=== PATIENT | male | born 1935 | race Caucasian/White ===

== ENCOUNTER → 2016-08-14 | Outpatient (CLI) | payer MEDICARE, BC ==
--- NOTE | 2016-08-14 15:47 | XR ---
EXAMINATION TYPE: XR chest 2V, XR ribs LT DATE OF EXAM: 08/14/2016 11:26 AM COMPARISON: Prior chest x-ray August 31, 2009. HISTORY: Fall injury with chest and left lower rib pain. TECHNIQUE: Frontal and lateral views of the chest are obtained. A frontal and oblique images left-si ded ribs are acquired. FINDINGS: There is chronic parenchymal change without focal air space opacity, pleural effusion, or pneumothorax seen. The cardiac silhouette size is enlarged with atherosclerotic aorta. There is extr a convex scoliotic curvature centered in the lower thoracic spine with multilevel spurring.. DGD in left GH joint is noted. There are old healed fracture deformities of left lateral sixth through eighth ribs. No acute displac ed left-sided rib fracture is clearly evident. Osseous structures are demineralized. IMPRESSION: 1. Cardiomegaly and chronic changes without acute pulmonary process. 2. Old minimally displaced healed left lateral rib fractures. No acute displaced rib fractures are cl early evident.
== END ==
LOC: RADXRMAIN 10:57
PROVIDERS: ATTEND Internal Medicine
DX: I51.7 Cardiomegaly (principal); Z87.81 Personal history of (healed) traumatic fracture
CPT/HCPCS: 71020

== ENCOUNTER → 2020-09-16 | Outpatient (CLI) | payer MEDICARE, BC ==
--- NOTE | 2020-09-16 14:32 | US ---
EXAMINATION TYPE: US venous doppler duplex LE DATE OF EXAM: 09/16/2020 2:18 PM COMPARISON: NONE CLINICAL HISTORY: R22.43 Localized swelling, mass and lump, lower li. edema SIDE PERFORMED: bilateral TECHNIQUE: The lower extremity deep venous system is examined utilizing real time linear array sonog apollo with graded compression, doppler sonography and color-flow sonography. VESSELS IMAGED: Common Femoral Vein Deep Femoral Vein Greater Saphenous Vein * Femoral Vein Popliteal Vein Small Saphenous Vein * Proximal Calf Veins (* superficial vessels) Right Leg: no evidence of DVT as visualized Left Leg: no evidence of DVT as visualized Grayscale, color doppler, spectral doppler imaging performed of the deep veins of the bilateral lower extremities. There is normal flow, compressibility, vascular waveforms. IMPRESSION: No ultrasound evidence for acute DVT in either lower extremity.
== END | disposition home or self-care (01) ==
LOC: RADUSWWP 13:30
PROVIDERS: ATTEND Internal Medicine
DX: R22.43 Localized swelling, mass and lump, lower limb, bilateral (principal)
CPT/HCPCS: 93970

== ENCOUNTER 2020-10-24 10:52 | Emergency (ER) | payer MEDICARE, BC ==
[2020-10-24 11:01] VITALS: RESP 16
--- NOTE | 2020-10-24 11:19 | ED ---
General Adult HPI - General Chief complaint: Urogenital Stated complaint: Hematuria Time Seen by Provider: 10/24/20 11:05 Source: patient, RN notes reviewed Mode of arrival: ambulatory Limitations: no limitations - History of Present Illness Initial comments: 85-year-old male presents emergency Department with chief complaint of hematuria. Patient states started late Sunday and has been persistent. Patient hurts when he urinates. Patient states he tried some [id number] Azo with no relief. She does take Coumadin no history of kidney issues. Patient states she's never had hematuria like this in the past mild lower abdominal pain no flank pain no chest pain or shortness breath no noted fevers or chills - Related Data Home Medications Medication Instructions Recorded Confirmed Aspirin [Adult Low Dose Aspirin EC] 81 mg PO DAILY 03/28/18 06/03/18 Digoxin [Lanoxin] 1 tab PO DAILY 03/28/18 06/03/18 Lovastatin [Mevacor] 10 mg PO HS 03/28/18 06/03/18 sitaGLIPtin PHOS/metFORMIN HCL 1 tab PO DAILY 03/28/18 06/03/18 [Janumet Xr 100-1,000 mg Tablet] Repaglinide [Prandin] 2 mg PO AC-TID 04/01/18 06/03/18 Warfarin [Coumadin] 1 tab PO DAILY 04/01/18 06/03/18 metFORMIN HCL 1,000 mg PO BID 04/01/18 06/03/18 Previous Rx's Medication Instructions Recorded Cephalexin [Keflex] 500 mg PO Q8HR #30 cap 10/24/20 Allergies Allergy/AdvReac Type Severity Reaction Status Date / Time No Known Allergies Allergy Verified 10/24/20 10:55 Review of Systems ROS Statement: Those systems with pertinent positive or pertinent negative responses have been documented in the HPI. ROS Other: All systems not noted in ROS Statement are negative. Past Medical History Past Medical History: Diabetes Mellitus, Hyperlipidemia History of Any Multi-Drug Resistant Organisms: None Reported Past Surgical History: Appendectomy, Heart Catheterization With Stent, Tonsillectomy Past Psychological History: No Psychological Hx Reported Smoking Status: Former smoker Past Alcohol Use History: Occasional Past Drug Use History: None Reported - Past Family History Mother Family Medical History: Cancer General Exam Limitations: no limitations General appearance: alert, in no apparent distress Head exam: Present: atraumatic, normocephalic, normal inspection Neck exam: Present: normal inspection, full ROM. Absent: tenderness, meningismus, lymphadenopathy Respiratory exam: Present: normal lung sounds bilaterally. Absent: respiratory distress, wheezes, rales, rhonchi, stridor Cardiovascular Exam: Present: regular rate, normal rhythm, normal heart sounds. Absent: systolic murmur, diastolic murmur, rubs, gallop, clicks GI/Abdominal exam: Present: soft, tenderness, normal bowel sounds. Absent: distended, guarding, rebound, rigid Back exam: Absent: CVA tenderness (R), CVA tenderness (L) Neurological exam: Present: alert Skin exam: Present: warm, dry, intact, normal color. Absent: rash Course Vital Signs 10/24/20 10:57 Temperature 97.4 F L Pulse Rate 69 Respiratory 16 Rate Blood Pressure 107/55 O2 Sat by Pulse 97 Oximetry Medical Decision Making - Medical Decision Making Urinalysis shows evidence of hematuria, UTI. Patient's labs unremarkable otherwise patient CT does not show any evidence of renal or bladder mass though there is some thickened wall consistent with cystitis. Patient was given Rocephin emergency from will be discharged on antibiotics and return parameters were discussed. - Lab Data Result diagrams: 10/24/20 11:39 10/24/20 11:39 Lab Results 10/24/20 10/24/20 10/24/20 Range/Units 11:39 11:39 11:39 WBC 13.8 H (3.8-10.6) k/uL RBC 5.18 (4.30-5.90) m/uL Hgb 14.9 (13.0-17.5) gm/dL Hct 45.0 (39.0-53.0) % MCV 86.9 (80.0-100.0) fL MCH 28.7 (25.0-35.0) pg MCHC 33.0 (31.0-37.0) g/dL RDW 13.5 (11.5-15.5) % Plt Count 294 (150-450) k/uL MPV 6.5 Neutrophils % 82 % Lymphocytes % 11 % Monocytes % 5 % Eosinophils % 0 % Basophils % 0 % Neutrophils # 11.3 H (1.3-7.7) k/uL Lymphocytes # 1.6 (1.0-4.8) k/uL Monocytes # 0.7 (0-1.0) k/uL Eosinophils # 0.1 (0-0.7) k/uL Basophils # 0.0 (0-0.2) k/uL PT 22.0 H (9.0-12.0) sec INR 2.3 H (<1.2) APTT 33.9 H (22.0-30.0) sec Sodium (137-145) mmol/L Potassium (3.5-5.1) mmol/L Chloride (98-107) mmol/L Carbon Dioxide (22-30) mmol/L Anion Gap mmol/L BUN (9-20) mg/dL Creatinine (0.66-1.25) mg/dL Est GFR (CKD-EPI)AfAm (>60 ml/min/1.73 sqM) Est GFR (CKD-EPI)NonAf (>60 ml/min/1.73 sqM) Glucose (74-99) mg/dL Plasma Lactic Acid Shaheed (0.7-2.0) mmol/L Calcium (8.4-10.2) mg/dL Total Bilirubin (0.2-1.3) mg/dL AST (17-59) U/L ALT (4-49) U/L Alkaline Phosphatase (38-126) U/L Total Protein (6.3-8.2) g/dL Albumin (3.5-5.0) g/dL Amylase (30-110) U/L Lipase (23-300) U/L Urine Color Red Urine Appearance Bloody (Clear) Urine RBC >182 H (0-5) /hpf Urine WBC >182 H (0-5) /hpf Urine Bacteria Rare H (None) /hpf 10/24/20 10/24/20 Range/Units 11:39 11:39 WBC (3.8-10.6) k/uL RBC (4.30-5.90) m/uL Hgb (13.0-17.5) gm/dL Hct (39.0-53.0) % MCV (80.0-100.0) fL MCH (25.0-35.0) pg MCHC (31.0-37.0) g/dL RDW (11.5-15.5) % Plt Count (150-450) k/uL MPV Neutrophils % % Lymphocytes % % Monocytes % % Eosinophils % % Basophils % % Neutrophils # (1.3-7.7) k/uL Lymphocytes # (1.0-4.8) k/uL Monocytes # (0-1.0) k/uL Eosinophils # (0-0.7) k/uL Basophils # (0-0.2) k/uL PT (9.0-12.0) sec INR (<1.2) APTT (22.0-30.0) sec Sodium 137 (137-145) mmol/L Potassium 5.3 H (3.5-5.1) mmol/L Chloride 103 (98-107) mmol/L Carbon Dioxide 28 (22-30) mmol/L Anion Gap 6 mmol/L BUN 21 H (9-20) mg/dL Creatinine 0.75 (0.66-1.25) mg/dL Est GFR (CKD-EPI)AfAm >90 (>60 ml/min/1.73 sqM) Est GFR (CKD-EPI)NonAf 83 (>60 ml/min/1.73 sqM) Glucose 108 H (74-99) mg/dL Plasma Lactic Acid Shaheed 1.9 (0.7-2.0) mmol/L Calcium 9.0 (8.4-10.2) mg/dL Total Bilirubin 0.8 (0.2-1.3) mg/dL AST 27 (17-59) U/L ALT 23 (4-49) U/L Alkaline Phosphatase 111 (38-126) U/L Total Protein 6.8 (6.3-8.2) g/dL Albumin 4.1 (3.5-5.0) g/dL Amylase 55 (30-110) U/L Lipase 162 (23-300) U/L Urine Color Urine Appearance (Clear) Urine RBC (0-5) /hpf Urine WBC (0-5) /hpf Urine Bacteria (None) /hpf Disposition Clinical Impression: UTI (urinary tract infection) Disposition: HOME SELF-CARE Condition: Stable Instructions (If sedation given, give patient instructions): Urinary Tract Infection in Men (ED) Additional Instructions: Please return to the Emergency Department if symptoms worsen or any other concerns. Prescriptions: Cephalexin [Keflex] 500 mg PO Q8HR #30 cap Is patient prescribed a controlled substance at d/c from ED?: No Referrals: Maskoni,Bashar, MD [Primary Care Provider] - 1-2 days Basim Shaw MD [STAFF PHYSICIAN] - 1-2 days Time of Disposition: 12:41
[2020-10-24 11:50] LABS: Basophils % (A) 0 %; Eosinophils # (A) 0.1 k/uL (0-0.7); Eosinophils % (A) 0 %; HGB 14.9 gm/dL (13.0-17.5); Lymphocytes # (A) 1.6 k/uL (1.0-4.8); Lymphocytes % (A) 11 %; MCH 28.7 pg (25.0-35.0); MCV 86.9 fL (80.0-100.0); Mean Platelet Volume 6.5; Monocytes # (A) 0.7 k/uL (0-1.0); Monocytes % (A) 5 %; Neutrophils # (A) 11.3 k/uL (1.3-7.7); Neutrophils % (A) 82 %; Platelet Count 294 k/uL (150-450); RBC 5.18 m/uL (4.30-5.90); RDW 13.5 % (11.5-15.5); WBC 13.8 k/uL (3.8-10.6)
[2020-10-24 11:59] LABS: ALT 23 U/L (4-49); AST 27 U/L (17-59); African American GFR (CKD) >90 (>60 ml/min/1.73 sqM); Albumin 4.1 g/dL (3.5-5.0); Alkaline Phosphatase 111 U/L (38-126); Amylase 55 U/L (30-110); Anion Gap 6 mmol/L; Blood Urea Nitrogen 21 mg/dL (9-20); Carbon Dioxide 28 mmol/L (22-30); Chloride 103 mmol/L (98-107); Glucose 108 mg/dL (74-99); Lipase 162 U/L (23-300); Non-African American GFR(CKD) 83 (>60 ml/min/1.73 sqM); Potassium 5.3 mmol/L (3.5-5.1); Sodium 137 mmol/L (137-145); Total Bilirubin 0.8 mg/dL (0.2-1.3); Total Protein 6.8 g/dL (6.3-8.2)
[2020-10-24 12:04] LABS: Bacteria,Urine Rare /hpf; RBC,Urine >182 /hpf (0-5); WBC,Urine >182 /hpf (0-5)
[2020-10-24 12:06] LABS: INR 2.3 (<1.2); Partial Thromboplastin Time 33.9 sec (22.0-30.0)
[2020-10-24 12:09] LABS: Appearance,Urine Bloody (Clear); Color,Urine Red
--- NOTE | 2020-10-24 12:37 | CT ---
EXAMINATION TYPE: CT abdomen pelvis wo con DATE OF EXAM: 10/24/2020 COMPARISON: HISTORY: hematuria CT DLP: 537.4 mGycm Automated exposure control for dose reduction was used. TECHNIQUE: Helical acquisition of images from the lung bases through the pelvis. FINDINGS: Lack of intravenous contrast could compromise sensitivity. The heart is enlarged. There is metallic density at the level of the mitral annulus. Coronary artery calcifications are present. Some metallic density seen at the root of the aorta. LUNG BASES: There are some pleural calcifications present. Interstitium is increased. No pleural martin cardial effusion. AORTA: No significant abnormality is appreciated. LIVER/GB: No significant abnormality is appreciated. PANCREAS: No significant abnormality is seen. SPLEEN: No significant abnormality is seen. ADRENALS: 13 mm soft tissue left adrenal nodule is seen. KIDNEYS: No significant abnormality is seen. REPRODUCTIVE ORGANS: Prostate is enlarged and shows associated calcification URINARY BLADDER: There is a thickened wall. Question some perivesicle inflammatory change BOWEL: Diverticular changes noted especially in the sigmoid colon and descending colon, there is daryn e retained fecal debris present within the colon associated transverse colon and ascending colon, no evident appendicitis. FREE AIR: No Free Air is visible. ASCITES: None visible. PELVIC ADENOPATHY: None visualized. RETROPERITONEAL ADENOPATHY: No Retroperitoneal Adenopathy visible. OSSEOUS STRUCTURES: Degenerative disc changes, facet arthropathy change present within the lumbar sp ine, spondylolysis bilaterally at L5, anterolisthesis grade 1 to grade 2 L5-S1. 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 DIVERTICULOSIS. NONCONTRA ST EXAM AND ADDITIONAL FINDINGS ABOVE
[2020-10-24] MEDS ORDERED: cefTRIAXone IN SWFI 1,000 MG/10 ML SYRINGE IVP STA (12:38)
[2020-10-24] MEDS ORDERED: CEPHALEXIN 500MG STARTER PACK 4 CAP BTL PO STA (12:46)
[2020-10-24 13:05] VITALS: BP 119/58; PULSE 82; TEMP 97.6
== END 2020-10-24 13:05 | disposition home or self-care (01) ==
LOC: EC 10:52
DX: N39.0 Urinary tract infection, site not specified (principal); E11.9 Type 2 diabetes mellitus without complications; E78.5 Hyperlipidemia, unspecified; Z87.891 Personal history of nicotine dependence; Z79.82 Long term (current) use of aspirin; Z79.84 Long term (current) use of oral hypoglycemic drugs; Z79.01 Long term (current) use of anticoagulants
CPT/HCPCS: 36415; 80053; 82150; 83605; 83690; 85025; 85610; 85730; 81001; 87086; 74176; 99284; 96374; J0696

== ENCOUNTER → 2021-12-28 | Outpatient (CLI) | payer MEDICARE ==
--- NOTE | 2021-12-28 15:19 | XR ---
Right shoulder Limited HISTORY: Pain 2 views of the right shoulder, comparison chest x-ray 07/17/2016 Calcification is present in the insertion of the rotator cuff tendon on the proximal humerus. Acromio n clavicular joint shows arthropathy. Alignment is maintained, there is no evident fracture or disloc ation. Right upper lung shows some questionable scarring laterally versus pleural plaques similar to prior chest x-ray. Distal acromion appears somewhat downturned. IMPRESSION: Possible calcific tendinitis. Acromioclavicular joint arthropathy. Correlate for impingem ent. Findings in the right lung as described..
== END | disposition home or self-care (01) ==
LOC: RADXRMAIN 14:30
PROVIDERS: ATTEND Internal Medicine
DX: M19.011 Primary osteoarthritis, right shoulder (principal)

== ENCOUNTER 2022-04-05 12:36 | Inpatient (IN) | payer MEDICARE, BC ==
--- NOTE | 2022-04-05 13:38 | ED ---
General Adult HPI - General Chief complaint: Extremity Injury, Upper Stated complaint: rt arm pain/swelling Time Seen by Provider: 04/05/22 12:40 Source: patient, RN notes reviewed, old records reviewed Mode of arrival: ambulatory Limitations: no limitations - History of Present Illness Initial comments: This is an 86-year-old male presents emergency department stating that over the last 2 days he has had some significant swelling in his right arm he doesn't believe he was stung or bit patient is not sure. There is an area of ecchymosis on the posterior medial aspect of the right elbow and there is an area of skin breakdown. Or possibly sloughing of the skin in that area. The bicep is erythematous and warm however the rest of the arm feels at normal temperature but touching the bicep does cause him some pain. Patient denies any fever chill s. Patient denies any injury. Patient denies any difficulty breathing shortness of breath per patient any other symptoms at this time. Patient denies ever having something similar in the past. Patient denies any other extremity with swelling or edema - Related Data Home Medications Medication Instructions Recorded Confirmed Aspirin [Adult Low Dose Aspirin EC] 81 mg PO DAILY 03/28/18 06/03/18 Digoxin [Lanoxin] 1 tab PO DAILY 03/28/18 06/03/18 Lovastatin [Mevacor] 10 mg PO HS 03/28/18 06/03/18 sitaGLIPtin PHOS/metFORMIN HCL 1 tab PO DAILY 03/28/18 06/03/18 [Janumet Xr 100-1,000 mg Tablet] Repaglinide [Prandin] 2 mg PO AC-TID 04/01/18 06/03/18 Warfarin [Coumadin] 1 tab PO DAILY 04/01/18 06/03/18 metFORMIN HCL [Glucophage] 1,000 mg PO BID 04/01/18 06/03/18 Previous Rx's Medication Instructions Recorded Cephalexin [Keflex] 500 mg PO Q8HR #30 cap 10/24/20 Allergies Allergy/AdvReac Type Severity Reaction Status Date / Time No Known Allergies Allergy Verified 04/05/22 12:42 Review of Systems ROS Statement: Those systems with pertinent positive or pertinent negative responses have been documented in the HPI. ROS Other: All systems not noted in ROS Statement are negative. Past Medical History Past Medical History: Diabetes Mellitus, Hearing Disorder / Deafness, Hyperlipidemia History of Any Multi-Drug Resistant Organisms: None Reported Past Surgical History: Appendectomy, Heart Catheterization With Stent, Tonsillectomy Past Psychological History: No Psychological Hx Reported Smoking Status: Former smoker Past Alcohol Use History: Occasional Past Drug Use History: None Reported - Past Family History Mother Family Medical History: Cancer General Exam - General Exam Comments Initial Comments: GENERAL: Patient is well-developed and well-nourished. Patient is nontoxic and well- hydrated and is in no acute distress. Patient has no pain in the arm unless it is touched in the biceps. ENT Neck is soft and supple. No significant lymphadenopathy is noted. Oropharynx is clear. Moist mucous membranes. Neck has full range of motion without eliciting any pain. EYES: The sclera were anicteric and conjunctiva were pink and moist. Extraocular movements were intact and pupils were equal round and reactive to light. Eyelids were unremarkable. PULMONARY: Unlabored respirations. Good breath sounds bilaterally. No audible rales rhonchi or wheezing was noted. CARDIOVASCULAR: There is a regular rate and rhythm without any murmurs gallops or rubs. Patient has palpable radial pulses ABDOMEN: Soft and nontender with normal bowel sounds. SKIN: There is a breakdown of the skin in the posterior elbow region where the ecchymosis exists. NEUROLOGIC: Patient is alert and oriented x3. Cranial nerves II through XII are grossly intact. Motor and sensory are also intact. Normal speech, volume and content. Symmetrical smile. MUSCULOSKELETAL: Normal extremities with adequate strength and full range of motion. Patient's left arm from the shoulder down is edematous all the way to the hand. Patient has some erythema on the anterior biceps area and it is tender to touch that area. LYMPHATICS: No significant lymphadenopathy is noted PSYCHIATRIC: Normal psychiatric evaluation. Limitations: no limitations Course Vital Signs 04/05/22 12:38 Temperature 98.0 F Pulse Rate 80 Respiratory 20 Rate Blood Pressure 133/80 O2 Sat by Pulse 96 Oximetry Medical Decision Making - Medical Decision Making Ultrasound of the right upper arm shows a DVT. Because of the significant swelling of the arm and the break of skin on the posterior elbow along with the fact the patient is oriented Coumadin I felt the patient needed to be admitted and be seen bypass. Spoke with sound physician's they were in agreement with this. I admitted the patient wrote admitting orders I consulted vascular - Lab Data Result diagrams: 04/05/22 13:34 04/05/22 13:34 Lab Results 04/05/22 04/05/22 04/05/22 Range/Units 13:34 13:34 13:34 WBC 8.5 (3.8-10.6) k/uL RBC 4.12 L (4.30-5.90) m/uL Hgb 10.9 L (13.0-17.5) gm/dL Hct 33.8 L (39.0-53.0) % MCV 82.0 (80.0-100.0) fL MCH 26.6 (25.0-35.0) pg MCHC 32.4 (31.0-37.0) g/dL RDW 14.6 (11.5-15.5) % Plt Count 443 (150-450) k/uL MPV 7.2 Neutrophils % 81 % Lymphocytes % 9 % Monocytes % 6 % Eosinophils % 0 % Basophils % 0 % Neutrophils # 6.9 (1.3-7.7) k/uL Lymphocytes # 0.8 L (1.0-4.8) k/uL Monocytes # 0.5 (0-1.0) k/uL Eosinophils # 0.0 (0-0.7) k/uL Basophils # 0.0 (0-0.2) k/uL Hypochromasia Slight Sodium 135 L (137-145) mmol/L Potassium 4.9 (3.5-5.1) mmol/L Chloride 102 (98-107) mmol/L Carbon Dioxide 26 (22-30) mmol/L Anion Gap 7 mmol/L BUN 17 (9-20) mg/dL Creatinine 0.69 (0.66-1.25) mg/dL Est GFR (CKD-EPI)AfAm >90 (>60 ml/min/1.73 sqM) Est GFR (CKD-EPI)NonAf 86 (>60 ml/min/1.73 sqM) Glucose 193 H (74-99) mg/dL Plasma Lactic Acid Shaheed 2.8 H* (0.7-2.0) mmol/L Calcium 7.9 L (8.4-10.2) mg/dL Total Bilirubin 0.7 (0.2-1.3) mg/dL AST 34 (17-59) U/L ALT 31 (4-49) U/L Alkaline Phosphatase 143 H (38-126) U/L Total Protein 5.8 L (6.3-8.2) g/dL Albumin 2.9 L (3.5-5.0) g/dL Disposition Clinical Impression: DVT (deep venous thrombosis) Disposition: ADMITTED IP TO THIS HOSP Referrals: None,Stated [Primary Care Provider] - 1-2 days Time of Disposition: 15:05
[2022-04-05 13:42] LABS: Basophils % (A) 0 %; Eosinophils % (A) 0 %; HCT 33.8 % (39.0-53.0); HGB 10.9 gm/dL (13.0-17.5); Hypochromasia Slight; Lymphocytes # (A) 0.8 k/uL (1.0-4.8); Lymphocytes % (A) 9 %; MCH 26.6 pg (25.0-35.0); MCHC 32.4 g/dL (31.0-37.0); Mean Platelet Volume 7.2; Monocytes # (A) 0.5 k/uL (0-1.0); Monocytes % (A) 6 %; Neutrophils # (A) 6.9 k/uL (1.3-7.7); Neutrophils % (A) 81 %; Platelet Count 443 k/uL (150-450); RBC 4.12 m/uL (4.30-5.90); RDW 14.6 % (11.5-15.5); WBC 8.5 k/uL (3.8-10.6)
[2022-04-05 13:53] LABS: ALT 31 U/L (4-49); AST 34 U/L (17-59); African American GFR (CKD) >90 (>60 ml/min/1.73 sqM); Albumin 2.9 g/dL (3.5-5.0); Alkaline Phosphatase 143 U/L (38-126); Anion Gap 7 mmol/L; Blood Urea Nitrogen 17 mg/dL (9-20); Calcium 7.9 mg/dL (8.4-10.2); Carbon Dioxide 26 mmol/L (22-30); Chloride 102 mmol/L (98-107); Glucose 193 mg/dL (74-99); Non-African American GFR(CKD) 86 (>60 ml/min/1.73 sqM); Potassium 4.9 mmol/L (3.5-5.1); Sodium 135 mmol/L (137-145); Total Bilirubin 0.7 mg/dL (0.2-1.3); Total Protein 5.8 g/dL (6.3-8.2)
--- NOTE | 2022-04-05 14:19 | US ---
EXAMINATION TYPE: US venous doppler duplex UE RT DATE OF EXAM: 04/05/2022 COMPARISON: NONE CLINICAL HISTORY: Swollen arm. red, hot, swollen right arm that is weeping, no h/o dvt, no known inju ry SIDE PERFORMED: Right Right Arm: Brachial veins at mid upper arm had internal echoes, were dilated and not compressible. Pr obable DVT. Brachial vein at axilla junction and brachial veins at antecubital fossa were wnl. IMPRESSION: Findings compatible with DVT as noted above.
[2022-04-05] MEDS ORDERED: VANCOMYCIN IV PER PHARMACY 1 EACH MISC MISCELLANE SCH (15:30)
[2022-04-05] MEDS ORDERED: HEPARIN SODIUM 1,000 UN/ML (10ML VL) IV PRN (15:34)
[2022-04-05] MEDS ORDERED: HEPARIN SODIUM 1,000 UN/ML (10ML VL) IV ONE (15:34)
[2022-04-05] MEDS ORDERED: METOPROLOL SUCCINATE (ER) 25 MG TAB.ER.24H PO STA (15:50)
[2022-04-05] MEDS ORDERED: DEXTROSE 50% SYRINGE 50 ML IVP PRN (15:56)
[2022-04-05] MEDS ORDERED: VANCOMYCIN 1,500 MG in SODIUM CHLORIDE 0.9% 500 ML 500 ML IVPB ONE (16:00)
[2022-04-05] MEDS: PANTOPRAZOLE 40 MG TABLET PO SCH (16:23)
--- NOTE | 2022-04-05 16:44 | XR ---
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 Elbow joint is intact. There is soft tissue swelling posterior to the distal humeru s. There is vascular calcification. IMPRESSION: There is some soft tissue swelling around the lower humerus. No fracture seen. Osteoarthr itis in the shoulder joint.
[2022-04-05 16:47] LABS: Basophils % (A) 0 %; Eosinophils % (A) 0 %; HCT 35.8 % (39.0-53.0); HGB 11.5 gm/dL (13.0-17.5); Hypochromasia Moderate; Lymphocytes # (A) 1.5 k/uL (1.0-4.8); Lymphocytes % (A) 17 %; MCH 26.5 pg (25.0-35.0); MCV 82.7 fL (80.0-100.0); Mean Platelet Volume 7.1; Monocytes # (A) 0.5 k/uL (0-1.0); Monocytes % (A) 6 %; Neutrophils # (A) 6.2 k/uL (1.3-7.7); Neutrophils % (A) 73 %; Platelet Count 484 k/uL (150-450); RBC 4.32 m/uL (4.30-5.90); RDW 14.6 % (11.5-15.5); WBC 8.5 k/uL (3.8-10.6)
[2022-04-05] MEDS: SODIUM CHLORIDE 0.9% 1,000 ML IV SCH (16:52)
--- NOTE | 2022-04-05 16:53 | P.HPIM ---
History of Present Illness H&P Date: 04/05/22 Chief Complaint: RIGHT ARM SWELLING This is a pleasant 86-year-old male who presents to [facility] with sudden onset right upper extremity swelling and pain. About a week ago patient had a fall and hit his right arm. Patient didn't think anything of it a nd went about his day. Patient also states that he had a presyncopal fall earlier today. Patient's son came to visit him and asked his father why his right arm was swollen. Patient is a poor historian and really didn't think anything of it. As a result, patient's son brought him in to the ER for further evaluation. Ultrasound of the right upper extremity was ordered and DVT was identified. Patient has a known history of A. fib and is on Coumadin and digoxin. Her son and patient patient is very responsible taking his medications as directed. Patient is a type II diabetic and has noted that early in the morning his blood sugars drop in the 50s. Patient also has history of hypertension and hyperlipidemia. Patient currently denies chest pain, shortness breath, nausea, vomiting, fever, or chills. Laboratory data was significant for hemoglobin of 10.9 hematocrit of 33.8 lactic acid of 2.8 and calcium 7.9. EKG was not done yet in the ER when he was evaluated the patient. Review of Systems A 14 point review of systems was assessed patient was only positive for those discussed in HPI Past Medical History Past Medical History: Atrial Fibrillation, Dementia, Diabetes Mellitus, Hearing Disorder / Deafness, Hyperlipidemia History of Any Multi-Drug Resistant Organisms: None Reported Past Surgical History: Appendectomy, Heart Catheterization With Stent, Tonsille ctomy Past Psychological History: No Psychological Hx Reported Smoking Status: Former smoker Past Alcohol Use History: Occasional Past Drug Use History: None Reported - Past Family History Mother Family Medical History: Cancer Medications and Allergies Home Medications Medication Instructions Recorded Confirmed Type Warfarin [Coumadin] 5 mg PO SUTUWETHSA 04/01/18 04/05/22 History metFORMIN HCL [Glucophage] 1,000 mg PO BID 04/01/18 04/05/22 History Atorvastatin [Lipitor] 40 mg PO DAILY 04/05/22 04/05/22 History Digoxin [Digitek] 125 mcg PO DAILY 04/05/22 04/05/22 History Insulin Glargine,Hum.rec.anlog 27 units SQ DAILY@1130 04/05/22 04/05/22 History [Damon Campbelljanetsandro] Repaglinide [Prandin] 1 mg PO TID 04/05/22 04/05/22 History Warfarin [Coumadin] 7.5 mg PO MOFR 04/05/22 04/05/22 History lisinopriL [Zestril] 20 mg PO DAILY 04/05/22 04/05/22 History Allergies Allergy/AdvReac Type Severity Reaction Status Date / Time No Known Allergies Allergy Verified 04/05/22 15:37 Physical Exam Osteopathic Statement: *. No significant issues noted on an osteopathic structural exam other than those noted in the History and Physical/Consult. Vitals: Vital Signs Temp Pulse Resp BP Pulse Ox 04/05/22 12:38 98.0 F 80 20 133/80 96 Intake and Output 04/05/22 04/05/22 04/05/22 06:59 14:59 22:59 Other: Weight 77.111 kg General: [non toxic], [no distress], [appears at stated age] Derm: [warm], [dry] Head: [atraumatic], [normocephalic], [symmetric] Eyes: [EOMI], [no lid lag], [anicteric sclera] Mouth: [no lip lesion], [mucus membranes moist] Cardiovascular: [Irregular], [positive posterior tibial pulse bilateral], Lungs: [CTA bilateral], [no rhonchi, no rales] , [no accessory muscle use] Abdominal: [soft], [ nontender to palpation], [no guarding], [no appreciable organomegaly] Ext: [no gross muscle atrophy], [no edema], [no contractures] Neuro: [ CN II-XI grossly intact], [no focal neuro deficits] Psych: [Alert and oriented to person and place], [appropriate affect] Results CBC & Chem 7: 04/05/22 13:34 04/05/22 13:34 Labs: Abnormal Lab Results - Last 24 Hours (Table) 04/05/22 04/05/22 04/05/22 Range/Units 13:34 13:34 13:34 RBC 4.12 L (4.30-5.90) m/uL Hgb 10.9 L (13.0-17.5) gm/dL Hct 33.8 L (39.0-53.0) % Lymphocytes # 0.8 L (1.0-4.8) k/uL Sodium 135 L (137-145) mmol/L Glucose 193 H (74-99) mg/dL Plasma Lactic Acid Shaheed 2.8 H* (0.7-2.0) mmol/L Calcium 7.9 L (8.4-10.2) mg/dL Alkaline Phosphatase 143 H (38-126) U/L Total Protein 5.8 L (6.3-8.2) g/dL Albumin 2.9 L (3.5-5.0) g/dL Thrombosis Risk Factor Assmnt - DVT/VTE Prophylaxis DVT/VTE Prophylaxis: Pharmacologic Prophylaxis ordered Assessment and Plan Assessment: 1. Acute right upper extremity DVT Heparin with pharmacy to dose Consult vascular Telemetry 2. Right upper extremity open wound with cellulitis Vancomycin with pharmacy to dose Wound care Check pro-calcitonin level wound culture 3. Arrhythmia with history of atrial fibrillation Stat EKG Telemetry Metoprolol 25 mg by mouth daily with parameters Restart digoxin Check digoxin level Vitals every 4 hours Patient is currently on Coumadin Check INR 4. Recurrent falls likely due to presyncope versus syncope PT OT Fall precautions CT of the brain without contrast Check orthostatics Check echo and carotid doppler 5. Insulin-dependent diabetes mellitus type 2 with recurrent episodes of hypoglycemia Decrease long-acting insulin to 18 units daily Insulin sliding scale Glucose monitoring every 6 hours 6. History of hyperlipidemia Restart statin 7. Normocytic anemia Check iron studies Monitor CBC No sign of acute GI bleeding 8. GI DVT prophylaxis 9. A.m. labs Greater than 45 minutes spent coordinating care, documenting, talking to family, and counseling patient. Disposition: Length of stay is greater than 2 midnights Time with Patient: Greater than 30
[2022-04-05 16:57] LABS: INR 4.3 (<1.2); Partial Thromboplastin Time 47.2 sec (22.0-30.0); Prothrombin Time 43.3 sec (9.0-12.0)
[2022-04-05] MEDS: HEPARIN SOD,PORK IN 0.45% NACL 25,000 UNIT in 0.45% NACL 1 250ML.BAG IV SCH (16:57)
--- NOTE | 2022-04-05 16:59 | CT ---
EXAMINATION TYPE: CT brain wo con DATE OF EXAM: 04/05/2022 COMPARISON: None HISTORY: Recurrent falls CT DLP: 1129.4 mGycm Automated exposure control for dose reduction was used. Images obtained of the brain with no contrast. There is cerebral cortical atrophy. There is a 4 cm hypodense area in the left posterior frontal lobe consistent with old infarct and encephalomalacia. There is no mass effect or midline shift. No sign of intracranial hemorrhage. Calvarium is intact. 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 Cerebral atrophy. No acute intracranial abnormality.
--- NOTE | 2022-04-05 17:51 | US ---
EXAMINATION TYPE: US carotid duplex BILAT DATE OF EXAM: 04/05/2022 COMPARISON: NONE CLINICAL HISTORY: syncope. syncope TECHNIQUE: Carotid duplex ultrasound examination. Indirect Doppler criteria was utilized. FINDINGS: EXAM MEASUREMENTS: RIGHT: Peak Systolic Velocity (PSV) cm/sec ----- Right CCA: 72.4 ----- Right ICA: 138.7 ----- Right ECA: 124.2 ICA/CCA ratio: 1.9 RIGHT: End Diastole cm/sec ----- Right CCA: 17.5 ----- Right ICA: 24.1 ----- Right ECA: 11.1 LEFT: Peak Systolic Velocity (PSV) cm/sec ----- Left CCA: 82.7 ----- Left ICA: 88.7 ----- Left ECA: 70.9 ICA/CCA ratio: 1.1 LEFT: End Diastole cm/sec ----- Left CCA: 14.1 ----- Left ICA: 24.1 ----- Left ECA: 9.5 VERTEBRALS (direction of flow): Right Vertebral: Antegrade Left Vertebral: Antegrade Rhythm: Normal MECHANISM ASSEMBLER NOTES: Plaque was visualized in bilateral bulbs IMPRESSION: There is slight elevated right internal carotid artery velocities suggestive of 50-70% stenosis. Ther e is close to 50% stenosis in the left internal carotid artery. There is antegrade flow in the verteb ral arteries. Criteria for Assigning % of Stenosis / Diameter reduction (Estimation based on the indirect measurements of the internal carotid artery velocities (ICA PSV). 1. Normal (no stenosis)=ICA PSV < 125 cm/s: ratio < 2.0: ICA EDV<40 cm/s. 2. Less than 50% stenosis=ICA PSV < 125 cm/s: ratio < 2.0: ICA EDV<40 cm/s. 3. 50 to 69% stenosis=ICA PSV of 125 to 230 cm/s: ration 2.0 ? 4.0: ICA EDV 40-100 cm/s. 4. Greater than 70% stenosis to near occlusion= ICA PSV > 230 cm/s: ratio > 4.0: ICA EDV > 100 cm/s. 5. Near occlusion= ICA PSV velocities may be low or undetectable: variable ratio and ICA EDV. 6. Total occlusion=unable to detect flow.
[2022-04-05 18:05] LABS: Glucose,Whole Blood 79 mg/dL (70-110)
[2022-04-05] MEDS: INSULIN ASPART (NovoLOG) 100 UNIT/ML VIAL SQ SCH (18:05)
[2022-04-05] MEDS: CALCIUM CARB-VIT D 500 MG-5 MCG TAB PO SCH (18:11)
[2022-04-05 20:07] LABS: Digoxin 0.6 ng/mL
[2022-04-05 20:15] LABS: Glucose,Whole Blood 207 mg/dL (70-110)
[2022-04-06 02:58] LABS: % Iron Saturation 4.51 (15.00-50.00)
[2022-04-06 03:07] LABS: Glucose,Whole Blood 95 mg/dL (70-110)
[2022-04-06] MEDS: SODIUM CHLORIDE 0.9% 1,000 ML IV SCH (05:59)
[2022-04-06] MEDS: VANCOMYCIN 1,500 MG in SODIUM CHLORIDE 0.9% 500 ML 500 ML IVPB SCH ×2 (06:00→17:45)
[2022-04-06 07:23] LABS: Glucose,Whole Blood 51 mg/dL (70-110)
[2022-04-06] MEDS: INSULIN ASPART (NovoLOG) 100 UNIT/ML VIAL SQ SCH ×3 (07:27→18:17)
[2022-04-06 07:44] LABS: Glucose,Whole Blood 79 mg/dL (70-110)
[2022-04-06 08:32] LABS: ALT 32 U/L (4-49); AST 35 U/L (17-59); African American GFR (CKD) >90 (>60 ml/min/1.73 sqM); Albumin 2.4 g/dL (3.5-5.0); Albumin/Globulin Ratio 0.9; Alkaline Phosphatase 113 U/L (38-126); Anion Gap 3 mmol/L; Blood Urea Nitrogen 14 mg/dL (9-20); Calcium 7.6 mg/dL (8.4-10.2); Carbon Dioxide 23 mmol/L (22-30); Chloride 107 mmol/L (98-107); Globulin 2.8 g/dL; Non-African American GFR(CKD) 88 (>60 ml/min/1.73 sqM); Potassium 4.2 mmol/L (3.5-5.1); Sodium 133 mmol/L (137-145); Total Bilirubin 0.3 mg/dL (0.2-1.3); Total Protein 5.2 g/dL (6.3-8.2)
[2022-04-06 08:34] LABS: Glucose 44 mg/dL (74-99)
[2022-04-06] MEDS: CALCIUM CARB-VIT D 500 MG-5 MCG TAB PO SCH ×2 (09:01→18:21)
[2022-04-06] MEDS: METOPROLOL SUCCINATE (ER) 25 MG TAB.ER.24H PO SCH (09:02)
[2022-04-06] MEDS: PANTOPRAZOLE 40 MG TABLET PO SCH (09:02)
[2022-04-06] MEDS: ATORVASTATIN 40 MG TAB PO SCH (09:02)
[2022-04-06] MEDS: DIGOXIN 125 MCG TAB PO SCH (09:02)
--- NOTE | 2022-04-06 09:57 | P.GSCN ---
History of Present Illness Consult date: 04/06/22 Reason for Consult: Right upper extremity DVT Requesting physician: Tony Dunbar History of present illness: This is a pleasant 86-year-old male who presented to the emergency department yesterday brought in by his son with concerns for right upper extremity swelling. Apparently the patient had fallen about a week ago and hit the right arm but he did not think anything of it. He has been having possible syncopal episodes and has had 2-3 falls within the last couple weeks. Patient has a past medical history including coronary artery disease status post stent, diabetes mellitus, hyperlipidemia, hypertension, atrial fibrillation on Coumadin and digoxin. The patient had a venous Doppler done of the right or extremity with findings compatible with DVT. Vascular surgery was consulted for a right upper extremity DVT. Patient states he had been taking his Coumadin, his INR was 4.3 on admission. He also was noted to have an elevated lactic acid. Patient also had x-ray of the right humerus that showed some soft tissue swelling around the lower humerus. No fracture seen. 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 Patient also was worked up for syncope and had a CT of the brain that reported old left frontal cortical infarct. Cerebral atrophy. No acute intracranial abnormality. Carotid duplex reported right ICA stenosis 50-70%, close to 50% stenosis left internal carotid artery. Antegrade flow in the vertebral arteries. Review of Systems A 14 point review systems was completed all pertinent positives and negatives as stated in the HPI. Past Medical History Past Medical History: Atrial Fibrillation, Dementia, Diabetes Mellitus, Hearing Disorder / Deafness, Hyperlipidemia, Hypertension Additional Past Medical History / Comment(s): neuropathy History of Any Multi-Drug Resistant Organisms: None Reported Past Surgical History: Appendectomy, Heart Catheterization With Stent, Tonsillectomy Past Anesthesia/Blood Transfusion Reactions: No Reported Reaction Date of Last Stent Placement:: 1996 Past Psychological History: No Psychological Hx Reported Smoking Status: Former smoker Past Alcohol Use History: Rare Past Drug Use History: None Reported - Past Family History Mother Family Medical History: Cancer Additional Family Medical History / Comment(s): Father Family Medical History: Congestive Heart Failure (CHF) Additional Family Medical History / Comment(s): 82 years old Medications and Allergies Home Medications Medication Instructions Recorded Confirmed Type Warfarin [Coumadin] 5 mg PO SUTUWETHSA 04/01/18 04/05/22 History metFORMIN HCL [Glucophage] 1,000 mg PO BID 04/01/18 04/05/22 History Atorvastatin [Lipitor] 40 mg PO DAILY 04/05/22 04/05/22 History Digoxin [Digitek] 125 mcg PO DAILY 04/05/22 04/05/22 History Insulin Glargine,Hum.rec.anlog 27 units SQ DAILY@1130 04/05/22 04/05/22 History [Toujeo Max Solostar] Repaglinide [Prandin] 1 mg PO TID 04/05/22 04/05/22 History Warfarin [Coumadin] 7.5 mg PO MOFR 04/05/22 04/05/22 History lisinopriL [Zestril] 20 mg PO DAILY 04/05/22 04/05/22 History Allergies Allergy/AdvReac Type Severity Reaction Status Date / Time No Known Allergies Allergy Verified 04/05/22 15:37 Surgical - Exam Vital Signs Temp Pulse Resp BP Pulse Ox 98.0 F 80 20 133/80 96 04/05/22 12:38 04/05/22 12:38 04/05/22 12:38 04/05/22 12:38 04/05/22 12:38 General appearance: The patient is alert, oriented, appears in no acute distress. HET: Head is normocephalic and atraumatic. Pupils are equal and reactive. hard of hearing Neck: Supple. Heart: Irregular Lungs: Normal expansion, normal respiratory effort. Abdomen: Soft, nontender, nondistended. Extremities: Right upper extremity with swelling, significant swelling ecchymosis above the elbow. Noted area of excoriation on medial aspect of right upper extremity. Patient has full range of motion Neurological: Awake and alert Results - Labs 04/05/22 16:15 04/06/22 07:05 Abnormal Lab Results - Last 24 Hours (Table) 04/05/22 04/05/22 04/05/22 Range/Units 13:34 13:34 13:34 RBC 4.12 L (4.30-5.90) m/uL Hgb 10.9 L (13.0-17.5) gm/dL Hct 33.8 L (39.0-53.0) % Plt Count (150-450) k/uL Lymphocytes # 0.8 L (1.0-4.8) k/uL PT (9.0-12.0) sec INR (<1.2) APTT (22.0-30.0) sec Sodium 135 L (137-145) mmol/L Glucose 193 H (74-99) mg/dL POC Glucose (mg/dL) (70-110) mg/dL Hemoglobin A1c (0.0-6.0) % Plasma Lactic Acid Shaheed 2.8 H* (0.7-2.0) mmol/L Calcium 7.9 L (8.4-10.2) mg/dL Iron (65-175) ug/dL TIBC (228-460) ug/dL % Saturation (15.00-50.00) Transferrin (204.0-354.0) mg/dL Alkaline Phosphatase 143 H (38-126) U/L Total Protein 5.8 L (6.3-8.2) g/dL Albumin 2.9 L (3.5-5.0) g/dL Procalcitonin (0.02-0.09) ng/mL 04/05/22 04/05/22 04/05/22 Range/Units 16:15 16:15 16:15 RBC (4.30-5.90) m/uL Hgb 11.5 L (13.0-17.5) gm/dL Hct 35.8 L (39.0-53.0) % Plt Count 484 H (150-450) k/uL Lymphocytes # (1.0-4.8) k/uL PT 43.3 H (9.0-12.0) sec INR 4.3 H (<1.2) APTT 47.2 H (22.0-30.0) sec Sodium (137-145) mmol/L Glucose (74-99) mg/dL POC Glucose (mg/dL) (70-110) mg/dL Hemoglobin A1c (0.0-6.0) % Plasma Lactic Acid Shaheed (0.7-2.0) mmol/L Calcium (8.4-10.2) mg/dL Iron 10 L (65-175) ug/dL TIBC 220 L (228-460) ug/dL % Saturation 4.51 L (15.00-50.00) Transferrin 157.0 L (204.0-354.0) mg/dL Alkaline Phosphatase (38-126) U/L Total Protein (6.3-8.2) g/dL Albumin (3.5-5.0) g/dL Procalcitonin (0.02-0.09) ng/mL 04/05/22 04/05/22 04/05/22 Range/Units 16:15 16:39 16:39 RBC (4.30-5.90) m/uL Hgb (13.0-17.5) gm/dL Hct (39.0-53.0) % Plt Count (150-450) k/uL Lymphocytes # (1.0-4.8) k/uL PT (9.0-12.0) sec INR (<1.2) APTT (22.0-30.0) sec Sodium (137-145) mmol/L Glucose (74-99) mg/dL POC Glucose (mg/dL) (70-110) mg/dL Hemoglobin A1c 8.4 H (0.0-6.0) % Plasma Lactic Acid Shaheed 2.1 H* (0.7-2.0) mmol/L Calcium (8.4-10.2) mg/dL Iron (65-175) ug/dL TIBC (228-460) ug/dL % Saturation (15.00-50.00) Transferrin (204.0-354.0) mg/dL Alkaline Phosphatase (38-126) U/L Total Protein (6.3-8.2) g/dL Albumin (3.5-5.0) g/dL Procalcitonin 0.13 H (0.02-0.09) ng/mL 04/05/22 04/05/22 04/05/22 Range/Units 19:42 20:14 23:42 RBC (4.30-5.90) m/uL Hgb (13.0-17.5) gm/dL Hct (39.0-53.0) % Plt Count (150-450) k/uL Lymphocytes # (1.0-4.8) k/uL PT (9.0-12.0) sec INR (<1.2) APTT 156.6 H* (22.0-30.0) sec Sodium (137-145) mmol/L Glucose (74-99) mg/dL POC Glucose (mg/dL) 207 H (70-110) mg/dL Hemoglobin A1c (0.0-6.0) % Plasma Lactic Acid Shaheed 2.1 H* (0.7-2.0) mmol/L Calcium (8.4-10.2) mg/dL Iron (65-175) ug/dL TIBC (228-460) ug/dL % Saturation (15.00-50.00) Transferrin (204.0-354.0) mg/dL Alkaline Phosphatase (38-126) U/L Total Protein (6.3-8.2) g/dL Albumin (3.5-5.0) g/dL Procalcitonin (0.02-0.09) ng/mL 04/06/22 04/06/22 Range/Units 07:05 07:21 RBC (4.30-5.90) m/uL Hgb (13.0-17.5) gm/dL Hct (39.0-53.0) % Plt Count (150-450) k/uL Lymphocytes # (1.0-4.8) k/uL PT (9.0-12.0) sec INR (<1.2) APTT 66.7 H (22.0-30.0) sec Sodium (137-145) mmol/L Glucose (74-99) mg/dL POC Glucose (mg/dL) 51 L (70-110) mg/dL Hemoglobin A1c (0.0-6.0) % Plasma Lactic Acid Shaheed (0.7-2.0) mmol/L Calcium (8.4-10.2) mg/dL Iron (65-175) ug/dL TIBC (228-460) ug/dL % Saturation (15.00-50.00) Transferrin (204.0-354.0) mg/dL Alkaline Phosphatase (38-126) U/L Total Protein (6.3-8.2) g/dL Albumin (3.5-5.0) g/dL Procalcitonin (0.02-0.09) ng/mL Diabetes panel 04/05/22 04/05/22 Range/Units 13:34 16:39 Sodium 135 L (137-145) mmol/L Potassium 4.9 (3.5-5.1) mmol/L Chloride 102 (98-107) mmol/L Carbon Dioxide 26 (22-30) mmol/L BUN 17 (9-20) mg/dL Creatinine 0.69 (0.66-1.25) mg/dL Glucose 193 H (74-99) mg/dL Hemoglobin A1c 8.4 H (0.0-6.0) % Calcium 7.9 L (8.4-10.2) mg/dL AST 34 (17-59) U/L ALT 31 (4-49) U/L Alkaline Phosphatase 143 H (38-126) U/L Total Protein 5.8 L (6.3-8.2) g/dL Albumin 2.9 L (3.5-5.0) g/dL Calcium panel 04/05/22 Range/Units 13:34 Calcium 7.9 L (8.4-10.2) mg/dL Albumin 2.9 L (3.5-5.0) g/dL Pituitary panel 04/05/22 Range/Units 13:34 Sodium 135 L (137-145) mmol/L Potassium 4.9 (3.5-5.1) mmol/L Chloride 102 (98-107) mmol/L Carbon Dioxide 26 (22-30) mmol/L BUN 17 (9-20) mg/dL Creatinine 0.69 (0.66-1.25) mg/dL Glucose 193 H (74-99) mg/dL Calcium 7.9 L (8.4-10.2) mg/dL Adrenal panel 04/05/22 Range/Units 13:34 Sodium 135 L (137-145) mmol/L Potassium 4.9 (3.5-5.1) mmol/L Chloride 102 (98-107) mmol/L Carbon Dioxide 26 (22-30) mmol/L BUN 17 (9-20) mg/dL Creatinine 0.69 (0.66-1.25) mg/dL Glucose 193 H (74-99) mg/dL Calcium 7.9 L (8.4-10.2) mg/dL Total Bilirubin 0.7 (0.2-1.3) mg/dL AST 34 (17-59) U/L ALT 31 (4-49) U/L Alkaline Phosphatase 143 H (38-126) U/L Total Protein 5.8 L (6.3-8.2) g/dL Albumin 2.9 L (3.5-5.0) g/dL - Imaging Comments: See HPI for details Assessment and Plan Assessment: 1. Right upper extremity DVT 2. Recent Fall 3. Atrial fibrillation on Coumadin 4. Supratherapeutic INR 5. Asymptomatic right ICA stenosis, 50-70% per carotid duplex 6. History of hypertension and hyperlipidemia 7. History coronary artery disease status post stent Plan: 1 Consider hematology consultation for further recommendations on anticoagu lation due to patient previously on Coumadin with DVT. 2. Elevate right upper extremity 3. Apply compression to right upper extremity 4. Continue medical management per primary team 5. There is no indication for any vascular surgical intervention at this time Thank you for this consultation, we will continue to follow. The impression and plan of care has been dictated as directed. I performed a history and examination of this patient, discussed the same with the dictator. I agree with the dictator's note ,documented as a scribe. Any additional findings or plans will be noted.
[2022-04-06 10:59] LABS: Basophils # (A) 0.02 X 10*3/uL (0.00-0.10); Basophils % (A) 0.3 %; Eosinophils # (A) 0.03 X 10*3/uL (0.04-0.35); Eosinophils % (A) 0.4 %; HCT 27.2 % (39.6-50.0); HGB 8.7 g/dL (13.0-17.0); Immature Grans, Automated 0.5 %; Lymphocytes # (A) 1.98 X 10*3/uL (0.90-5.00); Lymphocytes % (A) 26.8 %; MCH 25.2 pg (27.0-32.0); MCV 78.8 fL (80.0-97.0); Monocytes # (A) 0.84 X 10*3/uL (0.20-1.00); Monocytes % (A) 11.4 %; NRBC Per 100 WBC 0 /100 WBCS (0.0-0.0); Neutrophils # (A) 4.49 X 10*3/uL (1.80-7.70); Neutrophils % (A) 60.6 %; Platelet Count 437 X 10*3/uL (140-440); RBC 3.45 X 10*6/uL (4.40-5.60); RDW 15.5 % (11.5-14.5)
[2022-04-06] MEDS ORDERED: INSULIN DETEMIR (LEVEMIR) 100 UNIT/ML SYR SQ SCH ×2 (11:30)
[2022-04-06 11:38] VITALS: BMI 25.8
[2022-04-06 11:44] LABS: Glucose,Whole Blood 237 mg/dL (70-110)
--- NOTE | 2022-04-06 12:02 | CA ---
Transthoracic Echo Report Name: Neil Gibson Age: 86 Gender: M : 1935 Exam Date: 04/06/2022 08:16 Exam Location: [facility] Ht (in): 68 Wt (lb): 170 Ordering Physician: Cleopatra Barone DO Attending/Referring Phys: Shoulder Puncher Tia Young RDCS Procedure CPT: Indications: recurrent falls Cardiac Hx: Technical Quality: Fair Contrast 1: Total Dose (mL): Contrast 2: Total Dose (mL): MEASUREMENTS (Male / Female) Normal Values 2D ECHO LV Diastolic Diameter PLAX 4.0 cm 4.2 - 5.9 / 3.9 - 5.3 cm LV Systolic Diameter PLAX 2.6 cm IVS Diastolic Thickness 1.4 cm 0.6 - 1.0 / 0.6 - 0.9 cm LVPW Diastolic Thickness 1.2 cm 0.6 - 1.0 / 0.6 - 0.9 cm LV Relative Wall Thickness 0.7 RV Internal Dim ED PLAX 3.2 cm LA Volume 104.7 cm??? 18 - 58 / 22 - 52 cm??? M-MODE Aortic Root Diameter MM 2.6 cm LA Systolic Diameter MM 4.7 cm LA Ao Ratio MM 1.8 AV Cusp Separation MM 1.7 cm DOPPLER AV Peak Velocity 158.9 cm/s AV Peak Gradient 10.1 mmHg AV Mean Velocity 115.8 cm/s AV Mean Gradient 6.0 mmHg AV Velocity Time Integral 33.5 cm LVOT Peak Velocity 95.8 cm/s LVOT Peak Gradient 3.7 mmHg LVOT Velocity Time Integral 20.4 cm MV Peak Velocity 174.3 cm/s MV Peak Gradient 12.2 mmHg MV Mean Velocity 87.3 cm/s MV Mean Gradient 4.0 mmHg MV Velocity Time Integral 40.9 cm MV Area PHT 3.4 cm??? TR Peak Velocity 314.6 cm/s TR Peak Gradient 39.6 mmHg Right Ventricular Systolic Press 43.8 mmHg FINDINGS Left Ventricle Mildly increased left ventricular wall thickness. Normal left ventricular systolic function with no obvious regional wall motion abnormalities. Left ventricular ejection fraction is estimated at 55-60%. Right Ventricle Normal right ventricular size. Mild pulmonary hypertension. Right Atrium Mild right atrial dilatation. Left Atrium Severely increased left atrial volume. Mitral Valve Moderate mitral annular calcification. Mitral valve thickened. [id number] mitral regurgitation. Aortic Valve No aortic stenosis. No aortic regurgitation. Diffuse thickening (sclerosis) of the aortic valve cusps without reduced excursion. Aortic valve sclerosis. Tricuspid Valve Structurally normal tricuspid valve. Moderate tricuspid regurgitation. Pulmonic Valve Trace pulmonic regurgitation. Pericardium No pericardial effusion. Aorta Normal size aortic root and proximal ascending aorta. CONCLUSIONS Normal left ventricular dimension and systolic function Aortic sclerosis with no stenosis or insufficiency Previewed by: Dr. Salty Grider MD (Electronically Signed) Final Date: 06 April 2022 12:01
--- NOTE | 2022-04-06 13:10 | P.CONS ---
History of Present Illness - Reason for Consult Consult date: 04/06/22 DVT on coumadin - Chief Complaint Arm swelling - History of Present Illness Mr. Gibson is an 86 year old gentleman with a PMHx significant for non-valvular atrial fibrillation on coumadin and digoxin who presents with right arm DVT. Per clinical documentation, Mr. Gibson and traumatic fall onto right arm about 1 week ago. Since then, he's had progressive swelling, circumfrential erythema, and payton n of the right arm. He was taken to the ED for additional management. On presentation, RUE doppler US of the right arm was concerning for right brachial DVT. INR on admission was noted to be supratherapeutic at 4.3. Hgb on today's labs was 8.7 with MCV 78. Vitamin B12, folate, and TSH checked on admission were normal. Iron saturation was low at 4.51% with no ferritin ordered. He was started on heparin drip for anticoagulation and vancomycin for treatment of cellulitis. Hematology was consulted for additional management recommendations. Review of Systems 14 point review of systems was conducted with pertinent positives and negatives as noted per HPI. Past Medical History Past Medical History: Atrial Fibrillation, Dementia, Diabetes Mellitus, Hearing Disorder / Deafness, Hyperlipidemia, Hypertension Additional Past Medical History / Comment(s): neuropathy History of Any Multi-Drug Resistant Organisms: None Reported Past Surgical History: Appendectomy, Heart Catheterization With Stent, Tonsillectomy Past Anesthesia/Blood Transfusion Reactions: No Reported Reaction Date of Last Stent Placement:: 1996 Past Psychological History: No Psychological Hx Reported Smoking Status: Former smoker Past Alcohol Use History: Rare Past Drug Use History: None Reported - Past Family History Mother Family Medical History: Cancer Additional Family Medical History / Comment(s): Father Family Medical History: Congestive Heart Failure (CHF) Additional Family Medical History / Comment(s): 82 years old Medications and Allergies Home Medications Medication Instructions Recorded Confirmed Type Warfarin [Coumadin] 5 mg PO SUTUWETHSA 04/01/18 04/05/22 History metFORMIN HCL [Glucophage] 1,000 mg PO BID 04/01/18 04/05/22 History Atorvastatin [Lipitor] 40 mg PO DAILY 04/05/22 04/05/22 History Digoxin [Digitek] 125 mcg PO DAILY 04/05/22 04/05/22 History Insulin Glargine,Hum.rec.anlog 27 units SQ DAILY@1130 04/05/22 04/05/22 History [Damon Pal] Repaglinide [Prandin] 1 mg PO TID 04/05/22 04/05/22 History Warfarin [Coumadin] 7.5 mg PO MOFR 04/05/22 04/05/22 History lisinopriL [Zestril] 20 mg PO DAILY 04/05/22 04/05/22 History Allergies Allergy/AdvReac Type Severity Reaction Status Date / Time No Known Allergies Allergy Verified 04/05/22 15:37 Physical Exam Vitals: Vital Signs Temp Pulse Pulse Resp BP BP Pulse Ox 04/06/22 09:04 76 18 111/58 98 04/06/22 04:50 98.7 F 78 16 113/58 98 04/06/22 02:00 98.5 F 74 18 108/55 97 04/05/22 22:00 98.8 F 77 18 123/52 97 04/05/22 18:37 98.4 F 80 16 145/65 99 04/05/22 17:24 85 17 128/88 97 04/05/22 16:20 97 17 122/69 97 Intake and Output 04/05/22 04/06/22 04/06/22 22:59 06:59 14:59 Intake Total 123.995 42.824 Output Total 2 Balance 121.995 42.824 Intake: Intake, IV Titration 123.995 42.824 Amount Heparin Sod,Pork in 0.45% 123.995 42.824 NaCl 25,000 unit In 0.45 % NaCl 1 250ml.bag @ 18 UNITS/KG/HR 13.88 mls/hr IV .Q18H1M [facility] Rx#: [id number] Output: Urine 2 Other: Voiding Method Urinal Urinal Weight 77.111 kg 77.111 kg Pleasant, well appearing - Constitutional General appearance: average body habitus, cooperative, no acute distress - EENT Eyes: EOMI - Respiratory Respiratory: bilateral: CTA - Cardiovascular Rhythm: regular Heart sounds: normal: S1, S2 - Gastrointestinal General gastrointestinal: normal bowel sounds, soft, no tenderness - Neurologic Neurologic: CNII-XII intact - Musculoskeletal Swelling of right arm compared to the left with circumfrential erythema extending to the upper right bicep. No tenderness to palpation - Psychiatric Psychiatric: appropriate affect Results CBC & Chem 7: 04/06/22 07:05 04/06/22 07:05 Labs: Abnormal Lab Results - Last 24 Hours (Table) 04/05/22 04/05/22 04/05/22 Range/Units 13:34 13:34 13:34 RBC 4.12 L (4.30-5.90) m/uL Hgb 10.9 L (13.0-17.5) gm/dL Hct 33.8 L (39.0-53.0) % MCV (80.0-97.0) fL MCH (27.0-32.0) pg RDW (11.5-14.5) % Plt Count (150-450) k/uL MPV (9.5-12.2) fL Lymphocytes # 0.8 L (1.0-4.8) k/uL Eosinophils # (0.04-0.35) X 10*3/uL PT (9.0-12.0) sec INR (<1.2) APTT (22.0-30.0) sec Sodium 135 L (137-145) mmol/L Creatinine (0.66-1.25) mg/dL Glucose 193 H (74-99) mg/dL POC Glucose (mg/dL) (70-110) mg/dL Hemoglobin A1c (0.0-6.0) % Plasma Lactic Acid Shaheed 2.8 H* (0.7-2.0) mmol/L Calcium 7.9 L (8.4-10.2) mg/dL Iron (65-175) ug/dL TIBC (228-460) ug/dL % Saturation (15.00-50.00) Transferrin (204.0-354.0) mg/dL Alkaline Phosphatase 143 H (38-126) U/L Total Protein 5.8 L (6.3-8.2) g/dL Albumin 2.9 L (3.5-5.0) g/dL Procalcitonin (0.02-0.09) ng/mL 04/05/22 04/05/22 04/05/22 Range/Units 16:15 16:15 16:15 RBC (4.30-5.90) m/uL Hgb 11.5 L (13.0-17.5) gm/dL Hct 35.8 L (39.0-53.0) % MCV (80.0-97.0) fL MCH (27.0-32.0) pg RDW (11.5-14.5) % Plt Count 484 H (150-450) k/uL MPV (9.5-12.2) fL Lymphocytes # (1.0-4.8) k/uL Eosinophils # (0.04-0.35) X 10*3/uL PT 43.3 H (9.0-12.0) sec INR 4.3 H (<1.2) APTT 47.2 H (22.0-30.0) sec Sodium (137-145) mmol/L Creatinine (0.66-1.25) mg/dL Glucose (74-99) mg/dL POC Glucose (mg/dL) (70-110) mg/dL Hemoglobin A1c (0.0-6.0) % Plasma Lactic Acid Shaheed (0.7-2.0) mmol/L Calcium (8.4-10.2) mg/dL Iron 10 L (65-175) ug/dL TIBC 220 L (228-460) ug/dL % Saturation 4.51 L (15.00-50.00) Transferrin 157.0 L (204.0-354.0) mg/dL Alkaline Phosphatase (38-126) U/L Total Protein (6.3-8.2) g/dL Albumin (3.5-5.0) g/dL Procalcitonin (0.02-0.09) ng/mL 04/05/22 04/05/22 04/05/22 Range/Units 16:15 16:39 16:39 RBC (4.30-5.90) m/uL Hgb (13.0-17.5) gm/dL Hct (39.0-53.0) % MCV (80.0-97.0) fL MCH (27.0-32.0) pg RDW (11.5-14.5) % Plt Count (150-450) k/uL MPV (9.5-12.2) fL Lymphocytes # (1.0-4.8) k/uL Eosinophils # (0.04-0.35) X 10*3/uL PT (9.0-12.0) sec INR (<1.2) APTT (22.0-30.0) sec Sodium (137-145) mmol/L Creatinine (0.66-1.25) mg/dL Glucose (74-99) mg/dL POC Glucose (mg/dL) (70-110) mg/dL Hemoglobin A1c 8.4 H (0.0-6.0) % Plasma Lactic Acid Shaheed 2.1 H* (0.7-2.0) mmol/L Calcium (8.4-10.2) mg/dL Iron (65-175) ug/dL TIBC (228-460) ug/dL % Saturation (15.00-50.00) Transferrin (204.0-354.0) mg/dL Alkaline Phosphatase (38-126) U/L Total Protein (6.3-8.2) g/dL Albumin (3.5-5.0) g/dL Procalcitonin 0.13 H (0.02-0.09) ng/mL 04/05/22 04/05/22 04/05/22 Range/Units 19:42 20:14 23:42 RBC (4.30-5.90) m/uL Hgb (13.0-17.5) gm/dL Hct (39.0-53.0) % MCV (80.0-97.0) fL MCH (27.0-32.0) pg RDW (11.5-14.5) % Plt Count (150-450) k/uL MPV (9.5-12.2) fL Lymphocytes # (1.0-4.8) k/uL Eosinophils # (0.04-0.35) X 10*3/uL PT (9.0-12.0) sec INR (<1.2) APTT 156.6 H* (22.0-30.0) sec Sodium (137-145) mmol/L Creatinine (0.66-1.25) mg/dL Glucose (74-99) mg/dL POC Glucose (mg/dL) 207 H (70-110) mg/dL Hemoglobin A1c (0.0-6.0) % Plasma Lactic Acid Shaheed 2.1 H* (0.7-2.0) mmol/L Calcium (8.4-10.2) mg/dL Iron (65-175) ug/dL TIBC (228-460) ug/dL % Saturation (15.00-50.00) Transferrin (204.0-354.0) mg/dL Alkaline Phosphatase (38-126) U/L Total Protein (6.3-8.2) g/dL Albumin (3.5-5.0) g/dL Procalcitonin (0.02-0.09) ng/mL 04/06/22 04/06/22 04/06/22 Range/Units 07:05 07:05 07:05 RBC 3.45 L (4.30-5.90) m/uL Hgb 8.7 L (13.0-17.5) gm/dL Hct 27.2 L (39.0-53.0) % MCV 78.8 L (80.0-97.0) fL MCH 25.2 L (27.0-32.0) pg RDW 15.5 H (11.5-14.5) % Plt Count (150-450) k/uL MPV 9.0 L (9.5-12.2) fL Lymphocytes # (1.0-4.8) k/uL Eosinophils # 0.03 L (0.04-0.35) X 10*3/uL PT (9.0-12.0) sec INR (<1.2) APTT 66.7 H (22.0-30.0) sec Sodium 133 L (137-145) mmol/L Creatinine 0.64 L (0.66-1.25) mg/dL Glucose 44 L* (74-99) mg/dL POC Glucose (mg/dL) (70-110) mg/dL Hemoglobin A1c (0.0-6.0) % Plasma Lactic Acid Shaheed (0.7-2.0) mmol/L Calcium 7.6 L (8.4-10.2) mg/dL Iron (65-175) ug/dL TIBC (228-460) ug/dL % Saturation (15.00-50.00) Transferrin (204.0-354.0) mg/dL Alkaline Phosphatase (38-126) U/L Total Protein 5.2 L (6.3-8.2) g/dL Albumin 2.4 L (3.5-5.0) g/dL Procalcitonin (0.02-0.09) ng/mL 04/06/22 04/06/22 Range/Units 07:21 11:41 RBC (4.30-5.90) m/uL Hgb (13.0-17.5) gm/dL Hct (39.0-53.0) % MCV (80.0-97.0) fL MCH (27.0-32.0) pg RDW (11.5-14.5) % Plt Count (150-450) k/uL MPV (9.5-12.2) fL Lymphocytes # (1.0-4.8) k/uL Eosinophils # (0.04-0.35) X 10*3/uL PT (9.0-12.0) sec INR (<1.2) APTT (22.0-30.0) sec Sodium (137-145) mmol/L Creatinine (0.66-1.25) mg/dL Glucose (74-99) mg/dL POC Glucose (mg/dL) 51 L 237 H (70-110) mg/dL Hemoglobin A1c (0.0-6.0) % Plasma Lactic Acid Shaheed (0.7-2.0) mmol/L Calcium (8.4-10.2) mg/dL Iron (65-175) ug/dL TIBC (228-460) ug/dL % Saturation (15.00-50.00) Transferrin (204.0-354.0) mg/dL Alkaline Phosphatase (38-126) U/L Total Protein (6.3-8.2) g/dL Albumin (3.5-5.0) g/dL Procalcitonin (0.02-0.09) ng/mL Assessment and Plan Assessment: Mr. Gibson is an 86 year old gentleman with a PMHx of atrial fibrillation on coumadin and digoxin with recent trauma to the right arm following fall complicated by right brachial DVT and cellulitis. (1) Microcytic anemia Current Visit: Yes Status: Acute Code(s): D50.9 - IRON DEFICIENCY ANEMIA, UNSPECIFIED SNOMED Code(s): 586425445 (2) Deep vein thrombosis of right upper extremity Current Visit: Yes Status: Acute Code(s): I82.621 - ACUTE EMBOLISM AND THROMBOSIS OF DEEP VEINS OF R UP EXTREM SNOMED Code(s): 277108433 Plan: # Right brachial DVT -Appears to be provoked secondary to traumatic fall on right arm -He was noted to have supratherapeutic INR 4.3 on initial presentation -While this doesn't represent a failure of anticoagulation given the provoked nature, coumadin management can be difficult in an elderly individual -Given he has non-valvular atrial fibrillation, he would be a candidate for DOAC such as eliquis -Continue heparin drip while undergoing treatment for cellulitis -As right arm swelling improves, he can be transitioned to eliquis 5 mg BID from heparin drip prior to discharge # Microcytic anemia -Hgb 8.7 today with MCV 78 -Vitamin B12, folic acid, and TSH on admission were all WNL -Iron saturation was low at 4.51% -This is suspicious for iron deficiency anemia. Anemia of inflammation is also possible given cellulitis -Add on ferritin to labs from 04/05/22 -If ferritin is low, oral iron with ferrous sulfate 325 mg daily can be started while being treated for cellulitis with IV antibiotics -We can follow up outpatient for assessment of further IV iron if needed
--- NOTE | 2022-04-06 15:22 | P.PN ---
Subjective Progress Note Date: 04/06/22 (delayed charting seen at 0830) Patient is an 86-year-old male with atrial fibrillation anticoagulated with Coumadin, dementia, and diabetes mellitus who presented with complaints of right upper extremity swelling and pain. In the ER he underwent an extensive evaluation. Initial vital signs within normal limits. Ultrasound was performed of the right upper extremity which showed a DVT. Laboratory analysis was remarkable for hemoglobin of 10.9, lactic acid 2.8, and INR 4.31. Humeral x-ray showed soft tissue swelling of the lower humerus with no fracture. 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 Right internal carotid artery velocities suggestive 50-70% stenosis with a 50% stenosis of the left internal carotid artery. Echocardiogram demonstrated ejec tion fraction 55-60%. He was seen by vascular surgery who recommended hematology evaluation and no indication for vascular surgery intervention. He continued to have some fasting a.m. blood sugars in the 40s. Insulin regimen was adjusted. Hematology oncology were consulted. They felt as though his DVT was provoked. They did recommend Eliquis on discharge. Patient seen and examined at bedside. He reports the pain in his arm is improving. He reports that he does have low blood sugars less than 61-2 times weekly at home. He states he goes through phases where his blood sugars are good and then where they are low again. We discussed that we likely should decrease his Levemir dosing to avoid hypoglycemia given his presyncopal events recently. General: nontoxic, no distress, appears at stated age Derm: warm, dry Head: atraumatic, normocephalic, symmetric Eyes: EOMI, no lid lag, anicteric sclera Mouth: no lip lesion, mucus membranes moist, hard of hearing Cardiovascular: S1S2 reg, no murmur, positive posterior tibial pulse bilateral, Lungs: CTA bilateral, no rhonchi, no rales , no accessory muscle use Abdominal: soft, nontender to palpation, no guarding, no appreciable orga nomegaly Ext: no gross muscle atrophy, Right arm with significant swelling from shoulder through distal fingertips, erythematous area over the right antecubital, no open skin tearing noted, no drainage. Neuro: CN II-XI grossly intact, no focal neuro deficits Psych: Alert, oriented, appropriate affect Assessment/plan: Right brachial DVT, provoked, obtained with supratherapeutic Coumadin 4.3. -Hematology/oncology recommendations appreciated: Will continue with heparin drip and once edema is improved transition to eliquis -Status post surgery recommendations appreciated. We'll continue with Tay wrap. Right upper extremity cellulitis -Continue with vancomycin -Continue to monitor closely Diabetes mellitus type 2, insulin-dependent, with episodes of hypoglycemia -Decrease long-acting insulin to 10 units twice daily -Continue sliding scale insulin -Follow blood sugars closely -Hemoglobin A1c 8.4 Recurrent falls Presyncope -Patient denies any syncopal episodes -PT/OT evaluation has occurred only do recommend rehab therapy -Carotid Dopplers to show 50-70% stenosis on the right, 50% stenosis on the left Carotid stenosis -Outpatient vascular follow-up Anemia, likely iron deficiency -Hematology/oncology recommendations appreciated -Await ferritin Paroxysmal atrial fibrillation -Continue with metoprolol, digoxin -Follow heart rate DVT prophylaxis: on heparin gtt Discussed with: pateint and nursing Anticipated discharge: in 1-[address]: home A total of 45 minutes was spent on the care of this complex patient more than 50% of the time was spent in counseling and care coordination. Objective - Vital Signs Vital signs: Vital Signs Temp 98 F 04/06/22 11:35 Pulse 61 04/06/22 11:35 Resp 18 04/06/22 11:35 BP 124/57 04/06/22 11:35 Pulse Ox 98 04/06/22 11:35 FiO2 Intake & Output 04/05/22 04/06/22 04/06/22 18:59 06:59 18:59 Intake Total 123.995 42.824 Output Total 2 Balance 121.995 42.824 Weight 77.111 kg 77.111 kg Intake: Intake, IV Titration 123.995 42.824 Amount Heparin Sod,Pork in 0.45% 123.995 42.824 NaCl 25,000 unit In 0.45 % NaCl 1 250ml.bag @ 18 UNITS/KG/HR 13.88 mls/hr IV .Q18H1M [facility] Rx#: [id number] Output: Urine 2 Other: Voiding Method Urinal Urinal - Labs CBC & Chem 7: 04/06/22 07:05 04/06/22 07:05 Labs: Abnormal Lab Results - Last 24 Hours (Table) 04/05/22 04/05/22 04/05/22 Range/Units 16:15 16:15 16:15 RBC (4.40-5.60) X 10*6/uL Hgb 11.5 L (13.0-17.5) gm/dL Hct 35.8 L (39.0-53.0) % MCV (80.0-97.0) fL MCH (27.0-32.0) pg RDW (11.5-14.5) % Plt Count 484 H (150-450) k/uL MPV (9.5-12.2) fL Eosinophils # (0.04-0.35) X 10*3/uL PT 43.3 H (9.0-12.0) sec INR 4.3 H (<1.2) APTT 47.2 H (22.0-30.0) sec Sodium (137-145) mmol/L Creatinine (0.66-1.25) mg/dL Glucose (74-99) mg/dL POC Glucose (mg/dL) (70-110) mg/dL Hemoglobin A1c (0.0-6.0) % Plasma Lactic Acid Shaheed (0.7-2.0) mmol/L Calcium (8.4-10.2) mg/dL Iron 10 L (65-175) ug/dL TIBC 220 L (228-460) ug/dL % Saturation 4.51 L (15.00-50.00) Transferrin 157.0 L (204.0-354.0) mg/dL Total Protein (6.3-8.2) g/dL Albumin (3.5-5.0) g/dL Procalcitonin (0.02-0.09) ng/mL 04/05/22 04/05/22 04/05/22 Range/Units 16:15 16:39 16:39 RBC (4.40-5.60) X 10*6/uL Hgb (13.0-17.5) gm/dL Hct (39.0-53.0) % MCV (80.0-97.0) fL MCH (27.0-32.0) pg RDW (11.5-14.5) % Plt Count (150-450) k/uL MPV (9.5-12.2) fL Eosinophils # (0.04-0.35) X 10*3/uL PT (9.0-12.0) sec INR (<1.2) APTT (22.0-30.0) sec Sodium (137-145) mmol/L Creatinine (0.66-1.25) mg/dL Glucose (74-99) mg/dL POC Glucose (mg/dL) (70-110) mg/dL Hemoglobin A1c 8.4 H (0.0-6.0) % Plasma Lactic Acid Shaheed 2.1 H* (0.7-2.0) mmol/L Calcium (8.4-10.2) mg/dL Iron (65-175) ug/dL TIBC (228-460) ug/dL % Saturation (15.00-50.00) Transferrin (204.0-354.0) mg/dL Total Protein (6.3-8.2) g/dL Albumin (3.5-5.0) g/dL Procalcitonin 0.13 H (0.02-0.09) ng/mL 04/05/22 04/05/22 04/05/22 Range/Units 19:42 20:14 23:42 RBC (4.40-5.60) X 10*6/uL Hgb (13.0-17.5) gm/dL Hct (39.0-53.0) % MCV (80.0-97.0) fL MCH (27.0-32.0) pg RDW (11.5-14.5) % Plt Count (150-450) k/uL MPV (9.5-12.2) fL Eosinophils # (0.04-0.35) X 10*3/uL PT (9.0-12.0) sec INR (<1.2) APTT 156.6 H* (22.0-30.0) sec Sodium (137-145) mmol/L Creatinine (0.66-1.25) mg/dL Glucose (74-99) mg/dL POC Glucose (mg/dL) 207 H (70-110) mg/dL Hemoglobin A1c (0.0-6.0) % Plasma Lactic Acid Shaheed 2.1 H* (0.7-2.0) mmol/L Calcium (8.4-10.2) mg/dL Iron (65-175) ug/dL TIBC (228-460) ug/dL % Saturation (15.00-50.00) Transferrin (204.0-354.0) mg/dL Total Protein (6.3-8.2) g/dL Albumin (3.5-5.0) g/dL Procalcitonin (0.02-0.09) ng/mL 04/06/22 04/06/22 04/06/22 Range/Units 07:05 07:05 07:05 RBC 3.45 L (4.40-5.60) X 10*6/uL Hgb 8.7 L (13.0-17.5) gm/dL Hct 27.2 L (39.0-53.0) % MCV 78.8 L (80.0-97.0) fL MCH 25.2 L (27.0-32.0) pg RDW 15.5 H (11.5-14.5) % Plt Count (150-450) k/uL MPV 9.0 L (9.5-12.2) fL Eosinophils # 0.03 L (0.04-0.35) X 10*3/uL PT (9.0-12.0) sec INR (<1.2) APTT 66.7 H (22.0-30.0) sec Sodium 133 L (137-145) mmol/L Creatinine 0.64 L (0.66-1.25) mg/dL Glucose 44 L* (74-99) mg/dL POC Glucose (mg/dL) (70-110) mg/dL Hemoglobin A1c (0.0-6.0) % Plasma Lactic Acid Shaheed (0.7-2.0) mmol/L Calcium 7.6 L (8.4-10.2) mg/dL Iron (65-175) ug/dL TIBC (228-460) ug/dL % Saturation (15.00-50.00) Transferrin (204.0-354.0) mg/dL Total Protein 5.2 L (6.3-8.2) g/dL Albumin 2.4 L (3.5-5.0) g/dL Procalcitonin (0.02-0.09) ng/mL 04/06/22 04/06/22 04/06/22 Range/Units 07:21 11:41 14:15 RBC (4.40-5.60) X 10*6/uL Hgb (13.0-17.5) gm/dL Hct (39.0-53.0) % MCV (80.0-97.0) fL MCH (27.0-32.0) pg RDW (11.5-14.5) % Plt Count (150-450) k/uL MPV (9.5-12.2) fL Eosinophils # (0.04-0.35) X 10*3/uL PT (9.0-12.0) sec INR (<1.2) APTT 62.7 H (22.0-30.0) sec Sodium (137-145) mmol/L Creatinine (0.66-1.25) mg/dL Glucose (74-99) mg/dL POC Glucose (mg/dL) 51 L 237 H (70-110) mg/dL Hemoglobin A1c (0.0-6.0) % Plasma Lactic Acid Shaheed (0.7-2.0) mmol/L Calcium (8.4-10.2) mg/dL Iron (65-175) ug/dL TIBC (228-460) ug/dL % Saturation (15.00-50.00) Transferrin (204.0-354.0) mg/dL Total Protein (6.3-8.2) g/dL Albumin (3.5-5.0) g/dL Procalcitonin (0.02-0.09) ng/mL
[2022-04-06] MEDS: HEPARIN SOD,PORK IN 0.45% NACL 25,000 UNIT in 0.45% NACL 1 250ML.BAG IV SCH (15:28)
[2022-04-06 17:09] LABS: Glucose,Whole Blood 321 mg/dL (70-110)
[2022-04-06 21:08] LABS: Glucose,Whole Blood 115 mg/dL (70-110)
[2022-04-07] MEDS: VANCOMYCIN 1,500 MG in SODIUM CHLORIDE 0.9% 500 ML 500 ML IVPB SCH (06:42)
[2022-04-07 07:05] LABS: Glucose,Whole Blood 55 mg/dL (70-110)
[2022-04-07 07:28] LABS: Glucose,Whole Blood 86 mg/dL (70-110)
[2022-04-07 07:45] LABS: HCT 31.9 % (39.0-53.0); Hypochromasia Marked; MCH 25.4 pg (25.0-35.0); MCHC 30.4 g/dL (31.0-37.0); MCV 83.6 fL (80.0-100.0); Mean Platelet Volume 7.6; Platelet Count 456 k/uL (150-450); RBC 3.81 m/uL (4.30-5.90); RDW 14.7 % (11.5-15.5); WBC 8.2 k/uL (3.8-10.6)
[2022-04-07 07:47] LABS: HGB 9.7 gm/dL (13.0-17.5)
[2022-04-07 07:48] LABS: African American GFR (CKD) >90 (>60 ml/min/1.73 sqM); Anion Gap 4 mmol/L; Blood Urea Nitrogen 15 mg/dL (9-20); Calcium 7.4 mg/dL (8.4-10.2); Carbon Dioxide 24 mmol/L (22-30); Chloride 109 mmol/L (98-107); Glucose 51 mg/dL (74-99); Non-African American GFR(CKD) 86 (>60 ml/min/1.73 sqM); Potassium 4.2 mmol/L (3.5-5.1); Sodium 137 mmol/L (137-145)
[2022-04-07] MEDS: INSULIN ASPART (NovoLOG) 100 UNIT/ML VIAL SQ SCH ×3 (07:54→17:46)
[2022-04-07] MEDS: DIGOXIN 125 MCG TAB PO SCH (08:08)
[2022-04-07] MEDS: PANTOPRAZOLE 40 MG TABLET PO SCH (08:09)
[2022-04-07] MEDS: ATORVASTATIN 40 MG TAB PO SCH (08:09)
[2022-04-07] MEDS: METOPROLOL SUCCINATE (ER) 25 MG TAB.ER.24H PO SCH (08:09)
[2022-04-07] MEDS: CALCIUM CARB-VIT D 500 MG-5 MCG TAB PO SCH ×2 (08:09→17:46)
[2022-04-07] MEDS: LINAGLIPTIN 5 MG TABLET PO SCH (09:30)
[2022-04-07 11:10] LABS: Glucose,Whole Blood 251 mg/dL (70-110)
[2022-04-07] MEDS: HEPARIN SOD,PORK IN 0.45% NACL 25,000 UNIT in 0.45% NACL 1 250ML.BAG IV SCH (11:19)
--- NOTE | 2022-04-07 11:40 | P.DS ---
Providers Date of admission: 04/05/22 15:23 Expected date of discharge: 04/07/22 Attending physician: Leslie Brand MD Consults: 04/05/22 15:21 Consult Physician Urgent Consulting Provider: Daria Quinonez Consult Reason/Comments: DVT Do you want consulting provider notified?: Yes 04/06/22 09:16 Consult Physician Routine Consulting Provider: Tulio Lawrence Consult Reason/Comments: DVT on coumadin Do you want consulting provider notified?: Yes Primary care physician: Stated None Hospital Course: Discharge Diagnosis: Right brachial DVT, provoked, obtained with supratherapeutic Coumadin 4.3. Right upper extremity cellulitis Diabetes mellitus type 2, insulin-dependent, with episodes of hypoglycemia Recurrent falls Presyncope Carotid stenosis Anemia, likely iron deficiency Paroxysmal atrial fibrillation Hospital Course: Patient is an 86-year-old male with atrial fibrillation anticoagulated with Coumadin, dementia, and diabetes mellitus who presented with complaints of right upper extremity swelling and pain. In the ER he underwent an extensive evaluation. Initial vital signs within normal limits. Ultrasound was performed of the right upper extremity which showed a DVT. Laboratory analysis was remarkable for hemoglobin of 10.9, lactic acid 2.8, and INR 4.31. Humeral x- ray showed soft tissue swelling of the lower humerus with no fracture. 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 Right internal carotid artery velocities suggestive 50-70% stenosis with a 50% stenosis of the left internal carotid artery. Echocardiogram demonstrated ejection fraction 55- 60%. He was seen by vascular surgery who recommended hematology evaluation and no indication for vascular surgery intervention. He continued to have some fasting a.m. blood sugars in the 40s. Insulin regimen was adjusted and then discontinued, it was replaced with januvia to avoid hypoglycemia. . Hematology oncology were consulted. They felt as though his DVT was provoked. They did recommend Eliquis on discharge. His edema and redness improved. He was determined stabl for discharge. Follow-up: Eliquis 10 mg twice daily 7 days then Eliquis quit [address] George in 1 week Bactrim 5 days Check blood sugar 3 times daily Fall precautions CBC in 1 week diagnosis anemia Keep right arm and Tay wrap while awake to decrease swelling Patient seen and examined at bedside. Pain in arm as much better. Able to move are better. Denies any lightheadedness, chest pain, shortness of breath. Vital signs reviewed and stable. General: nontoxic, no distress, appears at stated age Derm: warm, dry, mild erythema inside of right elbow with 3+ edema of right arm Head: atraumatic, normocephalic, symmetric Eyes: EOMI, no lid lag, anicteric sclera Mouth: no lip lesion, mucus membranes moist Cardiovascular: S1S2 irreg, no murmur, positive posterior tibial pulse bilateral, Lungs: CTA bilateral, no rhonchi, no rales , no accessory muscle use Abdominal: soft, nontender to palpation, no guarding, no appreciable organomegaly Ext: no gross muscle atrophy, + edema right arm, no contractures Neuro: CN II-XI grossly intact, no focal neuro deficits Psych: Alert, oriented, appropriate affect A total of 35 minutes of time were spent preparing this complex discharge summary. Patient was discharged on 04/07/22 . Patient Condition at Discharge: Stable Plan - Discharge Summary Discharge Rx Participant: Yes New Discharge Prescriptions: New sitaGLIPtin [Januvia] 100 mg PO DAILY #30 tab INSULIN ASPART (NovoLOG) [NovoLOG (formulary)] 0 unit SQ AC-TID each Pantoprazole [Protonix] 40 mg PO AC-BRKFST tab Sulfamethox-Tmp 800-160Mg [Bactrim DS 800-160 mg] 1 each PO BID 5 Days tab Apixaban [Eliquis] 10 mg PO BID #0 tab Ferrous Sulfate [Feosol] 325 mg PO DAILY #30 tab Metoprolol Succinate (ER) [Toprol XL] 25 mg PO DAILY tab Continue metFORMIN HCL [Glucophage] 1,000 mg PO BID Atorvastatin [Lipitor] 40 mg PO DAILY Digoxin [Digitek] 125 mcg PO DAILY Discontinued Warfarin [Coumadin] 5 mg PO SUTUWETHSA lisinopriL [Zestril] 20 mg PO DAILY Warfarin [Coumadin] 7.5 mg PO MOFR Repaglinide [Prandin] 1 mg PO TID Insulin Glargine,Hum.rec.anlog [Damon Pal] 27 units SQ DAILY@1130 Discharge Medication List metFORMIN HCL [Glucophage] 1,000 mg PO BID 04/01/18 [History] Atorvastatin [Lipitor] 40 mg PO DAILY 04/05/22 [History] Digoxin [Digitek] 125 mcg PO DAILY 04/05/22 [History] Apixaban [Eliquis] 10 mg PO BID #0 tab 04/07/22 [Rx] Ferrous Sulfate [Feosol] 325 mg PO DAILY #30 tab 04/07/22 [Rx] INSULIN ASPART (NovoLOG) [NovoLOG (formulary)] 0 unit SQ AC-TID each 04/07/22 [Rx] Metoprolol Succinate (ER) [Toprol XL] 25 mg PO DAILY tab 04/07/22 [Rx] Pantoprazole [Protonix] 40 mg PO AC-BRKFST tab 04/07/22 [Rx] Sulfamethox-Tmp 800-160Mg [Bactrim DS 800-160 mg] 1 each PO BID 5 Days tab 04/07/22 [Rx] sitaGLIPtin [Januvia] 100 mg PO DAILY #30 tab 04/07/22 [Rx] Follow up Appointment(s)/Referral(s): Tanesha George MD [STAFF PHYSICIAN] - 1 Week None,Stated [Primary Care Provider] - 1-2 days Activity/Diet/Wound Care/Special Instructions: Activity: As tolerated Diet: Heart healthy Special Instructions Check blood sugar 3 times daily Eliquis 10 mg twice daily 7 days then Eliquis quit 5 mg twice daily Bactrim 5 additional days CBC in 1 week diagnosis anemia Keep right arm and Tay wrap while awake to decrease swelling Fall Precautions Discharge Disposition: TRANSFER TO SNF/ECF
[2022-04-07] MEDS: SULFAMETHOX-TMP 800-160MG 1 EACH TAB PO SCH ×2 (13:09→20:09)
[2022-04-07] MEDS: APIXABAN 5 MG TAB PO SCH ×2 (13:09→20:09)
[2022-04-07] MEDS ORDERED: VANCOMYCIN TROUGH DUE 1 EACH MISC MISCELLANE ONE (17:00)
[2022-04-07 17:21] LABS: Glucose,Whole Blood 321 mg/dL (70-110)
[2022-04-07 20:30] LABS: Glucose,Whole Blood 265 mg/dL (70-110)
[2022-04-08 07:18] LABS: Glucose,Whole Blood 234 mg/dL (70-110)
[2022-04-08] MEDS: SULFAMETHOX-TMP 800-160MG 1 EACH TAB PO SCH ×2 (08:23→22:41)
[2022-04-08] MEDS: INSULIN ASPART (NovoLOG) 100 UNIT/ML VIAL SQ SCH ×3 (08:23→17:57)
[2022-04-08] MEDS: ATORVASTATIN 40 MG TAB PO SCH (08:23)
[2022-04-08] MEDS: METOPROLOL SUCCINATE (ER) 25 MG TAB.ER.24H PO SCH (08:23)
[2022-04-08] MEDS: PANTOPRAZOLE 40 MG TABLET PO SCH (08:23)
[2022-04-08] MEDS: DIGOXIN 125 MCG TAB PO SCH (08:23)
[2022-04-08] MEDS: APIXABAN 5 MG TAB PO SCH ×2 (08:23→22:40)
[2022-04-08] MEDS: CALCIUM CARB-VIT D 500 MG-5 MCG TAB PO SCH ×2 (08:23→17:56)
[2022-04-08] MEDS: LINAGLIPTIN 5 MG TABLET PO SCH (08:23)
[2022-04-08] MEDS: INSULIN DETEMIR (LEVEMIR) 100 UNIT/ML SYR SQ SCH (08:24)
[2022-04-08 11:11] LABS: Glucose,Whole Blood 270 mg/dL (70-110)
--- NOTE | 2022-04-08 13:40 | P.PN ---
Subjective Progress Note Date: 04/08/22 Patient is an 86-year-old male with atrial fibrillation anticoagulated with Coumadin, dementia, and diabetes mellitus who presented with complaints of right upper extremity swelling and pain. In the ER he underwent an extensive evaluation. Initial vital signs within normal limits. Ultrasound was performed of the right upper extremity which showed a DVT. Laboratory analysis was remarkable for hemoglobin of 10.9, lactic acid 2.8, and INR 4.31. Humeral x- ray showed soft tissue swelling of the lower humerus with no fracture. 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 Right internal carotid artery velocities suggestive 50-70% stenosis with a 50% stenosis of the left internal carotid artery. Echocardiogram demonstrated ejection fraction 55- 60%. He was seen by vascular surgery who recommended hematology evaluation and no indication for vascular surgery intervention. He continued to have some fasting a.m. blood sugars in the 40s. Insulin regimen was adjusted and then discontinued, it was replaced with januvia to avoid hypoglycemia. . Hematology oncology were consulted. They felt as though his DVT was provoked. They did recommend Eliquis on discharge. His edema and redness improved he was transitioned to eliquis and bactrim. Currently awaiting SNF placement. Patient seen and examined at bedside. He denies any chest discomfort at this time. Denies any shortness of breath. States his arm is getting better. Swelling getting better. He had a bowel movement yesterday. Feels as though his strength is improving. General: nontoxic, no distress, appears at stated age Derm: warm, dry, mild erythema inside of right elbow with 3+ edema of right arm Head: atraumatic, normocephalic, symmetric, hard of hearing Eyes: EOMI, no lid lag, anicteric sclera Mouth: no lip lesion, mucus membranes moist Cardiovascular: S1S2 reg, no murmur, positive posterior tibial pulse bilateral, Lungs: CTA bilateral, no rhonchi, no rales , no accessory muscle use Abdominal: soft, nontender to palpation, no guarding, no appreciable organomegaly Ext: no gross muscle atrophy, no edema, no contractures Neuro: CN II-XI grossly intact, no focal neuro deficits Psych: Alert, oriented, appropriate affect Assessment/plan: Right brachial DVT, provoked, obtained with supratherapeutic Coumadin 4.3. - eliquis - follow-up heme/onc after discharge Right upper extremity cellulitis - off vanco - complete therapy wi rodricknidhi Diabetes mellitus type 2, insulin-dependent, with episodes of hypoglycemia - hyperglycemia this AM after multiple days of a.m. hypoglycemia -Levemir 5 units, sliding scale insulin, tripped on 10 -Plan to discharge on metformin and Januvia. Could consider Levemir as an alternative. -Follow blood sugars-A1c is 8.4. Patient does not need a tight glycemic control secondary to his advanced age. He would likely suffer more dire consequences from hypoglycemia and falls then from relative hyperglycemia. Recurrent falls Presyncope -Patient denies any syncopal episodes -PT/OT evaluation recommend rehab therapy -Carotid Dopplers to show 50-70% stenosis on the right, 50% stenosis on the left Carotid stenosis -Outpatient vascular follow-up Anemia, likely iron deficiency -Hematology/oncology recommendations appreciated - oral iron Paroxysmal atrial fibrillation -Continue with metoprolol, digoxin -Follow heart rate Awaiting bed a SNF, anticipate discharged on 04/10 Objective - Vital Signs Vital signs: Vital Signs Temp 98.5 F 04/08/22 11:34 Pulse 67 04/08/22 11:34 Resp 16 04/08/22 11:34 BP 128/57 04/08/22 11:34 Pulse Ox 98 04/08/22 11:34 FiO2 Intake & Output 04/07/22 04/08/22 04/08/22 18:59 06:59 18:59 Intake Total 597 Output Total 200 700 Balance 397 -700 Intake: Oral 597 Output: Urine 200 700 Other: # Voids 1 1 # Bowel Movements 1 - Labs CBC & Chem 7: 04/07/22 07:02 04/07/22 07:06 Labs: Abnormal Lab Results - Last 24 Hours (Table) 04/07/22 04/07/22 04/08/22 Range/Units 17:16 20:29 07:04 APTT 48.2 H (22.0-30.0) sec POC Glucose (mg/dL) 321 H 265 H (70-110) mg/dL 04/08/22 04/08/22 Range/Units 07:17 11:09 APTT (22.0-30.0) sec POC Glucose (mg/dL) 234 H 270 H (70-110) mg/dL Microbiology - Last 24 Hours (Table) 04/05/22 13:34 Blood Culture - Preliminary Blood No Growth after 48 hours 04/05/22 13:34 Blood Culture - Preliminary Blood No Growth after 48 hours
[2022-04-08 17:19] LABS: Glucose,Whole Blood 312 mg/dL (70-110)
[2022-04-08 20:17] LABS: Glucose,Whole Blood 199 mg/dL (70-110)
--- NOTE | 2022-04-08 22:18 | P.EN ---
nose bleed episode, controlled. patient continues to be on Eliquis for brachial vein DVT continue eliquis continue to monitor and re evaluate in AM
[2022-04-09 05:09] LABS: Glucose,Whole Blood 162 mg/dL (70-110)
[2022-04-09 07:15] LABS: Glucose,Whole Blood 250 mg/dL (70-110)
[2022-04-09] MEDS: APIXABAN 5 MG TAB PO SCH ×2 (08:26→20:37)
[2022-04-09] MEDS: METOPROLOL SUCCINATE (ER) 25 MG TAB.ER.24H PO SCH (08:26)
[2022-04-09] MEDS: DIGOXIN 125 MCG TAB PO SCH (08:27)
[2022-04-09] MEDS: CALCIUM CARB-VIT D 500 MG-5 MCG TAB PO SCH ×2 (08:27→17:43)
[2022-04-09] MEDS: PANTOPRAZOLE 40 MG TABLET PO SCH (08:27)
[2022-04-09] MEDS: INSULIN ASPART (NovoLOG) 100 UNIT/ML VIAL SQ SCH ×3 (08:27→17:43)
[2022-04-09] MEDS: LINAGLIPTIN 5 MG TABLET PO SCH (08:27)
[2022-04-09] MEDS: ATORVASTATIN 40 MG TAB PO SCH (08:27)
[2022-04-09] MEDS: SULFAMETHOX-TMP 800-160MG 1 EACH TAB PO SCH ×2 (08:27→20:37)
[2022-04-09] MEDS: INSULIN DETEMIR (LEVEMIR) 100 UNIT/ML SYR SQ SCH (08:29)
[2022-04-09 11:13] LABS: Glucose,Whole Blood 298 mg/dL (70-110)
--- NOTE | 2022-04-09 12:53 | P.PN ---
Subjective Progress Note Date: 04/09/22 Principal diagnosis: DVT Hospital Course: Patient is an 86-year-old male with atrial fibrillation anticoagulated with Coumadin, dementia, and diabetes mellitus who presented with complaints of right upper extremity swelling and pain. In the ER he underwent an extensive evaluation. Initial vital signs within normal limits. Ultrasound was performed of the right upper extremity which showed a DVT. Laboratory analysis was remarkable for hemoglobin of 10.9, lactic acid 2.8, and INR 4.31. Humeral x- ray showed soft tissue swelling of the lower humerus with no fracture. 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 Right internal carotid artery velocities suggestive 50-70% stenosis with a 50% stenosis of the left internal carotid artery. Echocardiogram demonstrated ejection fraction 55- 60%. He was seen by vascular surgery who recommended hematology evaluation and no indication for vascular surgery intervention. He continued to have some fasting a.m. blood sugars in the 40s. Insulin regimen was adjusted and then dis continued, it was replaced with januvia to avoid hypoglycemia. . Hematology oncology were consulted. They felt as though his DVT was provoked. They did recommend Eliquis on discharge. His edema and redness improved he was transitioned to eliquis and bactrim. Currently awaiting SNF placement. Subjective: Patient seen and examined at bedside. Overnight, patient had epistaxis, resolved this morning. He denies any chest pain, shortness of breath, abdominal pain, diarrhea, constipation, or urinary complaints. Pertinent positives and negatives as discussed above, a complete review of systems was performed and all other systems are negative. Vitals Signs Reviewed. General: nontoxic, no distress, appears at stated age Derm: warm, dry, mild erythema inside of right elbow with 2+ edema of right arm Head: atraumatic, normocephalic, symmetric, hard of hearing Eyes: EOMI, no lid lag, anicteric sclera Mouth: no lip lesion, mucus membranes moist Cardiovascular: S1S2 reg, no murmur Lungs: CTA bilateral, no rhonchi, no rales , no accessory muscle use Abdominal: soft, nontender to palpation, no guarding Ext: no gross muscle atrophy, no edema, no contractures Neuro: CN II-XI grossly intact, no focal neuro deficits Psych: Alert, oriented, appropriate affect Assessment and Plan: Right brachial DVT, provoked, obtained with supratherapeutic Coumadin 4.3. - eliquis - follow-up heme/onc after discharge Right upper extremity cellulitis - off vanco - complete therapy wih bactrim Diabetes mellitus type 2, insulin-dependent, with episodes of hypoglycemia -Levemir 5 units, sliding scale insulin -Plan to discharge on metformin and Januvia. Could consider Levemir as an alternative. -Follow blood sugars-A1c is 8.4. Patient does not need a tight glycemic control secondary to his advanced age. He would likely suffer more dire consequences from hypoglycemia and falls then from relative hyperglycemia. Recurrent falls Presyncope -Patient denies any syncopal episodes -PT/OT evaluation recommend rehab therapy -Carotid Dopplers to show 50-70% stenosis on the right, 50% stenosis on the left Carotid stenosis -Outpatient vascular follow-up Anemia, likely iron deficiency -Hematology/oncology recommendations appreciated - oral iron Paroxysmal atrial fibrillation -Continue with metoprolol, digoxin -Currently rate controlled Awaiting bed a SNF, anticipate discharged on 04/10 DVT ppx: eliquis Anticipated discharge place: [facility] Anticipated discharge time: Tomorrow Objective - Vital Signs Vital signs: Vital Signs Temp 98.5 F 04/09/22 11:33 Pulse 65 04/09/22 11:33 Resp 17 04/09/22 11:33 BP 135/55 04/09/22 11:33 Pulse Ox 97 04/09/22 11:33 FiO2 Intake & Output 04/08/22 04/09/22 04/09/22 18:59 06:59 18:59 Other: # Voids 3 4 2 # Bowel Movements 1 2 1 - Labs CBC & Chem 7: 04/07/22 07:02 04/07/22 07:06 Labs: Abnormal Lab Results - Last 24 Hours (Table) 04/08/22 04/08/22 04/09/22 Range/Units 17:18 20:16 04:57 POC Glucose (mg/dL) 312 H 199 H 162 H (70-110) mg/dL 04/09/22 04/09/22 04/09/22 Range/Units 07:13 07:13 11:12 POC Glucose (mg/dL) 250 H 250 H 298 H (70-110) mg/dL Microbiology - Last 24 Hours (Table) 04/05/22 13:34 Blood Culture - Preliminary Blood No Growth after 72 hours 04/05/22 13:34 Blood Culture - Preliminary Blood No Growth after 72 hours
[2022-04-09 17:05] LABS: Glucose,Whole Blood 298 mg/dL (70-110)
[2022-04-09 17:41] VITALS: RESP 16
[2022-04-09 20:02] LABS: Glucose,Whole Blood 325 mg/dL (70-110)
[2022-04-10 04:42] VITALS: BP 141/67; PULSE 67; TEMP 97.9
[2022-04-10 07:23] LABS: Glucose,Whole Blood 290 mg/dL (70-110)
[2022-04-10] MEDS ORDERED: INSULIN DETEMIR (LEVEMIR) 100 UNIT/ML SYR SQ SCH (08:30)
[2022-04-10] MEDS: INSULIN ASPART (NovoLOG) 100 UNIT/ML VIAL SQ SCH (08:46)
[2022-04-10] MEDS: APIXABAN 5 MG TAB PO SCH (08:47)
[2022-04-10] MEDS: ATORVASTATIN 40 MG TAB PO SCH (08:47)
[2022-04-10] MEDS: METOPROLOL SUCCINATE (ER) 25 MG TAB.ER.24H PO SCH (08:47)
[2022-04-10] MEDS: CALCIUM CARB-VIT D 500 MG-5 MCG TAB PO SCH (08:47)
[2022-04-10] MEDS: PANTOPRAZOLE 40 MG TABLET PO SCH (08:47)
[2022-04-10] MEDS: LINAGLIPTIN 5 MG TABLET PO SCH (08:48)
[2022-04-10] MEDS: DIGOXIN 125 MCG TAB PO SCH (08:48)
[2022-04-10] MEDS: SULFAMETHOX-TMP 800-160MG 1 EACH TAB PO SCH (08:48)
--- NOTE | 2022-04-10 09:16 | P.DS ---
Providers Date of admission: 04/05/22 15:23 Expected date of discharge: 04/10/22 Attending physician: Leslie Brand MD Consults: 04/06/22 09:16 Consult Physician Routine Consulting Provider: Tulio Lawrence Consult Reason/Comments: DVT on coumadin Do you want consulting provider notified?: Yes Primary care physician: Stated None Hospital Course: Discharge Diagnosis: Right brachial DVT, provoked, obtained with supratherapeutic Coumadin 4.3. Right upper extremity cellulitis Diabetes mellitus type 2, insulin-dependent, with episodes of hypoglycemia Recurrent falls Presyncope Carotid stenosis Anemia, likely iron deficiency Paroxysmal atrial fibrillation Hospital Course: Patient is an 86-year-old male with atrial fibrillation anticoagulated with Coumadin, dementia, and diabetes mellitus who presented with complaints of right upper extremity swelling and pain. In the ER he underwent an extensive evaluation. Initial vital signs within normal limits. Ultrasound was performed of the right upper extremity which showed a DVT. Laboratory analysis was remarkable for hemoglobin of 10.9, lactic acid 2.8, and INR 4.31. Humeral x- ray showed soft tissue swelling of the lower humerus with no fracture. 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 Right internal carotid artery velocities suggestive 50-70% stenosis with a 50% stenosis of the left internal carotid artery. Echocardiogram demonstrated ejection fraction 55- 60%. He was seen by vascular surgery who recommended hematology evaluation and no indication for vascular surgery intervention. He continued to have some fasting a.m. blood sugars in the 40s. Insulin regimen was adjusted and then discontinued, it was replaced with januvia to avoid hypoglycemia. . Hematology oncology were consulted. They felt as though his DVT was provoked. They did recommend Eliquis on discharge. His edema and redness improved. He was determined stable for discharge. Follow-up: Eliquis 10 mg twice daily 4 days then Eliquis quit [address] George in 1 week Bactrim 2 days more Check blood sugar 3 times daily Fall precautions CBC in 1 week diagnosis anemia Keep right arm and Tay wrap while awake to decrease swelling Was having profound hypoglycemia in the hospital and then sugars increased and was have been slowly going up on long acting insulin again Patient seen and examined at bedside. Pain in arm as much better. Able to move are better. Denies any lightheadedness, chest pain, shortness of breath. Vital signs reviewed and stable. General: nontoxic, no distress, appears at stated age Derm: warm, dry, mild erythema inside of right elbow with 3+ edema of right arm Head: atraumatic, normocephalic, symmetric Eyes: EOMI, no lid lag, anicteric sclera Mouth: no lip lesion, mucus membranes moist Cardiovascular: S1S2 irreg, no murmur, positive posterior tibial pulse bi lateral, Lungs: CTA bilateral, no rhonchi, no rales , no accessory muscle use Abdominal: soft, nontender to palpation, no guarding, no appreciable organomegaly Ext: no gross muscle atrophy, + edema right arm, no contractures Neuro: CN II-XI grossly intact, no focal neuro deficits Psych: Alert, oriented, appropriate affect A total of 35 minutes of time were spent preparing this complex discharge summary. Patient was discharged on 04/07/22 . Patient Condition at Discharge: Stable Plan - Discharge Summary Discharge Rx Participant: Yes New Discharge Prescriptions: New sitaGLIPtin [Januvia] 100 mg PO DAILY #30 tab INSULIN ASPART (NovoLOG) [NovoLOG (formulary)] 0 unit SQ AC-TID each Pantoprazole [Protonix] 40 mg PO AC-BRKFST tab Insulin Detemir (Levemir) [Levemir] 10 unit SQ DAILY@0700 each Apixaban [Eliquis] 10 mg PO BID #0 tab Ferrous Sulfate [Feosol] 325 mg PO DAILY #30 tab Metoprolol Succinate (ER) [Toprol XL] 25 mg PO DAILY tab Sulfamethox-Tmp 800-160Mg [Bactrim DS 800-160 mg] 1 each PO BID 2 Days tab Continue metFORMIN HCL [Glucophage] 1,000 mg PO BID Atorvastatin [Lipitor] 40 mg PO DAILY Digoxin [Digitek] 125 mcg PO DAILY Discontinued Warfarin [Coumadin] 5 mg PO SUTUWETHSA lisinopriL [Zestril] 20 mg PO DAILY Warfarin [Coumadin] 7.5 mg PO MOFR Repaglinide [Prandin] 1 mg PO TID Insulin Glargine,Hum.rec.anlog [Toles Abreu Solostar] 27 units SQ DAILY@1130 Discharge Medication List metFORMIN HCL [Glucophage] 1,000 mg PO BID 04/01/18 [History] Atorvastatin [Lipitor] 40 mg PO DAILY 04/05/22 [History] Digoxin [Digitek] 125 mcg PO DAILY 04/05/22 [History] Apixaban [Eliquis] 10 mg PO BID #0 tab 04/07/22 [Rx] Ferrous Sulfate [Feosol] 325 mg PO DAILY #30 tab 04/07/22 [Rx] INSULIN ASPART (NovoLOG) [NovoLOG (formulary)] 0 unit SQ AC-TID each 04/07/22 [Rx] Metoprolol Succinate (ER) [Toprol XL] 25 mg PO DAILY tab 04/07/22 [Rx] Pantoprazole [Protonix] 40 mg PO AC-BRKFST tab 04/07/22 [Rx] sitaGLIPtin [Januvia] 100 mg PO DAILY #30 tab 04/07/22 [Rx] Insulin Detemir (Levemir) [Levemir] 10 unit SQ DAILY@0700 each 04/10/22 [Rx] Sulfamethox-Tmp 800-160Mg [Bactrim DS 800-160 mg] 1 each PO BID 2 Days tab 04/10/22 [Rx] Follow up Appointment(s)/Referral(s): Tanesha George MD [STAFF PHYSICIAN] - 1 Week None,Stated [Primary Care Provider] - 1-2 days Activity/Diet/Wound Care/Special Instructions: Activity: As tolerated Diet: Heart healthy Special Instructions Check blood sugar 3 times daily Eliquis 10 mg twice daily 4 days, then Eliquis quit 5 mg twice daily Bactrim 5 additional days CBC in 1 week diagnosis anemia Keep right arm and Tay wrap while awake to decrease swelling Fall Precautions Discharge Disposition: TRANSFER TO SNF/ECF
[2022-04-10] MEDS: INSULIN DETEMIR (LEVEMIR) 100 UNIT/ML SYR SQ SCH (09:29)
[2022-04-11] MEDS ORDERED: INSULIN DETEMIR (LEVEMIR) 100 UNIT/ML SYR SQ SCH (07:00)
== END 2022-04-10 12:22 | DRG 300 ==
LOC: EC 12:36 → 5NMEDONC 15:23
PROVIDERS: ADMIT Family Medicine; ATTEND Family Medicine
DX: I82.621 Acute embolism and thrombosis of deep veins of right upper extremity (principal); L03.113 Cellulitis of right upper limb; E11.649 Type 2 diabetes mellitus with hypoglycemia without coma; E11.42 Type 2 diabetes mellitus with diabetic polyneuropathy; F03.90 Unspecified dementia, unspecified severity, without behavioral disturbance, psychotic disturbance, mood disturbance, and anxiety; E11.65 Type 2 diabetes mellitus with hyperglycemia; D50.9 Iron deficiency anemia, unspecified; I65.23 Occlusion and stenosis of bilateral carotid arteries; I10 Essential (primary) hypertension; E78.5 Hyperlipidemia, unspecified; H91.90 Unspecified hearing loss, unspecified ear; R04.0 Epistaxis; M19.019 Primary osteoarthritis, unspecified shoulder; R79.1 Abnormal coagulation profile; R29.6 Repeated falls; I48.0 Paroxysmal atrial fibrillation; I25.10 Atherosclerotic heart disease of native coronary artery without angina pectoris; R79.89 Other specified abnormal findings of blood chemistry; S41.101A Unspecified open wound of right upper arm, initial encounter; W19.XXXA Unspecified fall, initial encounter; Z75.1 Person awaiting admission to adequate facility elsewhere; Z28.310 Unvaccinated for COVID-19; Z79.899 Other long term (current) drug therapy; Z79.84 Long term (current) use of oral hypoglycemic drugs; Z79.82 Long term (current) use of aspirin; Z95.5 Presence of coronary angioplasty implant and graft; Z87.891 Personal history of nicotine dependence; Z86.73 Personal history of transient ischemic attack (TIA), and cerebral infarction without residual deficits; Z79.01 Long term (current) use of anticoagulants; Z91.81 History of falling
CPT/HCPCS: 36415; 70450; 80048; 80053; 80162; 82306; 82550; 82607; 82728; 82746; 83036; 83540; 83550; 83605; 84145; 84443; 85025; 85027; 85610; 85730; 87040; 93005; 93306; 93880; 96365; 96375; 99285

== ENCOUNTER 2022-06-07 10:14 | Day surgery (SDC) | payer MEDICARE, BC ==
[~2022-06-07 10:14] MED LIST: DEXAMETHASONE SOD PHOSPHATE 4 MG/ML 1 ML VIAL IV ONE; FAMOTIDINE 20 MG/2 ML VIAL IV PRN; HYDROmorphone 0.5 MG/0.5 ML SYRINGE IVP PRN; LACTATED RINGERS 1,000 ML IV SCH; LIDOCAINE 1% (10MG/ML) FOR IV START INTRADERMA PRN; ONDANSETRON 4 MG/2 ML VIAL IVP ONE
[2022-06-07 10:59] LABS: Glucose,Whole Blood 109 mg/dL (70-110)
[2022-06-07 11:09] VITALS: TEMP 97
[2022-06-07] MEDS ORDERED: PROPOFOL 10 MG/ML 20 ML VIAL IV ONE (13:13)
[2022-06-07] MEDS ORDERED: fentaNYL (PF) 50 MCG/ML 2 ML AMP ONE (13:13)
[2022-06-07] MEDS ORDERED: LIDOCAINE 1%/EPI 1:200,000 MPF 10 ML VIAL SQ ONE ×2 (13:40)
[2022-06-07] MEDS ORDERED: BACITRACIN ZINC 500 UNIT/GM OINT 28.4 GM TUBE TOPICAL ONE (14:39)
--- NOTE | 2022-06-07 14:53 | P.OP ---
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 This was biopsied showing squamous cell carcinoma. Operative Findings: Left lateral ear lesion which was verrucous in nature Description of Procedure: Patient was brought in the operative suite and placed in a supine position. Patient underwent induction of IV sedation by the skiver hand after appropriate monitors were placed. The patient was prepped and draped in usual aseptic fashion including the left supraclavicular area for skin graft. 1% lidocaine with 1-100,000 epinephrine was infused cutaneously and field block fashion. This was left to work for 7 minutes vasoconstrictive effect. The left ear skin lesion was excised from the surrounding tissue grossly entirely including the underlying cartilage leaving the medial skin and perichondrium intact. This was sent for frozen section with negative margins reported. Full-thickness skin graft was then harvested from the left supraclavicular area in elliptical fashion which was defatted and this defect had and hemostasis with electrocautery and was closed with inverted interrupted 3-0 Vicryl suture in the subcutaneous layer and running locking 4-0 Prolene suture in the skin. Bacitracin ointment sterile dressings were placed. The skin graft was then sutured into place in the ear with 5-0 Vicryl suture left long and tied down over a bolster of Adaptic covering impregnated cotton ball with bacitracin. Excellent hemostasis was noted at both sites the patient was then transferred to postop recovery area in satisfactory condition alert and awake.
[2022-06-07 14:59] VITALS: RESP 16
[2022-06-07 15:24] VITALS: BP 137/67; PULSE 63
== END 2022-06-07 15:42 | disposition home or self-care (01) ==
LOC: OR 10:14
PROVIDERS: ATTEND Otolaryngology
DX: C44.229 Squamous cell carcinoma of skin of left ear and external auricular canal (principal); E11.9 Type 2 diabetes mellitus without complications; I11.0 Hypertensive heart disease with heart failure; I50.9 Heart failure, unspecified; Z95.5 Presence of coronary angioplasty implant and graft; G62.9 Polyneuropathy, unspecified; F03.90 Unspecified dementia, unspecified severity, without behavioral disturbance, psychotic disturbance, mood disturbance, and anxiety; Z87.891 Personal history of nicotine dependence; I48.91 Unspecified atrial fibrillation; E78.5 Hyperlipidemia, unspecified; Z79.82 Long term (current) use of aspirin; Z79.84 Long term (current) use of oral hypoglycemic drugs; Z79.899 Other long term (current) drug therapy
CPT/HCPCS: 15120; 11643; J1100; J0690; J2405

== ENCOUNTER 2022-08-09 13:30 | Inpatient (IN) | payer MEDICARE, BC ==
--- NOTE | 2022-08-09 13:54 | ED ---
General Adult HPI - General Chief complaint: Altered Mental Status Stated complaint: AMS Time Seen by Provider: 08/09/22 13:32 Source: patient, EMS, RN notes reviewed, old records reviewed (Reviewed transfer note) Mode of arrival: EMS Limitations: altered mental status - History of Present Illness Initial comments: Patient is a pleasant 86-year-old male presenting is a transfer from nursing facility for increased fatigue and drowsiness. Patient is also reportedly been more altered than normal. Patient is a poor historian and offers little information. Patient reportedly did have a fever a couple days ago. Patient has been generally weak. Patient did have a fall a couple of days ago. Patient has no specific complaints. - Related Data Home Medications Medication Instructions Recorded Confirmed metFORMIN HCL [Glucophage] 1,000 mg PO BID 04/01/18 08/09/22 Metoprolol Succinate (ER) [Toprol 25 mg PO DAILY 07/10/22 08/09/22 XL] Acetaminophen Tab [Tylenol] 650 mg PO Q6H PRN 07/26/22 08/09/22 Cholecalciferol [Vitamin D3 (25 50 mcg PO DAILY 07/26/22 08/09/22 Mcg = 1000 Iu)] Digoxin [Digitek] 125 mcg PO DAILY 07/26/22 08/09/22 Insulin Lispro [humaLOG Kwikpen] See Protocol SQ ACHS 07/26/22 08/09/22 Linagliptin [Tradjenta] 5 mg PO DAILY 07/26/22 08/09/22 Omeprazole [PriLOSEC] 20 mg PO DAILY 07/26/22 08/09/22 Insulin Glargine,Hum.rec.anlog 10 units SQ HS 08/09/22 08/09/22 [Lantus Solostar Pen] Insulin Lispro [humaLOG Kwikpen] 4 unit SQ AC-TID 08/09/22 08/09/22 Previous Rx's Medication Instructions Recorded Atorvastatin [Lipitor] 20 mg PO HS tab 07/28/22 levETIRAcetam [Keppra] 500 mg PO Q12HR tab 07/28/22 Allergies Allergy/AdvReac Type Severity Reaction Status Date / Time No Known Allergies Allergy Verified 08/09/22 13:48 Review of Systems ROS Statement: Those systems with pertinent positive or pertinent negative responses have been documented in the HPI. ROS Other: All systems not noted in ROS Statement are negative. Constitutional: Reports: as per HPI, fever Eyes: Denies: eye pain ENT: Denies: ear pain Respiratory: Denies: cough, dyspnea Cardiovascular: Denies: chest pain Endocrine: Reports: fatigue Gastrointestinal: Denies: abdominal pain Genitourinary: Denies: dysuria Musculoskeletal: Denies: back pain Neurological: Reports: as per HPI. Denies: headache Past Medical History Past Medical History: Atrial Fibrillation, Dementia, Diabetes Mellitus, Hearing Disorder / Deafness, Hyperlipidemia, Hypertension, Memory Impairment Additional Past Medical History / Comment(s): neuropathy, brain bleed History of Any Multi-Drug Resistant Organisms: None Reported Past Surgical History: Appendectomy, Heart Catheterization With Stent, Tonsillectomy Past Anesthesia/Blood Transfusion Reactions: No Reported Reaction Date of Last Stent Placement:: 1996 Past Psychological History: Anxiety Smoking Status: Former smoker Past Alcohol Use History: None Reported Past Drug Use History: None Reported - Past Family History Mother Family Medical History: Cancer Additional Family Medical History / Comment(s): Father Family Medical History: Congestive Heart Failure (CHF) Additional Family Medical History / Comment(s): 82 years old General Exam Limitations: altered mental status General appearance: alert, in no apparent distress Head exam: Present: other (Facial abrasions and contusions including forehead) Eye exam: Present: normal appearance, PERRL, EOMI ENT exam: Present: normal oropharynx Neck exam: Present: normal inspection. Absent: tenderness Respiratory exam: Present: normal lung sounds bilaterally Cardiovascular Exam: Present: regular rate, normal rhythm Expanded Peripheral pulses: 1+: Dorsalis Pedis (R), Dorsalis Pedis (L) GI/Abdominal exam: Present: soft. Absent: tenderness Extremities exam: Present: normal inspection, full ROM. Absent: tenderness Neurological exam: Present: alert. Absent: motor sensory deficit Psychiatric exam: Present: normal affect, normal mood Skin exam: Present: other (Right posterior leg with skin tear/stage I ulcer with necrotic appearance. Necrotic appearance right fourth and fifth toe. Mild chronic appearance of the great toe. Minimal dusky appearance right second and third toes) Course Vital Signs 08/09/22 08/09/22 08/09/22 13:32 15:20 16:15 Temperature 97.0 F L Pulse Rate 94 91 90 Respiratory 22 18 20 Rate Blood Pressure 151/79 167/91 173/102 O2 Sat by Pulse 97 90 L 92 L Oximetry - Reevaluation(s) Reevaluation #1: 08/09/22 18:24 Patient does be criteria for severe sepsis diagnosed at 1820. Blood culture and lactic acid and IV antibiotics will be admitted EKG Findings - EKG Results: EKG: interpreted by IMANI (Septal Q waves), normal axis, normal ST/T EKG shows: atrial fibrillation Medical Decision Making - Medical Decision Making Was pt. sent in by a medical professional or institution (, PA, HUMANITIES TEACHER, urgent care, hospital, or longterm...) When possible be specific @ -Patient was sent from nursing facility Did you speak to anyone other than the patient for history (EMS, parent, family, police, friend...)? What history was obtained from this source @ -Family is present and provides majority of history is patient is a poor historian Did you review nursing and triage notes (agree or disagree)? Why? @ -I reviewed and agree with nursing and triage notes Were old charts reviewed (outside hosp., previous admission, EMS record, old EKG, old radiological studies, urgent care reports/EKG's, longterm records)? Report findings @ -No old charts were reviewed Differential Diagnosis (chest pain, altered mental status, abdominal pain women, abdominal pain men, vaginal bleeding, weakness, fever, dyspnea, syncope, headache, dizziness, GI bleed, back pain, seizure, CVA, palpatations, mental health)? @ -Differential Weakness: Hypoglycemia, shock, sepsis, hyponatremia, anemia, infection, NJ, ETOH, adverse medicine reaction, overdose, stroke, this is not meant to be an all-inclusive list. EKG interpreted by me (3pts min.). @ -As above X-rays interpreted by me (1pt min.). @ -X-ray right foot shows no destructive changes. Fracture of the first digit possibly subacute x-ray right tib-fib shows no acute osseous abnormality. Two- view chest x-ray shows right-sided infiltrate. Effusion CT interpreted by me (1pt min.). @ -Reports reviewed U/S interpreted by me (1pt. min.). @ -None done What testing was considered but not performed or refused? (CT, X-rays, U/S, labs)? Why? @ -None What meds were considered but not given or refused? Why? @ -None Did you discuss the management of the patient with other professionals (professionals i.e. DrDoris, PA, HUMANITIES TEACHER, lab, RT, psych nurse, manager social media, commercial pest control representative, teacher, special assets officer, case management manager)? Give summary @ -Discussion was had with Dr. Mercado will admit covering for Dr. Gonzalez. Case was also discussed with practitioner branch who will consult with Dr. Monreal. Was smoking cessation discussed for >3mins.? @ -No Was critical care preformed (if so, how long)? @ -32 minutes critical care time Were there social determinants of health that impacted care today? How? (Homelessness, low income, unemployed, alcoholism, drug addiction, transporta tion, low edu. Level, literacy, decrease access to med. care, long term, rehab)? @ -No Was there de-escalation of care discussed even if they declined (Discuss DNR or withdrawal of care, Hospice)? DNR status @ -No What co-morbidities impacted this encounter? (DM, HTN, Smoking, COPD, CAD, Cancer, CVA, ARF, Chemo, Hep., AIDS, mental health diagnosis, sleep apnea, morbid obesity)? @ -Multiple previous comorbidities including arterial insufficiency and previous subdural hematoma Was patient admitted / discharged? Hospital course, mention meds given and route, prescriptions, significant lab abnormalities, going to OR and other pertinent info. @ -Long discussion had with family. They state patient would not want surgery regarding head injury or potential neck injury. Both of these areas are questionable whether or not they are any acute injury. Family does not want to surgically addressed and would like to state this Hospital. They prefer not to be transferred. Patient and family are updated on results and plan. Dr. Quinonez will also be consult at for ischemic toes. Undiagnosed new problem with uncertain prognosis? @ -No Drug Therapy requiring intensive monitoring for toxicity (Heparin, Nitro, Ins ulin, Cardizem)? @ -No Were any procedures done? @ -No Diagnosis/symptom? @ -Ischemic toes, chronic subdural hematoma, pneumonia Acute, or Chronic, or Acute on Chronic? @ -Acute on chronic, acute on chronic Uncomplicated (without systemic symptoms) or Complicated (systemic symptoms)? @ -Dictated with elevated troponin Side effects of treatment? @ -No Exacerbation, Progression, or Severe Exacerbation? @ -No Poses a threat to life or bodily function? How? (Chest pain, USA, NJ, pneumonia, PE, COPD, DKA, ARF, appy, cholecystitis, CVA, Diverticulitis, Homicidal, Suicidal, threat to staff... and all critical care pts) @ -No - Lab Data Result diagrams: 08/09/22 13:50 08/09/22 14:15 Lab Results 08/09/22 08/09/22 08/09/22 Range/Units 13:50 13:50 13:52 WBC 12.9 H (3.8-10.6) k/uL RBC 4.87 (4.30-5.90) m/uL Hgb 12.2 L (13.0-17.5) gm/dL Hct 39.0 (39.0-53.0) % MCV 80.1 (80.0-100.0) fL MCH 25.1 (25.0-35.0) pg MCHC 31.3 (31.0-37.0) g/dL RDW 15.2 (11.5-15.5) % Plt Count 275 (150-450) k/uL MPV 10.0 Neutrophils % 80 % Lymphocytes % 11 % Monocytes % 6 % Eosinophils % 1 % Basophils % 1 % Neutrophils # 10.3 H (1.3-7.7) k/uL Lymphocytes # 1.4 (1.0-4.8) k/uL Monocytes # 0.7 (0-1.0) k/uL Eosinophils # 0.1 (0-0.7) k/uL Basophils # 0.1 (0-0.2) k/uL Hypochromasia Slight PT (9.0-12.0) sec INR (<1.2) APTT (22.0-30.0) sec Sodium (137-145) mmol/L Potassium (3.5-5.1) mmol/L Chloride (98-107) mmol/L Carbon Dioxide (22-30) mmol/L Anion Gap mmol/L BUN (9-20) mg/dL Creatinine (0.66-1.25) mg/dL Est GFR (CKD-EPI)AfAm (>60 ml/min/1.73 sqM) Est GFR (CKD-EPI)NonAf (>60 ml/min/1.73 sqM) Glucose (74-99) mg/dL POC Glucose (mg/dL) (70-110) mg/dL POC Glu Compressor Battery Pellets ID Lactic Ac Sepsis Rflx Plasma Lactic Acid Shaheed 3.6 H* (0.7-2.0) mmol/L Calcium (8.4-10.2) mg/dL Total Bilirubin (0.2-1.3) mg/dL AST (17-59) U/L ALT (4-49) U/L Alkaline Phosphatase (38-126) U/L Troponin I (0.000-0.034) ng/mL Total Protein (6.3-8.2) g/dL Albumin (3.5-5.0) g/dL Influenza Type A (PCR) Not Detected (Not Detectd) Influenza Type B (PCR) Not Detected (Not Detectd) RSV (PCR) Not Detected (Not Detectd) SARS-CoV-2 (PCR) Not Detected (Not Detectd) 08/09/22 08/09/22 08/09/22 Range/Units 14:00 14:15 14:26 WBC (3.8-10.6) k/uL RBC (4.30-5.90) m/uL Hgb (13.0-17.5) gm/dL Hct (39.0-53.0) % MCV (80.0-100.0) fL MCH (25.0-35.0) pg MCHC (31.0-37.0) g/dL RDW (11.5-15.5) % Plt Count (150-450) k/uL MPV Neutrophils % % Lymphocytes % % Monocytes % % Eosinophils % % Basophils % % Neutrophils # (1.3-7.7) k/uL Lymphocytes # (1.0-4.8) k/uL Monocytes # (0-1.0) k/uL Eosinophils # (0-0.7) k/uL Basophils # (0-0.2) k/uL Hypochromasia PT (9.0-12.0) sec INR (<1.2) APTT (22.0-30.0) sec Sodium 134 L (137-145) mmol/L Potassium 3.9 (3.5-5.1) mmol/L Chloride 99 (98-107) mmol/L Carbon Dioxide 28 (22-30) mmol/L Anion Gap 7 mmol/L BUN 14 (9-20) mg/dL Creatinine 0.55 L (0.66-1.25) mg/dL Est GFR (CKD-EPI)AfAm >90 (>60 ml/min/1.73 sqM) Est GFR (CKD-EPI)NonAf >90 (>60 ml/min/1.73 sqM) Glucose 221 H (74-99) mg/dL POC Glucose (mg/dL) 294 H (70-110) mg/dL POC Glu Compressor Battery Pellets ID [place] Chung Lactic Ac Sepsis Rflx Y Plasma Lactic Acid Shaheed (0.7-2.0) mmol/L Calcium 8.4 (8.4-10.2) mg/dL Total Bilirubin 0.5 (0.2-1.3) mg/dL AST 23 (17-59) U/L ALT 24 (4-49) U/L Alkaline Phosphatase 143 H (38-126) U/L Troponin I (0.000-0.034) ng/mL Total Protein 6.9 (6.3-8.2) g/dL Albumin 3.3 L (3.5-5.0) g/dL Influenza Type A (PCR) (Not Detectd) Influenza Type B (PCR) (Not Detectd) RSV (PCR) (Not Detectd) SARS-CoV-2 (PCR) (Not Detectd) 08/09/22 08/09/22 Range/Units 15:40 15:42 WBC (3.8-10.6) k/uL RBC (4.30-5.90) m/uL Hgb (13.0-17.5) gm/dL Hct (39.0-53.0) % MCV (80.0-100.0) fL MCH (25.0-35.0) pg MCHC (31.0-37.0) g/dL RDW (11.5-15.5) % Plt Count (150-450) k/uL MPV Neutrophils % % Lymphocytes % % Monocytes % % Eosinophils % % Basophils % % Neutrophils # (1.3-7.7) k/uL Lymphocytes # (1.0-4.8) k/uL Monocytes # (0-1.0) k/uL Eosinophils # (0-0.7) k/uL Basophils # (0-0.2) k/uL Hypochromasia PT 12.8 H (9.0-12.0) sec INR 1.3 H (<1.2) APTT 25.0 (22.0-30.0) sec Sodium (137-145) mmol/L Potassium (3.5-5.1) mmol/L Chloride (98-107) mmol/L Carbon Dioxide (22-30) mmol/L Anion Gap mmol/L BUN (9-20) mg/dL Creatinine (0.66-1.25) mg/dL Est GFR (CKD-EPI)AfAm (>60 ml/min/1.73 sqM) Est GFR (CKD-EPI)NonAf (>60 ml/min/1.73 sqM) Glucose (74-99) mg/dL POC Glucose (mg/dL) (70-110) mg/dL POC Glu Compressor Battery Pellets ID Lactic Ac Sepsis Rflx Plasma Lactic Acid Shaheed (0.7-2.0) mmol/L Calcium (8.4-10.2) mg/dL Total Bilirubin (0.2-1.3) mg/dL AST (17-59) U/L ALT (4-49) U/L Alkaline Phosphatase (38-126) U/L Troponin I 0.167 H* (0.000-0.034) ng/mL Total Protein (6.3-8.2) g/dL Albumin (3.5-5.0) g/dL Influenza Type A (PCR) (Not Detectd) Influenza Type B (PCR) (Not Detectd) RSV (PCR) (Not Detectd) SARS-CoV-2 (PCR) (Not Detectd) Critical Care Time Critical Care Time: Yes Total Critical Care Time: 32 Disposition Clinical Impression: Chronic subdural hematoma, Pneumonia, Ischemic necrosis of toe Disposition: ADMITTED IP TO THIS HOSP Condition: Serious Is patient prescribed a controlled substance at d/c from ED?: No Referrals: None,Stated [REFERRING] - 1-2 days Time of Disposition: 18:24
[2022-08-09 14:02] LABS: Glucose,Whole Blood 294 mg/dL (70-110)
[2022-08-09 14:07] LABS: Basophils # (A) 0.1 k/uL (0-0.2); Basophils % (A) 1 %; Eosinophils # (A) 0.1 k/uL (0-0.7); Eosinophils % (A) 1 %; HGB 12.2 gm/dL (13.0-17.5); Hypochromasia Slight; Lymphocytes # (A) 1.4 k/uL (1.0-4.8); Lymphocytes % (A) 11 %; MCH 25.1 pg (25.0-35.0); MCHC 31.3 g/dL (31.0-37.0); MCV 80.1 fL (80.0-100.0); Monocytes # (A) 0.7 k/uL (0-1.0); Monocytes % (A) 6 %; Neutrophils # (A) 10.3 k/uL (1.3-7.7); Neutrophils % (A) 80 %; Platelet Count 275 k/uL (150-450); RBC 4.87 m/uL (4.30-5.90); RDW 15.2 % (11.5-15.5); WBC 12.9 k/uL (3.8-10.6)
--- NOTE | 2022-08-09 15:00 | XR ---
EXAMINATION TYPE: XR chest 2V DATE OF EXAM: 08/09/2022 COMPARISON: 08/09/2022 TECHNIQUE: PA and lateral views submitted. HISTORY: Altered mental status FINDINGS: Diffuse interstitial pattern with a right lower lobe infiltrate and small effusion. There is arthropa thy of the shoulders. No pneumothorax. Limited inspiration with findings of degenerative disc disease and diffuse idiopathic skeletal hyperostosis. IMPRESSION: 1. Right-sided infiltrate with pleural effusion correlate for CHF otherwise consider pneumonia.
--- NOTE | 2022-08-09 15:01 | XR ---
EXAMINATION TYPE: XR tibia fibula RT DATE OF EXAM: 08/09/2022 COMPARISON: NONE HISTORY: Pain TECHNIQUE: Two views are submitted. FINDINGS: The osseous structures are intact. Severe arthropathy of the knee joint with soft tissue edema and va scular calcifications. Severe hypertrophic arthropathy of the patellofemoral joint. Diffuse osteopeni a. IMPRESSION: 1. No acute osseous abnormality. There is severe osteoarthritis of the knee. Soft tissue edema noted.
--- NOTE | 2022-08-09 15:04 | CT ---
EXAMINATION TYPE: CT brain daniel banda DATE OF EXAM: 08/09/2022 COMPARISON: Brain 07/28/2022 HISTORY: 86-year-old male weakness, confusion, altered mental status and fall 2 days ago. History of previous brain bleed. CT DLP: 1477.6 mGycm Automated exposure control for dose reduction was used. Technique: Examination of the head was done in axial plane without intravenous contrast. Coronal and sagittal reconstructions performed. CT of the cervical spine was obtained in axial plane without intravenous injection of contrast mater ial. Coronal and sagittal reformatted images were obtained from the axial views for evaluation of f ractures, spinal alignment and canal. FINDINGS: Head: There is redemonstration of a subdural hematoma along the left lateral and superior convexity. There is mixed acute and chronic blood products within the hematoma which measures up to 1.2 cm thick versu s 1.6 cm, previously on 07/28/2022. Mild local mass effect onto the left-sided cerebral sulci. 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 There is 6 mm of rightward midline shift as compared to 7 mm, previously. There is otherwise moderate generalized supratentorial volume loss and mild ventricular prominence li ivet from central cerebral atrophy. There is no herniation or effacement of basal subarachnoid cisterns. Metastatic calcifications in the carotid siphons. Meek-white matter differentiation is maintained. Trace mucosal thickening anterior ethmoid air cells. Leftward nasal septal deviation. Mastoid air rk ls are well pneumatized. Orbits and globes are intact. Cervical spine: A layering right pleural effusion is noted in the visualized right upper lung. Large nodule right lobe of the thyroid gland measuring up to 5.8 x 4.6 cm for which thyroid ultrasoun d evaluation is recommended. Possible severe atherosclerotic stenosis proximal left ICA and possible moderate on the right. The patient's head is turned towards the right. No craniocervical junction abnormality, predental space widening, or prevertebral soft tissue swellin g. Moderate to advanced spondylotic change throughout the cervical spine. Degenerative grade 1 anterolisthesis C2-C3. Grade 1 retrolisthesis C3-C4, C4-C5, C5-C6. Interval development of minimal anterior wedging/superior endplate deformity of T2 compared to [id number]. However, no discrete fracture line is seen refer to sagittal image 51. Otherwise, no acute fracture of the cervical spine. Variable moderate neuroforaminal stenoses throughout. Narrowing is severe on the left at C3-C4. Suspect at least mild, possibly moderate variable spinal canal narrowing from C3 through C6 levels. No acute fracture seen of the cervical spine. Sagittal and coronal reformatted images confirm above findings. COMBINED IMPRESSION: Brain: 1. Redemonstrated subdural hematoma along the left superolateral convexity. Currently measuring 1.2 c m thick versus 1.6 cm 07/28/2022. Rightward midline shift measures 6 mm versus 7 mm, previously. Mixed acute and chronic blood products remain within the subdural collection. 2. No herniation or additional acute bleed seen. 3. 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 Cervical spine: 4. Subtle superior endplate deformity with minimal anterior wedging of the T2 vertebral body not rufino rly seen on the patient's 07/10/2022 prior study. A subtle superior endplate fracture here is suggeste d. The fracture line is not well seen. 5. Moderate to advanced multilevel spondylotic changes above. 6. Incidental: Right pleural effusion, large 5.8 cm right thyroid nodule/mass for which thyroid ultra sound is recommended, suspected left greater than right proximal ICA stenoses.
--- NOTE | 2022-08-09 15:04 | XR ---
EXAMINATION TYPE: XR foot complete RT DATE OF EXAM: 08/09/2022 COMPARISON: NONE HISTORY: Pain TECHNIQUE: Three views are submitted. FINDINGS: There is diffuse osteopenia with DIP joint arthropathy. There is a deformity involving the distal pha lanx first digit. Calcaneal spurs are seen and there are vascular calcifications. Soft tissue edema. There is arthropathy of the tarsometatarsal junction. IMPRESSION: 1. No destructive changes, however, there appears to be a subacute fracture involving the distal phal anx first digit correlate with point tenderness. 2. Arthropathy and soft tissue edema.
[2022-08-09 16:07] LABS: INR 1.3 (<1.2); Prothrombin Time 12.8 sec (9.0-12.0)
[2022-08-09 17:38] LABS: ALT 24 U/L (4-49); AST 23 U/L (17-59); African American GFR (CKD) >90 (>60 ml/min/1.73 sqM); Albumin 3.3 g/dL (3.5-5.0); Alkaline Phosphatase 143 U/L (38-126); Anion Gap 7 mmol/L; Blood Urea Nitrogen 14 mg/dL (9-20); Calcium 8.4 mg/dL (8.4-10.2); Carbon Dioxide 28 mmol/L (22-30); Chloride 99 mmol/L (98-107); Glucose 221 mg/dL (74-99); Non-African American GFR(CKD) >90 (>60 ml/min/1.73 sqM); Potassium 3.9 mmol/L (3.5-5.1); Sodium 134 mmol/L (137-145); Total Bilirubin 0.5 mg/dL (0.2-1.3); Total Protein 6.9 g/dL (6.3-8.2)
[2022-08-09] MEDS ORDERED: AZITHROMYCIN 500 MG in SODIUM CHLORIDE 0.9% 250 ML IVPB STA (18:26)
[2022-08-09] MEDS ORDERED: PNEUMONIA PROTOCOL UTILIZED 1 EACH MISC PO PRN (18:26)
[2022-08-09] MEDS ORDERED: NALOXONE 0.4 MG/ML 1 ML VIAL IV PRN (18:31)
[2022-08-09 18:46] LABS: Appearance,Urine Cloudy (Clear); Bacteria,Urine Moderate /hpf; Bilirubin,Urine Negative (Negative); Blood,Urine Moderate (Negative); Color,Urine Yellow; Glucose,Urine (UA) 4+ (Negative); Ketones,Urine Negative (Negative); Leukocyte Esterase,Urine Large (Negative); Mucus,Urine Rare /hpf; Nitrite,Urine Negative (Negative); PH, Urine 5.5 (5.0-8.0); Protein,Urine 1+ (Negative); RBC,Urine 62 /hpf (0-5); Specific Gravity,Urine 1.012 (1.001-1.035); Squamous Epithelial Cell,Urine <1 /hpf (0-4); Urobilinogen,Urine <2.0 mg/dL (<2.0); WBC,Urine >182 /hpf (0-5)
[2022-08-09 19:00] LABS: Amphetamine Screen,Urine Not Detected (NotDetected); Barbiturate Screen,Urine Not Detected (NotDetected); Benzodiazepines Screen,Urine Not Detected (NotDetected); Cocaine Screen,Urine Not Detected (NotDetected); Methadone Screen, Urine Not Detected (NotDetected); Opiate Screen,Urine Not Detected (NotDetected); Oxycodone Screen, Urine Not Detected (NotDetected); Phencyclidine Screen,Urine Not Detected (NotDetected); Tricyclic Antidepressant,Urine Not Detected (NotDetected); Urn Cannabinoid Scrn Not Detected (NotDetected)
[2022-08-09] MEDS: SODIUM CHLORIDE 0.9% 1,000 ML IV SCH (20:10)
--- NOTE | 2022-08-09 21:28 | P.HPIM ---
History of Present Illness H&P Date: 08/09/22 The patient is an 86-year-old male with a PMH of peripheral arterial disease (with chronic occlusions of right great and fourth and fifth toe), A. fib (not on anticoagulation due to recent intracranial hemorrhage), CAD status post stents, hypertension, type II DM, and hyperlipidemia resident of [facility] who was brought into the emergency room for confusion and generalized weakness. The patient's family including his 2 sons and daughter were at the bedside and supplemented the history. They report of the patient has had multiple falls recently at [facility] including 2 this past Sunday. They state that patient developed a left forehead bruise as well as periorbital ecchymosis after the fall. The patient is also been complaining of intermittent right foot and toe pain. He was also noted to have cloudy and foul smelling urine and had endorsed dysuria to the [facility] staff recently. At time of interview, the patient reported feeling at his baseline and had no active complaints. He did endorse intermittent right foot pain occurring mostly at night. He denied chest discomfort, shortness of breath, cough, fever, or chills. The patient underwent an extensive evaluation in the emergency room with a CT brain and C-spine without contrast revealing a subdural hematoma along with the left superolateral convexity measuring 1.2 cm versus 1.6 cm on 07/28 with midline shift measuring 6 mm versus 7 mm previously. A subdural collection was noted to have acute and chronic blood products with no herniation or additional acute bleeding seen. 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 EKG had revealed A. fib at [address]/T-wave changes noted as reviewed by me. Chest x-ray had revealed right-sided infiltrate with pleural effusion, concerning for pneumonia versus CHF. Right foot x-ray revealed a subacute fracture involving the distal phalanx of the first digit with arthropathy and soft tissue edema. Laboratory evaluation was remarkable for leukocytosis of 12.9, sodium 134, potassium 3.9, BUN 14, creatinine 0.55, lactic acid 3.6, troponin 0.167, UA consistent with UTI, urine toxicology negative. Review of systems: Pertinent positives and negatives as discussed in HPI, a complete review of systems was performed and all other systems are negative. Physical examination: Vital signs reviewed General: non toxic, no distress, appears at stated age Derm: Left forehead large bruise noted, L periorbital ecchymosis noted, warm Head: Normocephalic, symmetric Eyes: EOMI, no lid lag, anicteric sclera, pupils equal round reactive to light ENT: Nose and ears atraumatic Neck: No cervical lymphadenopathy, trachea midline, supple Mouth: no lip lesion, mucus membranes moist Cardiovascular: S1S2 reg, no murmur, unable to palpate dorsalis pedis pulses bilaterally, no edema Lungs: CTA bilateral, no rhonchi, no rales, no accessory muscle use Abdominal: soft, nontender to palpation, no guarding Ext: muscle strength 4 out of 5 in all 4 extremities grossly, no gross muscle atrophy, no contractures, L great, third and 4th toe necrotic appearing Neuro: CN II-XI grossly intact, no gross focal neuro deficits Psych: Alert, oriented to person and place, not oriented to time Assessment: Altered mental status, possibly secondary to UTI versus acute on chronic intracranial bleeds R toes ischemia (following with Dr Quinonez) Urinary tract infection Multiple recent falls Possible T2 superior end-plate fracture Troponin elevation Lactic acidosis Imaging: CT brain and C-spine without contrast revealing a subdural hematoma along with the left superolateral convexity measuring 1.2 cm versus 1.6 cm on 07/28 with midline shift measuring 6 mm versus 7 mm previously. A subdural collection was noted to have acute and chronic blood products with no herniation or additional acute bleeding seen. Cervical spine CT did reveal possible T2 fracture multiple spondylytic changes as well as a right pleural effusion with large 5.8 cm right thyroid mass for which thyroid ultrasound was recommended as well as a suspected left greater than right proximal ICA stenosis. EKG had revealed A. fib at [address]/T-wave changes noted as reviewed by me. Chest x-ray had revealed right-sided infiltrate with pleural effusion, concerning for pneumonia versus CHF. Right foot x-ray revealed a subacute fracture involving the distal phalanx of the first digit with arthropathy and soft tissue edema. Data Review: Laboratory evaluation was remarkable for leukocytosis of 12.9, sodium 134, potassium 3.9, BUN 14, creatinine 0.55, lactic acid 3.6, troponin 0.167, UA consistent with UTI, urine toxicology negative. Plan: Discussed with the family in detail regarding possible acute on chronic intracranial bleeding with need for neurosurgery evaluation. The family notes that the patient is a No Code and that they do not wish for him to be transferred to another facility. They state the patient has noted multiple times that he has lived a long and happy live and does not wish to undergo aggressive interventions. Vascular surgery consulted C/w Ceftriaxone 2g q24h and f/u urine cultures Trend troponin, low suspicion of NSTEMI as patient denying chest discomfort or SOB Cardiac monitoring Monitor lactic acid levels for resolution Orthopedic surgery consulted DVT prophylaxis: IPCDs The patient is admitted with an anticipated greater than 2 midnight stay for evaluation of altered mental status CODE STATUS: No Code Discussed with: Patient, Sons, daughter Anticipated discharge place: Home Past Medical History Past Medical History: Atrial Fibrillation, Dementia, Diabetes Mellitus, Hearing Disorder / Deafness, Hyperlipidemia, Hypertension, Memory Impairment Additional Past Medical History / Comment(s): neuropathy, brain bleed History of Any Multi-Drug Resistant Organisms: None Reported Past Surgical History: Appendectomy, Heart Catheterization With Stent, Tonsillectomy Past Anesthesia/Blood Transfusion Reactions: No Reported Reaction Date of Last Stent Placement:: 1996 Past Psychological History: Anxiety Smoking Status: Former smoker Past Alcohol Use History: None Reported Past Drug Use History: None Reported - Past Family History Mother Family Medical History: Cancer Additional Family Medical History / Comment(s): Father Family Medical History: Congestive Heart Failure (CHF) Additional Family Medical History / Comment(s): 82 years old Medications and Allergies Home Medications Medication Instructions Recorded Confirmed Type metFORMIN HCL [Glucophage] 1,000 mg PO BID 04/01/18 08/09/22 History Metoprolol Succinate (ER) [Toprol 25 mg PO DAILY 07/10/22 08/09/22 History XL] Acetaminophen Tab [Tylenol] 650 mg PO Q6H PRN 07/26/22 08/09/22 History Cholecalciferol [Vitamin D3 (25 50 mcg PO DAILY 07/26/22 08/09/22 History Mcg = 1000 Iu)] Digoxin [Digitek] 125 mcg PO DAILY 07/26/22 08/09/22 History Insulin Lispro [humaLOG Kwikpen] See Protocol SQ ACHS 07/26/22 08/09/22 History Linagliptin [Tradjenta] 5 mg PO DAILY 07/26/22 08/09/22 History Omeprazole [PriLOSEC] 20 mg PO DAILY 07/26/22 08/09/22 History Atorvastatin [Lipitor] 20 mg PO HS tab 07/28/22 08/09/22 Rx levETIRAcetam [Keppra] 500 mg PO Q12HR tab 07/28/22 08/09/22 Rx Insulin Glargine,Hum.rec.anlog 10 units SQ HS 08/09/22 08/09/22 History [Lantus Solostar Pen] Insulin Lispro [humaLOG Kwikpen] 4 unit SQ AC-TID 08/09/22 08/09/22 History Allergies Allergy/AdvReac Type Severity Reaction Status Date / Time No Known Allergies Allergy Verified 08/09/22 13:48 Physical Exam Vitals: Vital Signs Temp Pulse Resp BP Pulse Ox 08/09/22 18:00 85 20 136/66 98 08/09/22 16:15 86 20 152/71 95 08/09/22 15:20 86 18 136/78 92 L 08/09/22 13:32 97.0 F L 94 22 151/79 97 Intake and Output 08/09/22 08/09/22 08/09/22 06:59 14:59 22:59 Other: Weight 81.647 kg Results CBC & Chem 7: 08/09/22 13:50 08/09/22 14:15 Labs: Abnormal Lab Results - Last 24 Hours (Table) 08/09/22 08/09/22 08/09/22 Range/Units 13:50 13:52 14:00 WBC 12.9 H (3.8-10.6) k/uL Hgb 12.2 L (13.0-17.5) gm/dL Neutrophils # 10.3 H (1.3-7.7) k/uL PT (9.0-12.0) sec INR (<1.2) Sodium (137-145) mmol/L Creatinine (0.66-1.25) mg/dL Glucose (74-99) mg/dL POC Glucose (mg/dL) 294 H (70-110) mg/dL Plasma Lactic Acid Shaheed 3.6 H* (0.7-2.0) mmol/L Alkaline Phosphatase (38-126) U/L Troponin I (0.000-0.034) ng/mL Albumin (3.5-5.0) g/dL Urine Protein (Negative) Urine Glucose (UA) (Negative) Urine Blood (Negative) Ur Leukocyte Esterase (Negative) Urine RBC (0-5) /hpf Urine WBC (0-5) /hpf Urine WBC Clumps (None) /hpf Urine Bacteria (None) /hpf Urine Mucus (None) /hpf 08/09/22 08/09/22 08/09/22 Range/Units 14:15 15:40 15:42 WBC (3.8-10.6) k/uL Hgb (13.0-17.5) gm/dL Neutrophils # (1.3-7.7) k/uL PT 12.8 H (9.0-12.0) sec INR 1.3 H (<1.2) Sodium 134 L (137-145) mmol/L Creatinine 0.55 L (0.66-1.25) mg/dL Glucose 221 H (74-99) mg/dL POC Glucose (mg/dL) (70-110) mg/dL Plasma Lactic Acid Shaheed (0.7-2.0) mmol/L Alkaline Phosphatase 143 H (38-126) U/L Troponin I 0.167 H* (0.000-0.034) ng/mL Albumin 3.3 L (3.5-5.0) g/dL Urine Protein (Negative) Urine Glucose (UA) (Negative) Urine Blood (Negative) Ur Leukocyte Esterase (Negative) Urine RBC (0-5) /hpf Urine WBC (0-5) /hpf Urine WBC Clumps (None) /hpf Urine Bacteria (None) /hpf Urine Mucus (None) /hpf 08/09/22 08/09/22 Range/Units 17:50 18:44 WBC (3.8-10.6) k/uL Hgb (13.0-17.5) gm/dL Neutrophils # (1.3-7.7) k/uL PT (9.0-12.0) sec INR (<1.2) Sodium (137-145) mmol/L Creatinine (0.66-1.25) mg/dL Glucose (74-99) mg/dL POC Glucose (mg/dL) (70-110) mg/dL Plasma Lactic Acid Shaheed 2.5 H* (0.7-2.0) mmol/L Alkaline Phosphatase (38-126) U/L Troponin I (0.000-0.034) ng/mL Albumin (3.5-5.0) g/dL Urine Protein 1+ H (Negative) Urine Glucose (UA) 4+ H (Negative) Urine Blood Moderate H (Negative) Ur Leukocyte Esterase Large H (Negative) Urine RBC 62 H (0-5) /hpf Urine WBC >182 H (0-5) /hpf Urine WBC Clumps Moderate H (None) /hpf Urine Bacteria Moderate H (None) /hpf Urine Mucus Rare H (None) /hpf
[2022-08-09 23:26] LABS: Glucose,Whole Blood 282 mg/dL (70-110)
[2022-08-10] MEDS: SODIUM CHLORIDE 0.9% 1,000 ML IV SCH ×2 (05:11→13:59)
[2022-08-10] MEDS ORDERED: SODIUM CHLORIDE 0.9% 1,000 ML IV ONE (05:32)
[2022-08-10 06:40] LABS: Glucose,Whole Blood 207 mg/dL (70-110)
--- NOTE | 2022-08-10 07:24 | XR ---
EXAMINATION TYPE: XR chest 1V portable DATE OF EXAM: 08/10/2022 6:32 AM COMPARISON: Chest radiographs from 08/09/2022 TECHNIQUE: XR chest 1V portable Portable AP radiograph of the chest. CLINICAL INDICATION:Male, 86 years old with history of pneumonia; FINDINGS: Lungs/Pleura: Diffuse haziness of lungs increased from prior. There is no evidence of pleural effusio n, focal consolidation, or pneumothorax. Pulmonary vascularity: Pulmonary vascular congestion. Heart/mediastinum: Cardiomediastinal silhouette is enlarged and stable. Atherosclerotic calcificatio ns are seen in the aorta. Musculoskeletal: No acute osseous pathology. IMPRESSION: Worsening haziness the lungs which could be due to low lung lines correlate with BNP for congestive h eart failure versus pneumonia
--- NOTE | 2022-08-10 08:09 | P.CNOR ---
History of Present Illness - [facility] Consult date: 08/10/22 Consult reason: other (Thoracic vertebral body compression fracture) History of present illness: Patient is an 86-year-old male who was brought to [facility] for increase in her mental status and fatigue. Patient has been staying at an assisted-living home. Upon arrival to the hospital, multiple imaging and lab tests were done. Patient has very detailed past medical history. According to the family, patient is of multiple falls, 2 separate occasions this past Sunday. There is been concern for urinary tract infection. Patient is an acute on chronic intracranial bleed. Patient was admitted under internal medicine, multiple consults were placed. Computed tomography scan of the head and neck were done demonstrating the acute on chronic intracranial bleed, there are also changes noted in the thoracic spine. Our orthopedic team was consulted due to a possible vertebral compression fracture in the thoracic spine. Patient was evaluated at bedside, he is currently in the emergency room awaiting placement. Patient was sleeping upon arrival, he was easily awoken. Patient does seem confused but pleasant. He did answer most my questions. He denies any significant neck, mid back or low back pain at this time. He was noted to have multiple facial bruises. Patient denies any previous surgery to the cervical or thoracic spine. Patient denies any obvious numbness or tingling in the bilateral upper or lower extremities. Patient denies any loss of bowel or bladder function at this time. Review of Systems Constitutional: Reports as per HPI Past Medical History Past Medical History: Atrial Fibrillation, Dementia, Diabetes Mellitus, Hearing Disorder / Deafness, Hyperlipidemia, Hypertension, Memory Impairment Additional Past Medical History / Comment(s): neuropathy, brain bleed History of Any Multi-Drug Resistant Organisms: None Reported Past Surgical History: Appendectomy, Heart Catheterization With Stent, T onsillectomy Past Anesthesia/Blood Transfusion Reactions: No Reported Reaction Date of Last Stent Placement:: 1996 Past Psychological History: Anxiety Smoking Status: Former smoker Past Alcohol Use History: None Reported Past Drug Use History: None Reported - Past Family History Mother Family Medical History: Cancer Additional Family Medical History / Comment(s): Father Family Medical History: Congestive Heart Failure (CHF) Additional Family Medical History / Comment(s): 82 years old Medications and Allergies Home Medications Medication Instructions Recorded Confirmed Type metFORMIN HCL [Glucophage] 1,000 mg PO BID 04/01/18 08/09/22 History Metoprolol Succinate (ER) [Toprol 25 mg PO DAILY 07/10/22 08/09/22 History XL] Acetaminophen Tab [Tylenol] 650 mg PO Q6H PRN 07/26/22 08/09/22 History Cholecalciferol [Vitamin D3 (25 50 mcg PO DAILY 07/26/22 08/09/22 History Mcg = 1000 Iu)] Digoxin [Digitek] 125 mcg PO DAILY 07/26/22 08/09/22 History Insulin Lispro [humaLOG Kwikpen] See Protocol SQ ACHS 07/26/22 08/09/22 History Linagliptin [Tradjenta] 5 mg PO DAILY 07/26/22 08/09/22 History Omeprazole [PriLOSEC] 20 mg PO DAILY 07/26/22 08/09/22 History Atorvastatin [Lipitor] 20 mg PO HS tab 07/28/22 08/09/22 Rx levETIRAcetam [Keppra] 500 mg PO Q12HR tab 07/28/22 08/09/22 Rx Insulin Glargine,Hum.rec.anlog 10 units SQ HS 08/09/22 08/09/22 History [Lantus Solostar Pen] Insulin Lispro [humaLOG Kwikpen] 4 unit SQ AC-TID 08/09/22 08/09/22 History Allergies Allergy/AdvReac Type Severity Reaction Status Date / Time No Known Allergies Allergy Verified 08/09/22 13:48 Physical Examination Gen: AOx3, NAD VSS stable at this time Integument: No obvious open lesions or sores are present throughout the cervical, thoracic or lumbar spine Palpation: Mild tenderness with palpation to the paraspinal region of the lower cervical and upper thoracic region. No significant tenderness appreciated in the lumbar spine ROM: Full range of motion in all major muscle groups of the bilateral upper and lower extremities, no focal deficits appreciated Sensory Exam: Senory exam to light touch is intact C5-T1 Senosry exam to light touch is intact L2-S1 Motor: 4-/5 strength appreciated in the bilateral upper extremities with shoulder abduction, shoulder elevation, elbow extension, elbow flexion, wrist extension, wrist flexion, help desk operator Reflexes: Negative Meyer, negative clonus bilaterally Results - Labs Labs: Abnormal Lab Results - Last 24 Hours (Table) 08/09/22 08/09/22 08/09/22 Range/Units 13:50 13:52 14:00 WBC 12.9 H (3.8-10.6) k/uL Hgb 12.2 L (13.0-17.5) gm/dL Neutrophils # 10.3 H (1.3-7.7) k/uL PT (9.0-12.0) sec INR (<1.2) Sodium (137-145) mmol/L Creatinine (0.66-1.25) mg/dL Glucose (74-99) mg/dL POC Glucose (mg/dL) 294 H (70-110) mg/dL Plasma Lactic Acid Shaheed 3.6 H* (0.7-2.0) mmol/L Alkaline Phosphatase (38-126) U/L Troponin I (0.000-0.034) ng/mL Albumin (3.5-5.0) g/dL Urine Protein (Negative) Urine Glucose (UA) (Negative) Urine Blood (Negative) Ur Leukocyte Esterase (Negative) Urine RBC (0-5) /hpf Urine WBC (0-5) /hpf Urine WBC Clumps (None) /hpf Urine Bacteria (None) /hpf Urine Mucus (None) /hpf 08/09/22 08/09/22 08/09/22 Range/Units 14:15 15:40 15:42 WBC (3.8-10.6) k/uL Hgb (13.0-17.5) gm/dL Neutrophils # (1.3-7.7) k/uL PT 12.8 H (9.0-12.0) sec INR 1.3 H (<1.2) Sodium 134 L (137-145) mmol/L Creatinine 0.55 L (0.66-1.25) mg/dL Glucose 221 H (74-99) mg/dL POC Glucose (mg/dL) (70-110) mg/dL Plasma Lactic Acid Shaheed (0.7-2.0) mmol/L Alkaline Phosphatase 143 H (38-126) U/L Troponin I 0.167 H* (0.000-0.034) ng/mL Albumin 3.3 L (3.5-5.0) g/dL Urine Protein (Negative) Urine Glucose (UA) (Negative) Urine Blood (Negative) Ur Leukocyte Esterase (Negative) Urine RBC (0-5) /hpf Urine WBC (0-5) /hpf Urine WBC Clumps (None) /hpf Urine Bacteria (None) /hpf Urine Mucus (None) /hpf 08/09/22 08/09/22 08/09/22 Range/Units 17:50 18:44 20:56 WBC (3.8-10.6) k/uL Hgb (13.0-17.5) gm/dL Neutrophils # (1.3-7.7) k/uL PT (9.0-12.0) sec INR (<1.2) Sodium (137-145) mmol/L Creatinine (0.66-1.25) mg/dL Glucose (74-99) mg/dL POC Glucose (mg/dL) (70-110) mg/dL Plasma Lactic Acid Shaheed 2.5 H* (0.7-2.0) mmol/L Alkaline Phosphatase (38-126) U/L Troponin I 0.179 H* (0.000-0.034) ng/mL Albumin (3.5-5.0) g/dL Urine Protein 1+ H (Negative) Urine Glucose (UA) 4+ H (Negative) Urine Blood Moderate H (Negative) Ur Leukocyte Esterase Large H (Negative) Urine RBC 62 H (0-5) /hpf Urine WBC >182 H (0-5) /hpf Urine WBC Clumps Moderate H (None) /hpf Urine Bacteria Moderate H (None) /hpf Urine Mucus Rare H (None) /hpf 08/09/22 08/09/22 08/10/22 Range/Units 22:34 23:23 00:00 WBC (3.8-10.6) k/uL Hgb (13.0-17.5) gm/dL Neutrophils # (1.3-7.7) k/uL PT (9.0-12.0) sec INR (<1.2) Sodium (137-145) mmol/L Creatinine (0.66-1.25) mg/dL Glucose (74-99) mg/dL POC Glucose (mg/dL) 282 H (70-110) mg/dL Plasma Lactic Acid Shaheed 2.6 H* (0.7-2.0) mmol/L Alkaline Phosphatase (38-126) U/L Troponin I 0.180 H* (0.000-0.034) ng/mL Albumin (3.5-5.0) g/dL Urine Protein (Negative) Urine Glucose (UA) (Negative) Urine Blood (Negative) Ur Leukocyte Esterase (Negative) Urine RBC (0-5) /hpf Urine WBC (0-5) /hpf Urine WBC Clumps (None) /hpf Urine Bacteria (None) /hpf Urine Mucus (None) /hpf 08/10/22 08/10/22 Range/Units 03:47 06:39 WBC (3.8-10.6) k/uL Hgb (13.0-17.5) gm/dL Neutrophils # (1.3-7.7) k/uL PT (9.0-12.0) sec INR (<1.2) Sodium (137-145) mmol/L Creatinine (0.66-1.25) mg/dL Glucose (74-99) mg/dL POC Glucose (mg/dL) 207 H (70-110) mg/dL Plasma Lactic Acid Shaheed 3.9 H* (0.7-2.0) mmol/L Alkaline Phosphatase (38-126) U/L Troponin I (0.000-0.034) ng/mL Albumin (3.5-5.0) g/dL Urine Protein (Negative) Urine Glucose (UA) (Negative) Urine Blood (Negative) Ur Leukocyte Esterase (Negative) Urine RBC (0-5) /hpf Urine WBC (0-5) /hpf Urine WBC Clumps (None) /hpf Urine Bacteria (None) /hpf Urine Mucus (None) /hpf Microbiology - Last 24 Hours (Table) 08/09/22 17:50 Urine Culture - Preliminary Urine,Voided H & H 08/09/22 Range/Units 13:50 Hgb 12.2 L (13.0-17.5) gm/dL Hct 39.0 (39.0-53.0) % Coagulation 08/09/22 Range/Units 15:42 INR 1.3 H (<1.2) Result Diagrams: 08/09/22 13:50 08/09/22 14:15 - Diagnostic results CT scan - cervical: report reviewed, image reviewed Assessment and Plan Assessment: T2 vertebral compression fracture Multilevel cervical spondylosis Multiple medical comorbidities Plan: Imaging: I was able to review the images with my attending Dr. Howard. Images demonstrate multilevel cervical spondylosis with degenerative changes. Superior end plate changes are noted involving the T2 vertebral body. Plan: After discussion with Dr. Howard, no orthopedic surgical intervention is warranted Recommending conservative measures at this time, this including use of Tylenol or anti-inflammatories for discomfort. Patient is very asymptomatic with regards to his cervical and thoracic spine at this time. Other medical surgery nurse recommendations Please contact our orthopedic service with any questions regarding this patient Time with Patient: Less than 30
[2022-08-10 08:11] LABS: Glucose,Whole Blood 218 mg/dL (70-110)
[2022-08-10] MEDS: INSULIN ASPART (NovoLOG) 100 UNIT/ML VIAL SQ SCH ×4 (08:26→20:11)
[2022-08-10] MEDS: DIGOXIN 125 MCG TAB PO SCH (08:30)
[2022-08-10] MEDS: levETIRAcetam 500 MG TAB PO SCH ×2 (08:31→20:11)
[2022-08-10] MEDS: METOPROLOL SUCCINATE (ER) 25 MG TAB.ER.24H PO SCH (08:32)
[2022-08-10] MEDS ORDERED: PANTOPRAZOLE 40 MG/10 ML VIAL IV SCH (09:00)
--- NOTE | 2022-08-10 10:23 | P.GSCN ---
History of Present Illness Consult date: 08/10/22 Reason for Consult: Ischemic toes Requesting physician: Dandre Zhang History of present illness: Patient is a 86-year-old male who presented to the ER for altered mental status changes and weakness. Patient resides at [facility], apparently he has had some increased mental status changes as well as weakness with recent falls. Most of patient's history is obtained from chart. Patient was recently hospitalized for a brain bleed as well as ischemic changes to toes on his right foot. Vascular surgery was consulted at that time and it was determined to continue with medical management. Patient is very hard of hearing, has dementia, he is alert and oriented to self and place. He states that he does have pain with ambulating and sometimes at rest in his right foot and toes. Patient states he fell approximately one week ago. He does have visible periorbital ecchymosis of the left eye and abrasion to the left forehead. On admission patient was acidotic, had elevated troponins, chest x-ray reported right-sided infiltrate with pleural effusion correlate for CHF or otherwise consider pneumonia. Repeat chest x-ray this morning shows worsening haziness in the lungs. Patient currently denies any shortness of breath or chest pain. He has been afebrile this admission. Vascular surgery was consulted for ischemic toes. Right foot x-ray reports no destructive changes appears to be a subacute fracture involving the distal phalanx first digit. Arthropathy and soft tissue edema. Of note, back last fall he was diagnosed and upper extremity DVT and initiated on oral anticoagulation after transition from Coumadin as he was supratherapeutic and still developed a DVT. He was doing relatively well with this however in the past few months has been deteriorating as far as his mentation and activities of daily living. He was seen here in this hospital in early June and found to have a new however non-acute subdural collection in the left frontal parietal region with no acute hemorrhage noted. For this he was transferred down to [facility] for evaluation by a neurosurgeon and the resultant measures of that were discontinuation of his oral anticoagulation. During his most recent admission 07/26/2022 through 07/28/2022 he had a repeat brain CT that again showed similar mixed age subdural hematoma mostly subacute and chronic blood products but with some intermixed acute blood as well. At that time the family did not want patient transferred for any further neuro interventional intervention. Vascular surgery was also consulted at that time for ischemic toes. CT angiogram with runoff was ordered and reviewed with findings of significant chronic peripheral arterial disease with superficial femoral artery occlusion. However due to patient's subacute/acute brain bleed anticoagulation is not recommended. No surgical intervention was recommended for revascularization due to the fact that the patient cannot be anticoagulated following the procedure. This was discussed with the patient's daughter and medical management was agreed upon. Review of Systems A 14 point review systems was completed all pertinent positives and negatives as stated in the HPI. Past Medical History Past Medical History: Atrial Fibrillation, Dementia, Diabetes Mellitus, Hearing Disorder / Deafness, Hyperlipidemia, Hypertension, Memory Impairment Additional Past Medical History / Comment(s): neuropathy, brain bleed History of Any Multi-Drug Resistant Organisms: None Reported Past Surgical History: Appendectomy, Heart Catheterization With Stent, Tonsillectomy Past Anesthesia/Blood Transfusion Reactions: No Reported Reaction Date of Last Stent Placement:: 1996 Past Psychological History: Anxiety Smoking Status: Former smoker Past Alcohol Use History: None Reported Past Drug Use History: None Reported - Past Family History Mother Family Medical History: Cancer Additional Family Medical History / Comment(s): Father Family Medical History: Congestive Heart Failure (CHF) Additional Family Medical History / Comment(s): 82 years old Medications and Allergies Home Medications Medication Instructions Recorded Confirmed Type metFORMIN HCL [Glucophage] 1,000 mg PO BID 04/01/18 08/09/22 History Metoprolol Succinate (ER) [Toprol 25 mg PO DAILY 07/10/22 08/09/22 History XL] Acetaminophen Tab [Tylenol] 650 mg PO Q6H PRN 07/26/22 08/09/22 History Cholecalciferol [Vitamin D3 (25 50 mcg PO DAILY 07/26/22 08/09/22 History Mcg = 1000 Iu)] Digoxin [Digitek] 125 mcg PO DAILY 07/26/22 08/09/22 History Insulin Lispro [humaLOG Kwikpen] See Protocol SQ ACHS 07/26/22 08/09/22 History Linagliptin [Tradjenta] 5 mg PO DAILY 07/26/22 08/09/22 History Omeprazole [PriLOSEC] 20 mg PO DAILY 07/26/22 08/09/22 History Atorvastatin [Lipitor] 20 mg PO HS tab 07/28/22 08/09/22 Rx levETIRAcetam [Keppra] 500 mg PO Q12HR tab 07/28/22 08/09/22 Rx Insulin Glargine,Hum.rec.anlog 10 units SQ HS 08/09/22 08/09/22 History [Lantus Solostar Pen] Insulin Lispro [humaLOG Kwikpen] 4 unit SQ AC-TID 08/09/22 08/09/22 History Allergies Allergy/AdvReac Type Severity Reaction Status Date / Time No Known Allergies Allergy Verified 08/09/22 13:48 Surgical - Exam Vital Signs Temp Pulse Resp BP Pulse Ox 97.0 F L 94 22 151/79 97 08/09/22 13:32 08/09/22 13:32 08/09/22 13:32 08/09/22 13:32 08/09/22 13:32 General appearance: The patient is alert, oriented to self and place, appears in no acute distress. Very hard of hearing. Poor historian. HET: Head with abrasion and ecchymosis to left forehead. Left periorbital ecchymosis. Pupils are equal and reactive. Neck: Supple. Trachea midline. Heart: Regular. Lungs: Equal expansion, normal respiratory effort. Abdomen: Soft, nontender, nondistended. Extremities: Right lower extremity with erythema, wound to posterior aspect of right lower extremity with eschar, no drainage noted. Right great toe with wound to the lateral side, with ischemia/dry gangrene. Fourth and fifth toes ischemic/dry gangrene. Sensorimotor intact. Foot is warm to the touch, toes are cool. Capillary refill 3-6 seconds. Neurological: Alert, oriented to self and place. Results - Labs 08/09/22 13:50 08/09/22 14:15 Abnormal Lab Results - Last 24 Hours (Table) 08/09/22 08/09/22 08/09/22 Range/Units 13:50 13:52 14:00 WBC 12.9 H (3.8-10.6) k/uL Hgb 12.2 L (13.0-17.5) gm/dL Neutrophils # 10.3 H (1.3-7.7) k/uL PT (9.0-12.0) sec INR (<1.2) Sodium (137-145) mmol/L Creatinine (0.66-1.25) mg/dL Glucose (74-99) mg/dL POC Glucose (mg/dL) 294 H (70-110) mg/dL Plasma Lactic Acid Shaheed 3.6 H* (0.7-2.0) mmol/L Alkaline Phosphatase (38-126) U/L Troponin I (0.000-0.034) ng/mL Albumin (3.5-5.0) g/dL Urine Protein (Negative) Urine Glucose (UA) (Negative) Urine Blood (Negative) Ur Leukocyte Esterase (Negative) Urine RBC (0-5) /hpf Urine WBC (0-5) /hpf Urine WBC Clumps (None) /hpf Urine Bacteria (None) /hpf Urine Mucus (None) /hpf 08/09/22 08/09/22 08/09/22 Range/Units 14:15 15:40 15:42 WBC (3.8-10.6) k/uL Hgb (13.0-17.5) gm/dL Neutrophils # (1.3-7.7) k/uL PT 12.8 H (9.0-12.0) sec INR 1.3 H (<1.2) Sodium 134 L (137-145) mmol/L Creatinine 0.55 L (0.66-1.25) mg/dL Glucose 221 H (74-99) mg/dL POC Glucose (mg/dL) (70-110) mg/dL Plasma Lactic Acid Shaheed (0.7-2.0) mmol/L Alkaline Phosphatase 143 H (38-126) U/L Troponin I 0.167 H* (0.000-0.034) ng/mL Albumin 3.3 L (3.5-5.0) g/dL Urine Protein (Negative) Urine Glucose (UA) (Negative) Urine Blood (Negative) Ur Leukocyte Esterase (Negative) Urine RBC (0-5) /hpf Urine WBC (0-5) /hpf Urine WBC Clumps (None) /hpf Urine Bacteria (None) /hpf Urine Mucus (None) /hpf 08/09/22 08/09/22 08/09/22 Range/Units 17:50 18:44 20:56 WBC (3.8-10.6) k/uL Hgb (13.0-17.5) gm/dL Neutrophils # (1.3-7.7) k/uL PT (9.0-12.0) sec INR (<1.2) Sodium (137-145) mmol/L Creatinine (0.66-1.25) mg/dL Glucose (74-99) mg/dL POC Glucose (mg/dL) (70-110) mg/dL Plasma Lactic Acid Shaheed 2.5 H* (0.7-2.0) mmol/L Alkaline Phosphatase (38-126) U/L Troponin I 0.179 H* (0.000-0.034) ng/mL Albumin (3.5-5.0) g/dL Urine Protein 1+ H (Negative) Urine Glucose (UA) 4+ H (Negative) Urine Blood Moderate H (Negative) Ur Leukocyte Esterase Large H (Negative) Urine RBC 62 H (0-5) /hpf Urine WBC >182 H (0-5) /hpf Urine WBC Clumps Moderate H (None) /hpf Urine Bacteria Moderate H (None) /hpf Urine Mucus Rare H (None) /hpf 08/09/22 08/09/22 08/10/22 Range/Units 22:34 23:23 00:00 WBC (3.8-10.6) k/uL Hgb (13.0-17.5) gm/dL Neutrophils # (1.3-7.7) k/uL PT (9.0-12.0) sec INR (<1.2) Sodium (137-145) mmol/L Creatinine (0.66-1.25) mg/dL Glucose (74-99) mg/dL POC Glucose (mg/dL) 282 H (70-110) mg/dL Plasma Lactic Acid Shaheed 2.6 H* (0.7-2.0) mmol/L Alkaline Phosphatase (38-126) U/L Troponin I 0.180 H* (0.000-0.034) ng/mL Albumin (3.5-5.0) g/dL Urine Protein (Negative) Urine Glucose (UA) (Negative) Urine Blood (Negative) Ur Leukocyte Esterase (Negative) Urine RBC (0-5) /hpf Urine WBC (0-5) /hpf Urine WBC Clumps (None) /hpf Urine Bacteria (None) /hpf Urine Mucus (None) /hpf 08/10/22 08/10/22 08/10/22 Range/Units 03:47 06:39 08:07 WBC (3.8-10.6) k/uL Hgb (13.0-17.5) gm/dL Neutrophils # (1.3-7.7) k/uL PT (9.0-12.0) sec INR (<1.2) Sodium (137-145) mmol/L Creatinine (0.66-1.25) mg/dL Glucose (74-99) mg/dL POC Glucose (mg/dL) 207 H 218 H (70-110) mg/dL Plasma Lactic Acid Shaheed 3.9 H* (0.7-2.0) mmol/L Alkaline Phosphatase (38-126) U/L Troponin I (0.000-0.034) ng/mL Albumin (3.5-5.0) g/dL Urine Protein (Negative) Urine Glucose (UA) (Negative) Urine Blood (Negative) Ur Leukocyte Esterase (Negative) Urine RBC (0-5) /hpf Urine WBC (0-5) /hpf Urine WBC Clumps (None) /hpf Urine Bacteria (None) /hpf Urine Mucus (None) /hpf Microbiology - Last 24 Hours (Table) 08/09/22 17:50 Urine Culture - Preliminary Urine,Voided Diabetes panel 08/09/22 Range/Units 14:15 Sodium 134 L (137-145) mmol/L Potassium 3.9 (3.5-5.1) mmol/L Chloride 99 (98-107) mmol/L Carbon Dioxide 28 (22-30) mmol/L BUN 14 (9-20) mg/dL Creatinine 0.55 L (0.66-1.25) mg/dL Glucose 221 H (74-99) mg/dL Calcium 8.4 (8.4-10.2) mg/dL AST 23 (17-59) U/L ALT 24 (4-49) U/L Alkaline Phosphatase 143 H (38-126) U/L Total Protein 6.9 (6.3-8.2) g/dL Albumin 3.3 L (3.5-5.0) g/dL Calcium panel 08/09/22 Range/Units 14:15 Calcium 8.4 (8.4-10.2) mg/dL Albumin 3.3 L (3.5-5.0) g/dL Pituitary panel 08/09/22 Range/Units 14:15 Sodium 134 L (137-145) mmol/L Potassium 3.9 (3.5-5.1) mmol/L Chloride 99 (98-107) mmol/L Carbon Dioxide 28 (22-30) mmol/L BUN 14 (9-20) mg/dL Creatinine 0.55 L (0.66-1.25) mg/dL Glucose 221 H (74-99) mg/dL Calcium 8.4 (8.4-10.2) mg/dL Adrenal panel 08/09/22 Range/Units 14:15 Sodium 134 L (137-145) mmol/L Potassium 3.9 (3.5-5.1) mmol/L Chloride 99 (98-107) mmol/L Carbon Dioxide 28 (22-30) mmol/L BUN 14 (9-20) mg/dL Creatinine 0.55 L (0.66-1.25) mg/dL Glucose 221 H (74-99) mg/dL Calcium 8.4 (8.4-10.2) mg/dL Total Bilirubin 0.5 (0.2-1.3) mg/dL AST 23 (17-59) U/L ALT 24 (4-49) U/L Alkaline Phosphatase 143 H (38-126) U/L Total Protein 6.9 (6.3-8.2) g/dL Albumin 3.3 L (3.5-5.0) g/dL Assessment and Plan Assessment: 1. Dry gangrene right first, fourth and fifth toes 2. Chronic peripheral arterial disease with cyanotic changes of the right great, fourth and fifth toe 3. Right superficial femoral artery occlusion 4. Right posterior calf wound 5. Redemonstration subdural hematoma with discontinuation of oral anticoagulation 6. Altered mental status changes 7. Lactic acidosis 8. Urinary tract infection 9. Multiple recent falls 10. Previous left frontal lobe infarct 11. History of atrial fibrillation not on anticoagulation 12. Diabetes mellitus Plan: 1. Continue symptomatic and supportive care 2. No plans at this time for any vascular surgical intervention, we'll continue to allow demarcation of toes. The patient is not a candidate for peripheral revascularization as he cannot be on anticoagulation due to subdural hematoma/bleed. 3. Continue medical management 4. Consider palliative care consult, as patient and family do not want any aggressive interventions. Will defer to primary medical team. Thank you for this consultation, we will sign off at this time. The impression and plan of care has been dictated as directed. Dr. Quinonez I performed a history and examination of this patient, discussed the same with the dictator. I agree with the dictator's note ,documented as a scribe. Any additional findings or plans will be noted.
--- NOTE | 2022-08-10 12:45 | P.PN ---
Subjective Progress Note Date: 08/10/22 Hospital Course: 86-year-old male with a PMH of peripheral arterial disease (with chronic occlusions of right great and fourth and fifth toe), A. fib (not on anticoagulation due to recent intracranial hemorrhage), CAD status post stents, hypertension, type II DM, and hyperlipidemia resident of [facility] who was brought into the emergency room for confusion and generalized weakness. The patient underwent an extensive evaluation in the emergency room with a CT brain and C-spine without contrast revealing a subdural hematoma along with the left superolateral convexity measuring 1.2 cm versus 1.6 cm on 07/28 with midline shift measuring 6 mm versus 7 mm previously. A subdural collection was noted to have acute and chronic blood products with no herniation or additional acute bleeding seen. 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 EKG had revealed A. fib at [address]/T-wave changes noted as reviewed by me. Chest x-ray had revealed right-sided infiltrate with pleural effusion, concerning for pneumonia versus CHF. Right foot x-ray revealed a subacute fracture involving the distal phalanx of the first digit with arthropathy and soft tissue edema. Laboratory evaluation was remarkable for leukocytosis of 12.9, sodium 134, potassium 3.9, BUN 14, creatinine 0.55, lactic acid 3.6, troponin 0.167, UA consistent with UTI, urine toxicology negative. Patient admitted for increased confusion, traumatic injuries, and generalized weakness. Subjective: Patient seen and examined at bedside. No acute events overnight. Patient is currently confused, but denies any chest pain, shortness of breath, abdominal pain, nausea, vomiting, diarrhea, constipation, or urinary complaints. Has a Quinonez catheter placed. Pertinent positives and negatives as discussed above, a complete review of systems was performed and all other systems are negative. Vitals Signs Reviewed. General: non toxic, no distress, appears at stated age Derm: Left forehead large bruise noted, L periorbital ecchymosis noted, warm Head: Normocephalic, symmetric Eyes: EOMI, no lid lag, anicteric sclera, pupils equal round reactive to light ENT: Nose and ears atraumatic Neck: No cervical lymphadenopathy, trachea midline, supple Mouth: no lip lesion, mucus membranes moist Cardiovascular: S1S2 reg, no murmur, unable to palpate dorsalis pedis pulses priya aterally, no edema Lungs: CTA bilateral, no rhonchi, no rales, no accessory muscle use Abdominal: soft, nontender to palpation, no guarding Ext: muscle strength 4 out of 5 in all 4 extremities grossly, no gross muscle atrophy, no contractures, L great, third and 4th toe necrotic appearing Neuro: CN II-XI grossly intact, no gross focal neuro deficits Psych: Alert, oriented to person and place, not oriented to time Data reviewed today: Lab data: Lactic acid 1.4, troponin 0.180, glucose 218 Assessment and Plan: Active: Patient is currently critically ill with intracranial bleeding, family decided to not escalate care. Palliative care consult pending. Acute metabolic encephalopathy Urinary tract infection Acute on chronic intracranial bleeds R toes ischemia (following with Dr Quinonez) Multiple recent falls Possible T2 superior end-plate fracture Troponin elevation Hyperglycemia Leukocytosis, reactive Mild hyponatremia -Family declining further neurosurgical intervention, or transferred to another facility -Continue ceftriaxone 2 g IV every 24 hours -Vascular surgery note reviewed: No surgical interventions -Orthospine note reviewed: Conservative measures only -Palliative care consult ordered -Troponin elevation likely in the setting of intracranial bleed -Cardiology consult pending -On sliding scale insulin -Repeat CBC and BMP tomorrow Resolved: Lactic acidosis DVT ppx: SCDs Code status: DNR/DNI Anticipated discharge place: Pending clinical course Anticipated discharge time: Pending clinical course Objective - Vital Signs Vital signs: Vital Signs Temp 97.2 F L 08/09/22 20:00 Pulse 85 08/10/22 12:20 Resp 18 08/10/22 12:20 BP 113/69 08/10/22 12:20 Pulse Ox 95 08/10/22 12:20 FiO2 Intake & Output 08/09/22 08/10/22 08/10/22 18:59 06:59 18:59 Output Total 800 Balance -800 Weight 81.647 kg Output: Urine 800 - Labs CBC & Chem 7: 08/09/22 13:50 08/09/22 14:15 Labs: Abnormal Lab Results - Last 24 Hours (Table) 08/09/22 08/09/22 08/09/22 Range/Units 13:50 13:52 14:00 WBC 12.9 H (3.8-10.6) k/uL Hgb 12.2 L (13.0-17.5) gm/dL Neutrophils # 10.3 H (1.3-7.7) k/uL PT (9.0-12.0) sec INR (<1.2) Sodium (137-145) mmol/L Creatinine (0.66-1.25) mg/dL Glucose (74-99) mg/dL POC Glucose (mg/dL) 294 H (70-110) mg/dL Plasma Lactic Acid Shaheed 3.6 H* (0.7-2.0) mmol/L Alkaline Phosphatase (38-126) U/L Troponin I (0.000-0.034) ng/mL Albumin (3.5-5.0) g/dL Urine Protein (Negative) Urine Glucose (UA) (Negative) Urine Blood (Negative) Ur Leukocyte Esterase (Negative) Urine RBC (0-5) /hpf Urine WBC (0-5) /hpf Urine WBC Clumps (None) /hpf Urine Bacteria (None) /hpf Urine Mucus (None) /hpf 08/09/22 08/09/22 08/09/22 Range/Units 14:15 15:40 15:42 WBC (3.8-10.6) k/uL Hgb (13.0-17.5) gm/dL Neutrophils # (1.3-7.7) k/uL PT 12.8 H (9.0-12.0) sec INR 1.3 H (<1.2) Sodium 134 L (137-145) mmol/L Creatinine 0.55 L (0.66-1.25) mg/dL Glucose 221 H (74-99) mg/dL POC Glucose (mg/dL) (70-110) mg/dL Plasma Lactic Acid Shaheed (0.7-2.0) mmol/L Alkaline Phosphatase 143 H (38-126) U/L Troponin I 0.167 H* (0.000-0.034) ng/mL Albumin 3.3 L (3.5-5.0) g/dL Urine Protein (Negative) Urine Glucose (UA) (Negative) Urine Blood (Negative) Ur Leukocyte Esterase (Negative) Urine RBC (0-5) /hpf Urine WBC (0-5) /hpf Urine WBC Clumps (None) /hpf Urine Bacteria (None) /hpf Urine Mucus (None) /hpf 08/09/22 08/09/22 08/09/22 Range/Units 17:50 18:44 20:56 WBC (3.8-10.6) k/uL Hgb (13.0-17.5) gm/dL Neutrophils # (1.3-7.7) k/uL PT (9.0-12.0) sec INR (<1.2) Sodium (137-145) mmol/L Creatinine (0.66-1.25) mg/dL Glucose (74-99) mg/dL POC Glucose (mg/dL) (70-110) mg/dL Plasma Lactic Acid Shaheed 2.5 H* (0.7-2.0) mmol/L Alkaline Phosphatase (38-126) U/L Troponin I 0.179 H* (0.000-0.034) ng/mL Albumin (3.5-5.0) g/dL Urine Protein 1+ H (Negative) Urine Glucose (UA) 4+ H (Negative) Urine Blood Moderate H (Negative) Ur Leukocyte Esterase Large H (Negative) Urine RBC 62 H (0-5) /hpf Urine WBC >182 H (0-5) /hpf Urine WBC Clumps Moderate H (None) /hpf Urine Bacteria Moderate H (None) /hpf Urine Mucus Rare H (None) /hpf 08/09/22 08/09/22 08/10/22 Range/Units 22:34 23:23 00:00 WBC (3.8-10.6) k/uL Hgb (13.0-17.5) gm/dL Neutrophils # (1.3-7.7) k/uL PT (9.0-12.0) sec INR (<1.2) Sodium (137-145) mmol/L Creatinine (0.66-1.25) mg/dL Glucose (74-99) mg/dL POC Glucose (mg/dL) 282 H (70-110) mg/dL Plasma Lactic Acid Shaheed 2.6 H* (0.7-2.0) mmol/L Alkaline Phosphatase (38-126) U/L Troponin I 0.180 H* (0.000-0.034) ng/mL Albumin (3.5-5.0) g/dL Urine Protein (Negative) Urine Glucose (UA) (Negative) Urine Blood (Negative) Ur Leukocyte Esterase (Negative) Urine RBC (0-5) /hpf Urine WBC (0-5) /hpf Urine WBC Clumps (None) /hpf Urine Bacteria (None) /hpf Urine Mucus (None) /hpf 08/10/22 08/10/22 08/10/22 Range/Units 03:47 06:39 08:07 WBC (3.8-10.6) k/uL Hgb (13.0-17.5) gm/dL Neutrophils # (1.3-7.7) k/uL PT (9.0-12.0) sec INR (<1.2) Sodium (137-145) mmol/L Creatinine (0.66-1.25) mg/dL Glucose (74-99) mg/dL POC Glucose (mg/dL) 207 H 218 H (70-110) mg/dL Plasma Lactic Acid Shaheed 3.9 H* (0.7-2.0) mmol/L Alkaline Phosphatase (38-126) U/L Troponin I (0.000-0.034) ng/mL Albumin (3.5-5.0) g/dL Urine Protein (Negative) Urine Glucose (UA) (Negative) Urine Blood (Negative) Ur Leukocyte Esterase (Negative) Urine RBC (0-5) /hpf Urine WBC (0-5) /hpf Urine WBC Clumps (None) /hpf Urine Bacteria (None) /hpf Urine Mucus (None) /hpf Microbiology - Last 24 Hours (Table) 08/09/22 17:50 Urine Culture - Preliminary Urine,Voided
[2022-08-10 12:46] LABS: Glucose,Whole Blood 289 mg/dL (70-110)
[2022-08-10 16:38] LABS: Glucose,Whole Blood 241 mg/dL (70-110)
--- NOTE | 2022-08-10 16:53 | CDI ---
Documentation Clarification Form Date: 08/10/2022 4:29:10 PM From: Ramona Lang RN, CCDS Admit Date: 08/09/2022 6:26:00 PM Patient Name: Neil Gibson Visit Number: [id number] Discharge Date: ATTENTION: The Clinical Documentation Specialists (CDI) and [facility] Coding Staff appreciate your assistance in clarifying documentation. Please respond to the clarification below the line at the bottom and electronically sign. The CDI & [facility] Coding staff will review the response and follow-up if needed. Please note: Queries are made part of the Legal Health Record. If you have any questions, please contact the author of this message via ITS. Dr. Saurabh Taylor The patient presenting from [facility] for increased fatigue and drowsiness, reports more altered than normal. Based on this information and the findings below, is there an additional diagnosis that is clinically appropriate for this patient? 07/1522 18:24 ER: Patient does meet criteria for severe sepsis diagnosis at 1820. History/Risk Factors: Atrial Fibrillation, Dementia, Diabetes Mellitus, Hypertension, Hyperlipidemia, Brain bleed, Former smoker Clinical Indicators: 86-year-old male with generalized weakness, falls. He has facial abrasions and contusions including forehead. Dry gangrene right first, fourth and fifth toes, cyanotic changes of the right great, fourth and fifth toe. 08/09 WBC 2.9, Neutrophils 10.3, Lactic acid 3.6, 2.5, 2.6 08/19 UA: Ur Leukocyte Esterase Large Urine WBC >182, Urine bacteria-moderate 08/09Vital signs: 151/79 94 22 97 % RA 08/09 CXR: Right-sided infiltrate with pleural effusion correlate for CHF otherwise consider pneumonia. Treatment: Rocephin 2 GM IVPB Q 24 HRS Azithromycin 500MG IVPB Once 08/09 .9NS 1,000 ML IV Bolus x1 Is there an additional diagnosis that is clinically appropriate for this patient? [ x ] Sepsis, present on admission [ ] Sepsis ruled out [ ] Other, please specify [ ] Unable to determine SIRS Criteria: 2 or more of the following may indicate SIRS Temperature < 96.8F (36C) or > 101.0F (38.3C) Heart Rate > 90 bpm Respiratory Rate > 20 breaths/min or PaCO2 < 32 mmHg White Blood Cell Count > 12,000 or < 4,000 cells/mm3 or > 10% bands (Template Last Reviewed: May 2022) [facility]
[2022-08-10] MEDS ORDERED: AZITHROMYCIN 500 MG TAB PO SCH (19:00)
[2022-08-10] MEDS ORDERED: HYDROcodone/APAP 5-325MG 1 EACH TAB PO PRN (19:01)
[2022-08-10] MEDS ORDERED: ACETAMINOPHEN TAB 325 MG TAB PO PRN (19:01)
[2022-08-10] MEDS: MORPHINE SULFATE 2 MG/ML SYRINGE IVP PRN (19:35)
[2022-08-10 19:50] LABS: Glucose,Whole Blood 97 mg/dL (70-110)
[2022-08-10] MEDS ORDERED: ATORVASTATIN 20 MG TAB PO SCH (21:00)
--- NOTE | 2022-08-10 21:52 | P.CRDCN ---
History of Present Illness History of present illness: HISTORY OF PRESENTING ILLNESS This is a pleasant 86 year old male with history of Afib, dementia, DM2, hard of hearing, HTN, HLD, CAD with prior PCI, former tobacco abuse. Patient presented with altered mental status and weakness and recent falls. Juliano was recently hospitalized for brain bleed and ischemic toes on the right foot and at that time medical therapy was recommended. Patient apparently had a fall 1 week ago and has been having worsening lower extremity wounds, foul smelling. On presentation patient had WBC 12.9, Hgb 12.2, lactic acid, 3.6, trop 0.167, 0.179, 0.18, UTI. EKG shows Afib with controlled V rates, Q waves V1-V2. Patient no answering questions appropriately. Per staff, family consider hospice. REVIEW OF SYSTEMS At the time of my exam: Unable to obtain secondary to altered mental status PHYSICAL EXAMINATION Vitals reviewed CONSTITUTIONAL: No apparent distress, ill appearing, appears in pain. HEENT: Head is normocephalic. Pupils are equal, round. Sclerae anicteric. Mucous membranes of the mouth are moist. No JVD. No carotid bruit. CHEST EXAMINATION: Lungs are clear to auscultation. No chest wall tenderness is noted on palpation or with deep breathing. HEART EXAMINATION: Irregular rate and rhythm. S1, S2 heard. No murmurs, gallops or rub. ABDOMEN: Soft, nontender. Positive bowel sounds. EXTREMITIES: No lower extremity edema and +RLE echymosis and ulcer with eschar NEUROLOGIC EXAMINATION: Patient is awake confused ASSESSMENT NSTEMI, likely type 2 CAD with history of PCI HTN Sepsis PAD Diabetic foot ulcer Brain bleed Persistent Afib, not on anticoagulation Lactic acidosis DM2 PLAN NSTEMI likely type 2 mechanism from sepsis and UTI. Continue with supportive care and digoxin for rate control and Toprol for antianginal purposes. Patient is a poor interventional candidate with recent brain bleed. Patient is high risk for any surgical procedure. Appears hospice appropriate. Continue to hold anticoagulation given subdural hematoma. Continue with supportive care. Please call with any questions. Past Medical History Past Medical History: Atrial Fibrillation, Dementia, Diabetes Mellitus, Hearing Disorder / Deafness, Hyperlipidemia, Hypertension, Memory Impairment Additional Past Medical History / Comment(s): neuropathy, brain bleed History of Any Multi-Drug Resistant Organisms: None Reported Past Surgical History: Appendectomy, Heart Catheterization With Stent, Tonsillectomy Past Anesthesia/Blood Transfusion Reactions: No Reported Reaction Date of Last Stent Placement:: 1996 Past Psychological History: Anxiety Smoking Status: Former smoker Past Alcohol Use History: None Reported Past Drug Use History: None Reported - Past Family History Mother Family Medical History: Cancer Additional Family Medical History / Comment(s): Father Family Medical History: Congestive Heart Failure (CHF) Additional Family Medical History / Comment(s): 82 years old Medications and Allergies Home Medications Medication Instructions Recorded Confirmed Type metFORMIN HCL [Glucophage] 1,000 mg PO BID 04/01/18 08/09/22 History Metoprolol Succinate (ER) [Toprol 25 mg PO DAILY 07/10/22 08/09/22 History XL] Acetaminophen Tab [Tylenol] 650 mg PO Q6H PRN 07/26/22 08/09/22 History Cholecalciferol [Vitamin D3 (25 50 mcg PO DAILY 07/26/22 08/09/22 History Mcg = 1000 Iu)] Digoxin [Digitek] 125 mcg PO DAILY 07/26/22 08/09/22 History Insulin Lispro [humaLOG Kwikpen] See Protocol SQ ACHS 07/26/22 08/09/22 History Linagliptin [Tradjenta] 5 mg PO DAILY 07/26/22 08/09/22 History Omeprazole [PriLOSEC] 20 mg PO DAILY 07/26/22 08/09/22 History Atorvastatin [Lipitor] 20 mg PO HS tab 07/28/22 08/09/22 Rx levETIRAcetam [Keppra] 500 mg PO Q12HR tab 07/28/22 08/09/22 Rx Insulin Glargine,Hum.rec.anlog 10 units SQ HS 08/09/22 08/09/22 History [Lantus Solostar Pen] Insulin Lispro [humaLOG Kwikpen] 4 unit SQ AC-TID 08/09/22 08/09/22 History Allergies Allergy/AdvReac Type Severity Reaction Status Date / Time No Known Allergies Allergy Verified 08/09/22 13:48 Physical Exam Vitals: Vital Signs Temp Pulse Pulse Resp BP BP BP 08/10/22 20:00 99.5 F 93 18 141/66 08/10/22 16:24 98.6 F 99 20 131/70 08/10/22 13:12 98.2 F 88 20 147/50 08/10/22 12:20 85 18 113/69 08/10/22 11:30 121/66 08/10/22 10:00 114/69 08/10/22 07:59 08/10/22 07:33 89 20 136/63 08/10/22 05:05 92 16 134/87 08/10/22 01:40 85 20 102/67 08/09/22 23:18 80 18 117/90 Pulse Ox 08/10/22 20:00 93 L 08/10/22 16:24 98 08/10/22 13:12 97 08/10/22 12:20 95 08/10/22 11:30 08/10/22 10:00 08/10/22 07:59 95 08/10/22 07:33 95 08/10/22 05:05 93 L 08/10/22 01:40 94 L 08/09/22 23:18 95 Intake and Output 08/10/22 08/10/22 08/10/22 06:59 14:59 22:59 Output Total 800 300 Balance -800 -300 Output: Urine 800 300 Other: Voiding Method Indwelling Catheter Indwelling Catheter Weight 81.647 kg Results 08/09/22 13:50 08/09/22 14:15 Cardiac Enzymes 08/09/22 08/10/22 Range/Units 20:56 00:00 Troponin I 0.179 H* 0.180 H* (0.000-0.034) ng/mL Current Medications Generic Name Dose Route Start Last Admin Trade Name Freq PRN Reason Stop Dose Admin Acetaminophen 650 mg 08/10/22 19:01 Acetaminophen Tab 325 Mg Tab PO Q6HR PRN Fever and/ or Mild Pain Hydrocodone Bitart/Acetaminophen 1 each 08/10/22 19:01 Hydrocodone/Apap 5-325mg 1 Each Tab PO Q6HR PRN Moderate to Severe Pain (4-10) Atorvastatin Calcium 20 mg 08/10/22 21:00 08/10/22 20:11 Atorvastatin 20 Mg Tab PO 20 mg HS MANUEL Administration Digoxin 125 mcg 08/10/22 09:00 08/10/22 08:30 Digoxin 125 Mcg Tab PO 125 mcg DAILY MANUEL Administration Sodium Chloride 1,000 mls @ 100 mls/hr 08/09/22 18:30 08/10/22 13:59 Saline 0.9% IV 100 mls/hr .Q10H MANUEL Administration Ceftriaxone Sodium 2 gm/ 50 mls @ 100 mls/hr 08/10/22 09:00 08/10/22 08:42 Sodium Chloride IVPB 08/13/22 09:29 100 mls/hr Q24HR MANUEL Administration Protocol Insulin Aspart 0 unit 08/10/22 07:30 08/10/22 20:11 Insulin Aspart (Novolog) 100 Unit/Ml Vial SQ Not Given ACHS MANUEL Protocol Levetiracetam 500 mg 08/10/22 09:00 08/10/22 20:11 Levetiracetam 500 Mg Tab PO 500 mg Q12HR MANUEL Administration Metoprolol Succinate 25 mg 08/10/22 09:00 08/10/22 08:32 Metoprolol Succinate (Er) 25 Mg Tab.Er.24h PO 25 mg DAILY MANUEL Administration Miscellaneous Information 1 each 08/09/22 18:26 Pneumonia Protocol Utilized 1 Each Misc PO ONCE PRN Per Protocol Morphine Sulfate 2 mg 08/10/22 19:01 08/10/22 19:35 Morphine Sulfate 2 Mg/Ml Syringe IVP 2 mg Q6HR PRN Administration Severe Breakthrough Pain Naloxone HCl 0.2 mg 08/09/22 18:31 Naloxone 0.4 Mg/Ml 1 Ml Vial IV Q2M PRN Opioid Reversal Pantoprazole Sodium 40 mg 08/11/22 07:30 Pantoprazole 40 Mg Tablet PO AC-BRKFST [facility] Intake and Output 08/10/22 08/10/22 08/10/22 06:59 14:59 22:59 Output Total 800 300 Balance -800 -300 Output: Urine 800 300 Other: Voiding Method Indwelling Catheter Indwelling Catheter Weight 81.647 kg Patient Weight 08/11/22 06:59 Weight 81.647 kg 08/09/22 13:50 08/09/22 14:15
[2022-08-11] MEDS: MORPHINE SULFATE 2 MG/ML SYRINGE IVP PRN (01:29)
[2022-08-11] MEDS: INSULIN ASPART (NovoLOG) 100 UNIT/ML VIAL SQ SCH (05:51)
[2022-08-11] MEDS: SODIUM CHLORIDE 0.9% 1,000 ML IV SCH (05:51)
[2022-08-11 05:54] LABS: Glucose,Whole Blood 144 mg/dL (70-110)
[2022-08-11] MEDS ORDERED: PANTOPRAZOLE 40 MG TABLET PO SCH (07:30)
[2022-08-11 07:51] VITALS: BP 179/78; PULSE 86; RESP 20; TEMP 97.6
[2022-08-11] MEDS: levETIRAcetam 500 MG TAB PO SCH (09:18)
[2022-08-11] MEDS: METOPROLOL SUCCINATE (ER) 25 MG TAB.ER.24H PO SCH (09:18)
[2022-08-11] MEDS: DIGOXIN 125 MCG TAB PO SCH (09:18)
--- NOTE | 2022-08-11 10:33 | P.CONS ---
History of Present Illness - Reason for Consult Consult date: 08/10/22 Goals of care Requesting physician: Saurabh Taylor - Chief Complaint AMS - History of Present Illness The patient is an 86-year-old male with a past medical history of peripheral arterial disease (with chronic occlusions of right great and fourth and fifth toe), A. fib (not on anticoagulation due to recent intracranial hemorrhage), CAD status post stents, hypertension, type II DM, and hyperlipidemia. He is a resident of [facility] who was brought into the emergency room for confusion and generalized weakness. The patient's family including his 2 sons and daughter were at the bedside and supplemented the history. They report of the patient has had multiple falls recently at [facility] including 2 this past Sunday. They state that patient developed a left forehead bruise as well as periorbital ecchymosis after the fall. The patient is also been complaining of intermittent right foot and toe pain. He was also noted to have cloudy and foul smelling urine and had endorsed dysuria to the [facility] staff recently. At time of interview, the patient reported feeling at his baseline and had no active complaints. He did endorse intermittent right foot pain occurring mostly at night. He denied chest discomfort, shortness of breath, cough, fever, or chil ls. The patient underwent an extensive evaluation in the emergency room with a CT brain and C-spine without contrast revealing a subdural hematoma along with the left superolateral convexity measuring 1.2 cm versus 1.6 cm on 07/28 with midline shift measuring 6 mm versus 7 mm previously. A subdural collection was noted to have acute and chronic blood products with no herniation or additional acute bleeding seen. 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 EKG had revealed A. fib at [address]/T-wave changes noted as reviewed by me. Chest x-ray had revealed right-sided infiltrate with pleural effusion, concerning for pneumonia versus CHF. Right foot x-ray revealed a subacute fracture involving the distal phalanx of the first digit with arthropathy and soft tissue edema. Laboratory evaluation was remarkable for leukocytosis of 12.9, sodium 134, potassium 3.9, BUN 14, creatinine 0.55, lactic acid 3.6, troponin 0.167, UA consistent with UTI, urine toxicology negative. Vascular surgery was also consulted for ischemic toes. CT angiogram with runo ff was ordered and reviewed with findings of significant chronic peripheral arterial disease with superficial femoral artery occlusion. However due to patient's subacute/acute brain bleed anticoagulation is not recommended. No surgical intervention was recommended for revascularization due to the fact that the patient cannot be anticoagulated following the procedure. This was discussed with the patient's daughter and medical management was agreed upon. Review of Systems ROS unobtainable: due to mental status Past Medical History Past Medical History: Atrial Fibrillation, Dementia, Diabetes Mellitus, Hearing Disorder / Deafness, Hyperlipidemia, Hypertension, Memory Impairment Additional Past Medical History / Comment(s): neuropathy, brain bleed History of Any Multi-Drug Resistant Organisms: None Reported Past Surgical History: Appendectomy, Heart Catheterization With Stent, Tonsillectomy Past Anesthesia/Blood Transfusion Reactions: No Reported Reaction Date of Last Stent Placement:: 1996 Past Psychological History: Anxiety Smoking Status: Former smoker Past Alcohol Use History: None Reported Past Drug Use History: None Reported - Past Family History Mother Family Medical History: Cancer Additional Family Medical History / Comment(s): Father Family Medical History: Congestive Heart Failure (CHF) Additional Family Medical History / Comment(s): 82 years old Medications and Allergies Home Medications Medication Instructions Recorded Confirmed Type Metoprolol Succinate (ER) [Toprol 25 mg PO DAILY 07/10/22 08/09/22 History XL] Acetaminophen Tab [Tylenol] 650 mg PO Q6H PRN 07/26/22 08/09/22 History Omeprazole [PriLOSEC] 20 mg PO DAILY 07/26/22 08/09/22 History levETIRAcetam [Keppra] 500 mg PO Q12HR tab 07/28/22 08/09/22 Rx Allergies Allergy/AdvReac Type Severity Reaction Status Date / Time No Known Allergies Allergy Verified 08/09/22 13:48 Physical Exam Vitals: Vital Signs Temp Pulse Pulse Resp BP BP Pulse Ox 08/10/22 13:12 98.2 F 88 20 147/50 97 08/10/22 12:20 85 18 113/69 95 08/10/22 11:30 121/66 08/10/22 10:00 114/69 08/10/22 07:59 95 08/10/22 07:33 89 20 136/63 95 08/10/22 05:05 92 16 134/87 93 L 08/10/22 01:40 85 20 102/67 94 L 08/09/22 23:18 80 18 117/90 95 08/09/22 20:00 97.2 F L 81 16 119/68 96 08/09/22 18:00 85 20 136/66 98 08/09/22 16:15 86 20 152/71 95 08/09/22 15:20 86 18 136/78 92 L Intake and Output 08/09/22 08/10/22 08/10/22 22:59 06:59 14:59 Output Total 800 Balance -800 Output: Urine 800 Other: Voiding Method Indwelling Catheter Weight 81.647 kg General: Well developed, well nourished. No acute distress. Chronically ill appearing HEENT: Head with abrasion and brusing. Normocephalic. Sclera are clear. Mucus membranes moist. [place] Lungs: Equal expansion. Respirations even and nonlabored. On 2L NC. Abdomen/GI: Soft, nondistended, nontender. : Quinonez catheter draining clear yellow urine. Musculoskeletal/ Extremities: No joint deformity or swelling. No contractures or gross atrophy. + generalized weakness Skin: Warm and dry Neurologic: Awake, alert and oriented times1-2. CN II-XII grossly intact. No focal deficits. Psychiatric: Appropriate mood and affect. Results CBC & Chem 7: 08/09/22 13:50 08/09/22 14:15 Labs: Abnormal Lab Results - Last 24 Hours (Table) 08/09/22 08/09/22 08/09/22 Range/Units 14:15 15:40 15:42 PT 12.8 H (9.0-12.0) sec INR 1.3 H (<1.2) Sodium 134 L (137-145) mmol/L Creatinine 0.55 L (0.66-1.25) mg/dL Glucose 221 H (74-99) mg/dL POC Glucose (mg/dL) (70-110) mg/dL Plasma Lactic Acid Shaheed (0.7-2.0) mmol/L Alkaline Phosphatase 143 H (38-126) U/L Troponin I 0.167 H* (0.000-0.034) ng/mL Albumin 3.3 L (3.5-5.0) g/dL Urine Protein (Negative) Urine Glucose (UA) (Negative) Urine Blood (Negative) Ur Leukocyte Esterase (Negative) Urine RBC (0-5) /hpf Urine WBC (0-5) /hpf Urine WBC Clumps (None) /hpf Urine Bacteria (None) /hpf Urine Mucus (None) /hpf 08/09/22 08/09/22 08/09/22 Range/Units 17:50 18:44 20:56 PT (9.0-12.0) sec INR (<1.2) Sodium (137-145) mmol/L Creatinine (0.66-1.25) mg/dL Glucose (74-99) mg/dL POC Glucose (mg/dL) (70-110) mg/dL Plasma Lactic Acid Shaheed 2.5 H* (0.7-2.0) mmol/L Alkaline Phosphatase (38-126) U/L Troponin I 0.179 H* (0.000-0.034) ng/mL Albumin (3.5-5.0) g/dL Urine Protein 1+ H (Negative) Urine Glucose (UA) 4+ H (Negative) Urine Blood Moderate H (Negative) Ur Leukocyte Esterase Large H (Negative) Urine RBC 62 H (0-5) /hpf Urine WBC >182 H (0-5) /hpf Urine WBC Clumps Moderate H (None) /hpf Urine Bacteria Moderate H (None) /hpf Urine Mucus Rare H (None) /hpf 08/09/22 08/09/22 08/10/22 Range/Units 22:34 23:23 00:00 PT (9.0-12.0) sec INR (<1.2) Sodium (137-145) mmol/L Creatinine (0.66-1.25) mg/dL Glucose (74-99) mg/dL POC Glucose (mg/dL) 282 H (70-110) mg/dL Plasma Lactic Acid Shaheed 2.6 H* (0.7-2.0) mmol/L Alkaline Phosphatase (38-126) U/L Troponin I 0.180 H* (0.000-0.034) ng/mL Albumin (3.5-5.0) g/dL Urine Protein (Negative) Urine Glucose (UA) (Negative) Urine Blood (Negative) Ur Leukocyte Esterase (Negative) Urine RBC (0-5) /hpf Urine WBC (0-5) /hpf Urine WBC Clumps (None) /hpf Urine Bacteria (None) /hpf Urine Mucus (None) /hpf 08/10/22 08/10/22 08/10/22 Range/Units 03:47 06:39 08:07 PT (9.0-12.0) sec INR (<1.2) Sodium (137-145) mmol/L Creatinine (0.66-1.25) mg/dL Glucose (74-99) mg/dL POC Glucose (mg/dL) 207 H 218 H (70-110) mg/dL Plasma Lactic Acid Shaheed 3.9 H* (0.7-2.0) mmol/L Alkaline Phosphatase (38-126) U/L Troponin I (0.000-0.034) ng/mL Albumin (3.5-5.0) g/dL Urine Protein (Negative) Urine Glucose (UA) (Negative) Urine Blood (Negative) Ur Leukocyte Esterase (Negative) Urine RBC (0-5) /hpf Urine WBC (0-5) /hpf Urine WBC Clumps (None) /hpf Urine Bacteria (None) /hpf Urine Mucus (None) /hpf 08/10/22 Range/Units 12:42 PT (9.0-12.0) sec INR (<1.2) Sodium (137-145) mmol/L Creatinine (0.66-1.25) mg/dL Glucose (74-99) mg/dL POC Glucose (mg/dL) 289 H (70-110) mg/dL Plasma Lactic Acid Shaheed (0.7-2.0) mmol/L Alkaline Phosphatase (38-126) U/L Troponin I (0.000-0.034) ng/mL Albumin (3.5-5.0) g/dL Urine Protein (Negative) Urine Glucose (UA) (Negative) Urine Blood (Negative) Ur Leukocyte Esterase (Negative) Urine RBC (0-5) /hpf Urine WBC (0-5) /hpf Urine WBC Clumps (None) /hpf Urine Bacteria (None) /hpf Urine Mucus (None) /hpf Microbiology - Last 24 Hours (Table) 08/09/22 17:50 Urine Culture - Preliminary Urine,Voided Chest x-ray: report reviewed CT Scan - head: report reviewed Assessment and Plan Assessment: Social * Occupation - retired * Marital status - * Children/grandchildren - 3 adult children, two sons and one daughter * Residence - House with son, Kong * ETOH - None reported * Tobacco - Former smoker * Illicit drugs - None reported Spiritual/Cultural * A spiritual person - Yes * Latter-Day - Zoroastrianism * Functional Assessment * Able to walk independently - No * Assistive devices - walker * Able to use the bathroom independently - No * Continent - No * Require assistance bathing- yes * Able to feed self - yes * Who prepares meals - son * How many meals a day eaten - * Transportation - family * Able to shop - no * Who manages medications - son * Who manages finances - son PPS score - 30% Psychological/Emotional * Dementia present - yes * Insight and judgment - not intact * Depression - no * Suicidal thoughts - no * Good support system - yes, family * Patients goals - comfort * Frequent hospitalizations - yes * Desire to keep coming back to the hospital for treatment - no Symptoms * Pain - 0/10 * Fatigue - + generalized weakness and fatigue * SOB - No * Insomnia - No * N/V - No * Anxiety - No * Depression - No * Confusion - Yes * Agitation - No * Hallucinations - No * Appetite/weight loss - Decreased appetite, no recent weight loss * Dysphagia - No * Constipation - No * Incontinence - Yes, wears brief at home. CUrrently has Quinonez catheter * Itch - No * Cough - No Plan: Summary/Goals - Met with the patient and his son, Kong. The patient resides with Kong. He reports that the patient has declined significantly since November. He was quite active at that point and even cutting his own grass. He started falling and now he has deliced both physically and cognitively. The patient is heard of hearing and is pleasantly confused. Information regarding palliative care and hospice philosophies provided. The patient's son has a good understanding of the patient's situation with his subdural hematoma and ischemic toes. He states that his father has lived a good life. He would like to focus on comfort and quality of life for his dad now. He stated he would like to talk to his brother and sister, but is sure they would agree with hospice. Patient's family to meet with [facility] for informational visit Recommendations - Hospice home Advanced Directives - None on file Code Status - DNR Thank you for this consultation [facility] [id number] Email: [email or web address]
--- NOTE | 2022-08-11 11:16 | P.PN ---
Subjective Progress Note Date: 08/11/22 The patient is an 86-year-old male with a past medical history of peripheral arterial disease (with chronic occlusions of right great and fourth and fifth toe), A. fib (not on anticoagulation due to recent intracranial hemorrhage), CAD status post stents, hypertension, type II DM, and hyperlipidemia. He is a resident of [facility] who was brought into the emergency room for confusion and generalized weakness. The patient's family including his 2 sons and daughter were at the bedside and supplemented the history. They report of the patient has had multiple falls recently at [facility] including 2 this past Sunday. They state that patient developed a left forehead bruise as well as periorbital ecchymosis after the fall. The patient is also been complaining of intermittent right foot and toe pain. He was also noted to have cloudy and foul smelling urine and had endorsed dysuria to the [facility] staff recently. At time of interview, the patient reported feeling at his baseline and had no active complaints. He did endorse intermittent right foot pain occurring mostly at night. He denied chest discomfort, shortness of breath, cough, fever, or chills. The patient underwent an extensive evaluation in the emergency room with a CT brain and C-spine without contrast revealing a subdural hematoma along with the left superolateral convexity measuring 1.2 cm versus 1.6 cm on 07/28 with midline shift measuring 6 mm versus 7 mm previously. A subdural collection was noted to have acute and chronic blood products with no herniation or additional acute bleeding seen. 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 EKG had revealed A. fib at [address]/T-wave changes noted as reviewed by me. Chest x-ray had revealed right-sided infiltrate with pleural effusion, concerning for pneumonia versus CHF. Right foot x-ray revealed a subacute fracture involving the distal phalanx of the first digit with arthropathy and soft tissue edema. Laboratory evalua tion was remarkable for leukocytosis of 12.9, sodium 134, potassium 3.9, BUN 14, creatinine 0.55, lactic acid 3.6, troponin 0.167, UA consistent with UTI, urine toxicology negative. Vascular surgery was also consulted for ischemic toes. CT angiogram with runoff was ordered and reviewed with findings of significant chronic peripheral arterial disease with superficial femoral artery occlusion. However due to patient's subacute/acute brain bleed anticoagulation is not recommended. No surgical intervention was recommended for revascularization due to the fact that the patient cannot be anticoagulated following the procedure. This was discussed with the patient's daughter and medical management was agreed upon. 08/10 Met with the patient and his son, Kong. The patient resides with Kong. He reports that the patient has declined significantly since November. He was quite active at that point and even cutting his own grass. He started falling and now he has deliced both physically and cognitively. The patient is heard of hearing and is pleasantly confused. Information regarding palliative care and hospice philosophies provided. The patient's son has a good understanding of the pat ient's situation with his subdural hematoma and ischemic toes. He states that his father has lived a good life. He would like to focus on comfort and quality of life for his dad now. He stated he would like to talk to his brother and sister, but is sure they would agree with hospice. Patient's family to meet with [facility] for informational visit Objective - Vital Signs Vital signs: Vital Signs Temp 97.6 F 08/11/22 07:50 Pulse 86 08/11/22 07:50 Resp 20 08/11/22 07:50 BP 179/78 08/11/22 07:50 Pulse Ox 97 08/11/22 07:50 FiO2 Intake & Output 08/10/22 08/11/22 08/11/22 18:59 06:59 18:59 Output Total 300 300 300 Balance -300 -300 -300 Weight 81.647 kg Output: Urine 300 300 300 Other: Voiding Method Indwelling Catheter Indwelling Catheter Indwelling Catheter - Exam General: Well developed, well nourished. No acute distress. Chronically ill appearing HEENT: Head with abrasion and brusing. Normocephalic. Sclera are clear. Mucus membranes moist. LITTLE SHELL TRIBE Lungs: Equal expansion. Respirations even and nonlabored. On 2L NC. Abdomen/GI: Soft, nondistended, nontender. : Quinonez catheter draining clear yellow urine. Musculoskeletal/ Extremities: No joint deformity or swelling. No contractures or gross atrophy. + generalized weakness Skin: Warm and dry Neurologic: Awake, alert and oriented times1-2. CN II-XII grossly intact. No focal deficits. Psychiatric: Appropriate mood and affect. - Labs CBC & Chem 7: 08/09/22 13:50 08/09/22 14:15 Labs: Abnormal Lab Results - Last 24 Hours (Table) 08/10/22 08/10/22 08/11/22 Range/Units 12:42 16:36 05:50 POC Glucose (mg/dL) 289 H 241 H 144 H (70-110) mg/dL Microbiology - Last 24 Hours (Table) 08/09/22 19:30 Blood Culture - Preliminary Blood No Growth after 24 hours 08/09/22 19:15 Blood Culture - Preliminary Blood No Growth after 24 hours 08/09/22 17:50 Urine Culture - Preliminary Urine,Voided Gram Neg Bacilli Assessment and Plan Assessment: Symptoms * Pain - 0/10 * Fatigue - + generalized weakness and fatigue * SOB - No * Insomnia - No * N/V - No * Anxiety - No * Depression - No * Confusion - Yes * Agitation - No * Hallucinations - No * Appetite/weight loss - Decreased appetite, no recent weight loss * Dysphagia - No * Constipation - No * Incontinence - Yes, wears brief at home. Currently has Quinonez catheter * Itch - No * Cough - No Plan: Summary/Goals - The patient is resting in bed and appears comfortable. No visitors are present. Per rifle case repairer, Srinivas Aceves met with the family yesterday and he was signed on to hospice. He is scheduled to go to hospice home today by ambulance. Recommendations - Srin[facility] Hospice home Advanced Directives - None on file Code Status - DNR Thank you for this consultation [facility] [id number] Email: [email or web address]
--- NOTE | 2022-08-11 11:30 | P.DS ---
Providers Date of admission: 08/09/22 18:26 Expected date of discharge: 08/11/22 Attending physician: Leslie Brand MD Consults: 08/09/22 18:26 Consult Physician Routine Consulting Provider: Daria Quinonez Consult Reason/Comments: Ischemic toes Do you want consulting provider notified?: Yes Consult Physician Routine Consulting Provider: Bharat Howard Consult Reason/Comments: eval for t2 changes Do you want consulting provider notified?: Already Contacted 08/10/22 12:39 Consult to Palliative Care Urgent Consulting Provider: Kiki Long Consult Reason/Comments: Intracranial hemorrhage Do you want consulting provider notified?: Yes Primary care physician: Arturo Kamara MD Hospital Course: Discharge Diagnosis: Acute metabolic encephalopathy Urinary tract infection Acute on chronic intracranial bleeds R toes ischemia (following with Dr Quinonez) Multiple recent falls Possible T2 superior end-plate fracture Troponin elevation Hyperglycemia Leukocytosis, reactive Mild hyponatremia Lactic acidosis Hospital Course: 86-year-old male with a PMH of peripheral arterial disease (with chronic occlusions of right great and fourth and fifth toe), A. fib (not on anticoagulation due to recent intracranial hemorrhage), CAD status post stents, hypertension, type II DM, and hyperlipidemia resident of [facility] who was brought into the emergency room for confusion and generalized weakness. The patient underwent an extensive evaluation in the emergency room with a CT brain and C-spine without contrast revealing a subdural hematoma along with the left superolateral convexity measuring 1.2 cm versus 1.6 cm on 07/28 with midline shift measuring 6 mm versus 7 mm previously. A subdural collection was noted to have acute and chronic blood products with no herniation or additional acute bleeding seen. 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 EKG had revealed A. fib at [address]/T-wave changes noted as reviewed by me. Chest x-ray had revealed right-sided infiltrate with pleural effusion, concerning for pneumonia versus CHF. Right foot x-ray revealed a subacute fracture involving the distal phalanx of the first digit with arthropathy and soft tissue edema. Laboratory evaluation was remarkable for leukocytosis of 12.9, sodium 134, potassium 3.9, BUN 14, creatinine 0.55, lactic acid 3.6, troponin 0.167, UA consistent with UTI, urine toxicology negative. Patient admitted for increased confusion, traumatic injuries, and generalized weakness. Patient was evaluated by cardiology, orthospine, urology. No surgical interventions recommended. Patient being discharged home with hospice. Patient seen and examined at bedside. Vital signs reviewed and stable. General: non toxic, no distress, appears at stated age Derm: Left forehead large bruise noted, L periorbital ecchymosis noted, warm Head: Normocephalic, symmetric Eyes: EOMI, no lid lag, anicteric sclera, pupils equal round reactive to light ENT: Nose and ears atraumatic Neck: No cervical lymphadenopathy, trachea midline, supple Mouth: no lip lesion, mucus membranes moist Cardiovascular: S1S2 reg, no murmur, unable to palpate dorsalis pedis pulses bilaterally, no edema Lungs: CTA bilateral, no rhonchi, no rales, no accessory muscle use Abdominal: soft, nontender to palpation, no guarding Ext: muscle strength 4 out of 5 in all 4 extremities grossly, no gross muscle atrophy, no contractures, L great, third and 4th toe necrotic appearing Neuro: CN II-XI grossly intact, no gross focal neuro deficits Psych: Alert, oriented to person and place, not oriented to brianna A total of 37 minutes of time were spent preparing this complex discharge summary. Patient was discharged on 08/11/22 at 9:43. Patient Condition at Discharge: Poor Plan - Discharge Summary Discharge Rx Participant: No New Discharge Prescriptions: Continue Metoprolol Succinate (ER) [Toprol XL] 25 mg PO DAILY Acetaminophen Tab [Tylenol] 650 mg PO Q6H PRN PRN Reason: Fever And/ Or Pain Omeprazole [PriLOSEC] 20 mg PO DAILY levETIRAcetam [Keppra] 500 mg PO Q12HR tab Discontinued metFORMIN HCL [Glucophage] 1,000 mg PO BID Linagliptin [Tradjenta] 5 mg PO DAILY Digoxin [Digitek] 125 mcg PO DAILY Insulin Glargine,Hum.rec.anlog [Lantus Solostar Pen] 10 units SQ HS Insulin Lispro [humaLOG Kwikpen] 4 unit SQ AC-TID Cholecalciferol [Vitamin D3 (25 Mcg = 1000 Iu)] 50 mcg PO DAILY Insulin Lispro [humaLOG Kwikpen] See Protocol SQ ACHS Atorvastatin [Lipitor] 20 mg PO HS tab Discharge Medication List Metoprolol Succinate (ER) [Toprol XL] 25 mg PO DAILY 07/10/22 [History] Acetaminophen Tab [Tylenol] 650 mg PO Q6H PRN 07/26/22 [History] Omeprazole [PriLOSEC] 20 mg PO DAILY 07/26/22 [History] levETIRAcetam [Keppra] 500 mg PO Q12HR tab 07/28/22 [Rx] Follow up Appointment(s)/Referral(s): None,Stated [REFERRING] - 1-2 days Patient Instructions/Handouts: Hospice Care (GEN), Intracranial Hematoma (GEN) Discharge Disposition: HOME WITH HOSPICE
--- NOTE | 2022-08-14 10:34 | CDI ---
Documentation Clarification Form Date: 08/14/2022 10:23:07 AM From: Abby Pierce Admit Date: 08/09/2022 6:26:00 PM Patient Name: Neil Gibson Visit Number: [id number] Discharge Date: 08/11/2022 11:31:00 AM ATTENTION: The Clinical Documentation Specialists (CDI) and [facility] Coding Staff appreciate your assistance in clarifying documentation. Please respond to the clarification below the line at the bottom and electronically sign. The CDI & [facility] Coding staff will review the response and follow-up if needed. Please note: Queries are made part of the Legal Health Record. If you have any questions, please contact the author of this message via ITS. Dr. Saurabh Taylor Per cardiology consult is documenting sepsis. "NSTEMI likely type II mechanism from sepsis and UTI." Documentation of sepsis is not carried through chart. Please clarify if patient had sepsis or was it ruled out. History/Risk Factors: UTI, PVOD with gangrene, Diabetes, lactic acidosis Clinical Indicators: WBC 12.9 Lactic acid: 3.6 Blood cultures: Negative Vitals signs: 97.0 F, 94, 22, 151/79, 97% Treatment: Rocephin, Zithromax ID Consult: Antibiotics: Rocephin Zithromax IV Bolus: Did patient have Sepsis or was it ruled out. [ ] Sepsis, present on admission [ ] Sepsis, developed during stay, not present on admission [ ] Sepsis ruled out [ ] Other, please specify [ ] Unable to determine SIRS Criteria: 2 or more of the following may indicate SIRS Temperature < 96.8F (36C) or > 101.0F (38.3C) Heart Rate > 90 bpm Respiratory Rate > 20 breaths/min or PaCO2 < 32 mmHg White Blood Cell Count > 12,000 or < 4,000 cells/mm3 or > 10% bands MTDD
== END 2022-08-11 11:31 | disposition hospice, home (50) | DRG 871 ==
LOC: EC 13:30 → 4SSUR 18:26 → 3SCARD 08-10 00:05
PROVIDERS: ADMIT Family Medicine; ATTEND Family Medicine
DX: A41.9 Sepsis, unspecified organism (principal); G93.41 Metabolic encephalopathy; I21.A1 Myocardial infarction type 2; N39.0 Urinary tract infection, site not specified; E11.52 Type 2 diabetes mellitus with diabetic peripheral angiopathy with gangrene; E87.1 Hypo-osmolality and hyponatremia; E87.20 Acidosis, unspecified; F03.94 Unspecified dementia, unspecified severity, with anxiety; I48.19 Other persistent atrial fibrillation; Z79.84 Long term (current) use of oral hypoglycemic drugs; Z79.4 Long term (current) use of insulin; Z79.01 Long term (current) use of anticoagulants; E11.621 Type 2 diabetes mellitus with foot ulcer; E78.5 Hyperlipidemia, unspecified; Z51.5 Encounter for palliative care; Z66 Do not resuscitate; I10 Essential (primary) hypertension; L89.891 Pressure ulcer of other site, stage 1; S06.5XAD Traumatic subdural hemorrhage with loss of consciousness status unknown, subsequent encounter; Z20.822 Contact with and (suspected) exposure to COVID-19; F41.9 Anxiety disorder, unspecified; Z87.891 Personal history of nicotine dependence; Z91.81 History of falling; R29.6 Repeated falls; H91.90 Unspecified hearing loss, unspecified ear; Z79.899 Other long term (current) drug therapy; Z82.49 Family history of ischemic heart disease and other diseases of the circulatory system; Z86.73 Personal history of transient ischemic attack (TIA), and cerebral infarction without residual deficits; Z95.5 Presence of coronary angioplasty implant and graft; S00.81XA Abrasion of other part of head, initial encounter; S00.12XA Contusion of left eyelid and periocular area, initial encounter
CPT/HCPCS: 36415; 70450; 71045; 71046; 72125; 80053; 80306; 81001; 83605; 84484; 85025; 85610; 85730; 87040; 87077; 87086; 87186; 87449; 87636; 93005; 96361; 96365; 96366; 96368; 96375; 99291